=== PATIENT | male | born 1985 | race Caucasian/White ===

== ENCOUNTER 2017-05-17 11:17 | Emergency (ER) | payer OTHER ==
[2017-05-17 11:48] VITALS: BP 132/88
== END 2017-05-17 13:12 | disposition left against medical advice (07) ==
LOC: UCCORT 11:17
DX: Z53.21 Procedure and treatment not carried out due to patient leaving prior to being seen by health care provider (principal)

== ENCOUNTER 2017-05-22 08:44 | Emergency (ER) | payer OTHER ==
[2017-05-22 09:56] VITALS: BP 163/86
--- NOTE | 2017-05-22 10:27 | UC ---
Throat Pain/Nasal Chris HPI - HPI Summary HPI Summary: 31 year old male with sore throat. sick last week and ST started in the past day or so. finished chemo for stage 4 ca last month - History of Current Complaint Chief Complaint: UCGeneralIllness Stated Complaint: SORE THROAT Time Seen by Provider: 05/22/17 09:58 Hx Obtained From: Patient Onset/Duration: Sudden Onset Pain Intensity: 3 - Allergies/Home Medications Allergies/Adverse Reactions: Allergies Allergy/AdvReac Type Severity Reaction Status Date / Time No Known Allergies Allergy Verified 05/22/17 09:56 PMH/Surg Hx/FS Hx/Imm Hx Previously Healthy: Yes Cancer History: Colorectal Cancer Other History Of: Negative For: HIV, Hepatitis B, Hepatitis C - Surgical History Surgical History: Yes Surgery Procedure, Year, and Place: tonsillectomy, adenoid removal, mole removal , screws in right hand. RIGHT COLON RESECTION AND ANASTOMOSIS - Family History Known Family History: Positive: Cardiac Disease - WPW in family, Hypertension - Social History Occupation: Disabled Lives: With Family Alcohol Use: None Substance Use Type: Marijuana Smoking Status (MU): Heavy Every Day Tobacco Smoker Type: Cigarettes Amount Used/How Often: 1/2 ppd Length of Time of Smoking/Using Tobacco: 19 YRS Household Exposure Type: Cigarettes - Immunization History Most Recent Influenza Vaccination: not this season Most Recent Tetanus Shot: 2010 Review of Systems Constitutional: Negative Skin: Negative Eyes: Negative ENT: Sore Throat Respiratory: Negative Cardiovascular: Negative Gastrointestinal: Negative Genitourinary: Negative Motor: Negative Neurovascular: Negative Musculoskeletal: Negative Neurological: Negative Psychological: Negative Is Patient Immunocompromised?: Yes All Other Systems Reviewed And Are Negative: Yes Physical Exam Triage Information Reviewed: Yes Appearance: Well-Appearing, No Pain Distress, Well-Nourished Vital Signs: Initial Vital Signs Temp 99.2 F 05/22/17 09:52 Pulse 111 05/22/17 09:52 Resp 14 05/22/17 09:52 BP 163/86 05/22/17 09:52 Pulse Ox 100 05/22/17 09:52 Vital Signs Reviewed: Yes Eye Exam: Normal ENT Exam: Normal ENT: Positive: Pharyngeal erythema, Tonsillar swelling. Negative: Tonsillar exudate Dental Exam: Normal Neck exam: Normal Neck: Positive: 1 Respiratory Exam: Normal Cardiovascular Exam: Normal Musculoskeletal Exam: Normal Neurological Exam: Normal Psychological Exam: Normal Skin Exam: Normal Throat Pain/Nasal Course/Dx - Differential Dx/Diagnosis Provider Diagnoses: Strep throat Discharge - Discharge Plan Condition: Good Disposition: HOME Prescriptions: Amoxicillin PO (*) [Amoxicillin 875 MG (*)] 875 mg PO BID #20 tab Magic Mouth Was-DEREK/MAAL/LIDO* 5 ml SWISH SPIT QID #120 ml Patient Education Materials: Strep Throat (ED) Referrals: No Primary Care Phys,NOPCP [Primary Care Provider] - 4 Days (for follow up of high blood pressure )
== END 2017-05-22 10:38 | disposition home or self-care (01) ==
LOC: UCCORT 08:44
DX: J02.0 Streptococcal pharyngitis (principal); F17.210 Nicotine dependence, cigarettes, uncomplicated
CPT/HCPCS: 87651; 99212; G0463

== ENCOUNTER 2018-02-08 13:01 | Inpatient (IN) | payer OTHER ==
[2018-02-08] MEDS ORDERED: NS 0.9% 1000 ML* 1,000 ML IV ONE ×2 (13:08→16:38)
[2018-02-08] MEDS ORDERED: HYDROmorphone INJ* 2 MG/ML CARPUJECT SYRINGE IV SLOW PU ONE ×2 (13:21→15:41)
[2018-02-08] MEDS ORDERED: Ondansetron INJ* 2 MG/ML VIAL IV ONE (13:21)
--- NOTE | 2018-02-08 13:37 | ED ---
Abdominal Pain/Male - HPI Summary HPI Summary: Pt is a 32 year old M presenting to the ED with a chief complaint of abd pain due to a large central hernia. The pain started on 02/06/18 and is mainly in the L side of the hernia, but spreads bilaterally. His last BM was diarrhea which he strained to get out, and he vomits after any fluids are introduced to his system. His vomit is as dark as diarrhea. The pt has stage IV colon cancer in his lymph nodes but not in his bones or brain, and he had a hemicolectomy on his R side. The pt has Lichens syndrome. He has a cluster of lymph nodes that they are unsure is cancerous or not, and he had his second round of chemotherapy roughly 1 wk ago. The pt is prescribed 50mg fentanyl patches and PRN oxycodone q4hrs, and it does not help the pain. 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 - History of Current Complaint Chief Complaint: EDAbdPain Stated Complaint: ABD PAIN Time Seen by Provider: 02/08/18 13:08 Hx Obtained From: Patient Onset/Duration: Sudden Onset, Lasting Days, Still Present Timing: Constant Severity Initially: Severe Severity Currently: Severe Pain Intensity: 10 Pain Scale Used: 0-10 Numeric Location: Umbilical, Other - center abd Character: Sharp Aggravating Factor(s): Movement, Deep Breaths Alleviating Factor(s): Nothing Associated Signs And Symptoms: Positive: Nausea, Vomiting, Diarrhea - Allergies/Home Medications Allergies/Adverse Reactions: Allergies Allergy/AdvReac Type Severity Reaction Status Date / Time prochlorperazine Allergy Shakes Verified 02/08/18 13:04 [From Compazine] PMH/Surg Hx/FS Hx/Imm Hx Previously Healthy: No Endocrine/Hematology History: Denies: Hx Diabetes, Hx Thyroid Disease Cardiovascular History: Reports: Hx Myocardial Infarction Denies: Hx Congestive Heart Failure, Hx Deep Vein Thrombosis, Hx Hypertension , Hx Pacemaker/ICD Respiratory History: Reports: Hx Asthma - subsided when child Denies: Hx Chronic Obstructive Pulmonary Disease (COPD), Hx Lung Cancer, Hx Pneumonia, Hx Pulmonary Embolism GI History: Reports: Hx Ulcer - stomach--2 years ago. No problem for the last two months. Denies: Hx Gall Bladder Disease, Hx Gastrointestinal Bleed, Hx Urosepsis History: Denies: Hx Kidney Stones, Hx Renal Disease Neurological History: Denies: Hx Dementia, Hx Migraine, Hx Seizures, Hx Transient Ischemic Attacks (TIA) Psychiatric History: Reports: Hx Anxiety, Hx Depression Denies: Hx Schizophrenia, Hx Bipolar Disorder - Cancer History Cancer Type, Location and Year: STAGE 4 COLON CANCER Hx Chemotherapy: Yes - Surgical History Surgery Procedure, Year, and Place: tonsillectomy, adenoid removal, mole removal , screws in right hand. RIGHT COLON RESECTION AND ANASTOMOSIS Infectious Disease History: No Infectious Disease History: Denies: Hx Clostridium Difficile, Hx Hepatitis, Hx Human Immunodeficiency Virus (HIV), Hx of Known/Suspected MRSA, Hx Shingles, Hx Tuberculosis, Hx Known/ Suspected VRE, Hx Known/Suspected VRSA, History Other Infectious Disease, Traveled Outside the [place] in Last 30 Days - Family History Known Family History: Positive: Cardiac Disease - WPW in family, Hypertension - Social History Alcohol Use: None Substance Use Type: Reports: Marijuana Smoking Status (MU): Heavy Every Day Tobacco Smoker Type: Cigarettes Amount Used/How Often: 1/2 ppd Length of Time of Smoking/Using Tobacco: 19 YRS Review of Systems Negative: Fever Positive: Abdominal Pain, Vomiting, Diarrhea, Nausea All Other Systems Reviewed And Are Negative: Yes Physical Exam - Summary Physical Exam Summary: Appearance: Well appearing, moderate pain distress Skin: warm, dry, reflects adequate perfusion Head/face: normal Eyes: EOMI, MARK ENT: mucous membranes moist, some dental decay Neck: supple, non-tender Respiratory: some crackles that clear with cough, breath sounds present Cardiovascular: RRR, pulses symmetrical Abdomen: large abd defect with soft ventral and umbilical hernia that is reducible. Pain is throughout L side but mostly central near the hernia. Bowel Sounds: present Musculoskeletal: normal, strength/ROM intact, no ankle edema. Fentanyl patch on R arm and port on L chest. Neuro: normal, sensory motor intact, A&Ox3 Triage Information Reviewed: Yes Vital Signs On Initial Exam: Initial Vitals Temp Pulse Resp BP Pulse Ox 97.5 F 136 19 126/88 97 02/08/18 13:04 02/08/18 13:04 02/08/18 13:04 02/08/18 13:04 02/08/18 13:04 Vital Signs Reviewed: Yes Diagnostics - Vital Signs Vital Signs Temp Pulse Resp BP Pulse Ox 02/08/18 13:04 97.5 F 136 19 126/88 97 - Laboratory Result Diagrams: 02/08/18 13:25 02/08/18 13:25 Lab Statement: Any lab studies that have been ordered have been reviewed, and results considered in the medical decision making process. - CT ABD/PELV CT CT Interpretation: Positive (See Comments) - 1. SMALL BOWEL OBSTRUCTION WITH TRANSITION POINT AT THE LEVEL OF THE VENTRAL HERNIA. 2. DIVERTICULOSIS. 3. STABLE RETROPERITONEAL LYMPHADENOPATHY. CT Interpretation Completed By: Radiologist - ED physician has reviewed this report. - EKG 1326 Cardiac Rate: Tachycardia - 125bpm EKG Rhythm: Sinus Tachycardia ST Segment: Non-Specific Ectopy: None Re-Evaluation - Re-Evaluation First Eval Re-Evaluation Time: 15:00 Change: Improved Abdominal Pain Fem Course/Dx - Course Course Of Treatment: Pt with hx of Stage IV colon CA with recurrence post surg of L colonic mass. Lg ventral hernia with tenderness and dark emesis. SBO with transition at the hernia confirmed on CT. D/W Surgery who will see in consult, Oncology who will admit and hospitalist who are covering their admissions today. NG tube placed. Admit to floor. - Diagnoses Differential Diagnosis/HQI/PQRI: Abdominal Aortic Aneurysm, Bowel Obstruction, Constipation, Diverticulitis, Gall Bladder Disease, Ischemic Bowel Provider Diagnoses: Small bowel obstruction, History of colon cancer, stage IV Discharge - Sign-Out/Discharge Documenting (check all that apply): Patient Departure - admit - Discharge Plan Condition: Fair Disposition: ADMITTED TO [facility] Referrals: Emily Boyd PA [Primary Care Provider] - - Billing Disposition and Condition Condition: FAIR Disposition: Admitted to [facility] - Attestation Statements Document Initiated by Sushmaibsimone: Yes Documenting Scribe: Evie Christensen Provider For Whom Magalis is Documenting (Include Credential): Issa Rizo MD. Scribe Attestation: Evie Mariee scribed for Issa Rizo MD. on 02/08/18 at 1609. Scribe Documentation Reviewed: Yes Provider Attestation: The documentation as recorded by the Evie sauceda accurately reflects the service I personally performed and the decisions made by , Issa Rizo MD. Consult Consult: 2861 - Spoke with Chris Herman MD., in surgery about the pt's condition. He wants confirmation from oncology prior to admission. [id number] - Spoke with Anthony Snyder in Oncology who would like the pt to be admitted. [id number] - Spoke with Dr. Suhas Abdalla about the pt's condition. The pt will be admitted to the hospital.
[2018-02-08 13:45] LABS: ABS Basophils 0.1 10^3/ul (0-0.2); ABS Eosinophils 0.3 10^3/ul (0-0.6); ABS Lymphocytes 2.8 10^3/ul (1.0-4.8); ABS Monocytes 0.5 10^3/ul (0-0.8); ABS Neutrophils 5.9 10^3/ul (1.5-7.7); ABS Nucleated RBC 0.1 10^3/ul; Eosinophil % 2.9 % (0-6); Hematocrit 50 % (42-52); Hemoglobin 17.8 g/dl (14.0-18.0); Lymphocyte % 29.6 % (25-47); Mean Corpuscular HGB Conc 35 g/dl (31-36); Mean Corpuscular Hemoglobin 32 pg (27-31); Mean Corpuscular Volume 91 fL (80-94); Mean Platelet Volume 8.2 um3 (7.4-10.4); Platelet Count 318 10^3/ul (150-450); Red Blood Count 5.54 10^6/ul (4.00-5.40); Red Cell Distribution Width 14 % (10.5-15); White Blood Count 9.6 10^3/ul (3.5-10.8)
[2018-02-08 13:48] LABS: INR 1.02 (0.77-1.02)
[2018-02-08] MEDS: HYDROmorphone INJ1* 1 MG/ML SYRINGE IV SLOW PU ONE ×2 (13:50→15:59)
[2018-02-08 13:53] LABS: EGFR Non-African American 72.8 (>60)
[2018-02-08] MEDS ORDERED: Iohexol 300* (CONTRAST) 10 ML SDV IV ONE (14:13)
--- NOTE | 2018-02-08 15:10 | RAD ---
CLINICAL HISTORY: L sided, central abd pain, ? GI bleed. COMPARISON: December 27, 2017 TECHNIQUE: Multiple contiguous axial CT scans were obtained of the abdomen and pelvis after the administration of intravenous contrast. Coronal and sagittal multiplanar reformations are submitted for review. Oral contrast was not administered. Delayed images were obtained through the abdomen. FINDINGS: LUNG BASES: The lung bases are clear. LIVER: The liver is diffusely low in attenuation compared to the spleen. There are no focal hepatic parenchymal masses. BILE DUCTS: There is no intrahepatic or extrahepatic biliary dilatation. GALLBLADDER: The gallbladder is normal, without pericholecystic inflammatory change. PANCREAS: The pancreas is normal, without mass or ductal dilatation. SPLEEN: Normal in size and appearance. UPPER GI TRACT: Evaluation of the gastrointestinal tract is limited by incomplete gastric distention. The upper GI tract is unremarkable. SMALL BOWEL AND MESENTERY: There is distention mild dilatation of loops of small bowel with transition to decompressed small bowel at the level of a ventral hernia. COLON: There are multiple diverticula of the sigmoid colon. There is no pericolonic inflammatory change. ADRENALS: Normal bilaterally. KIDNEYS: The kidneys are normal in shape, size, contour, and axis. There is no hydronephrosis or nephrolithiasis. BLADDER: The bladder is smooth in contour. PELVIC ORGANS: The prostate gland is normal. The seminal vesicles are symmetric. AORTA: The aorta is normal. IVC: Unremarkable LYMPH NODES: There is portacaval, aortocaval, and periaortic lymphadenopathy, similar to the previous examination. ABDOMINAL WALL: There are ventral hernias containing small bowel with a transition point within the inferior most hernia sac. BONES AND SOFT TISSUES: Unremarkable OTHER: None IMPRESSION: 1. SMALL BOWEL OBSTRUCTION WITH TRANSITION POINT AT THE LEVEL OF THE VENTRAL HERNIA. 2. DIVERTICULOSIS. 3. STABLE RETROPERITONEAL LYMPHADENOPATHY.
[2018-02-08] MEDS ORDERED: HYDROmorphone INJ1* 1 MG/ML SYRINGE ONE (15:54)
[2018-02-08] MEDS ORDERED: HYDROmorphone INJ* 0.5 MG/0.5 ML SYRINGE IV SLOW PU PRN (16:31)
[2018-02-08] MEDS ORDERED: Mouth Piece, Nicotine* 1 EACH CARTRIDGE INH PRN (16:42)
[2018-02-08] MEDS ORDERED: Nicotine Inhaler* 10 MG AMP INH PRN (16:42)
[2018-02-08] MEDS: Ondansetron INJ* 2 MG/ML VIAL IV PRN (18:39)
--- NOTE | 2018-02-08 19:07 | HP ---
AMENDED REPORT NOW INCLUDES DESIGNATED COSIGNER CC: SHAD Gomez * HOSPITAL MEDICINE HISTORY AND PHYSICAL: DATE OF ADMISSION: 02/08/18 PRIMARY CARE PHYSICIAN: SHAD Gomez ATTENDING PHYSICIAN: Dr. Kavon Abdalla * (dictation provided by Renae Stephen NP). CHIEF COMPLAINT: Abdominal pain with nausea and vomiting. HISTORY OF PRESENT ILLNESS: Mr. 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 Mr. Sepulveda states he has been doing reasonably well until Friday, at that point he developed nausea and vomiting associated with pain in the mid to left side of his ventral hernia. The pain was constant. He was unable to tolerate any oral intake since Friday. He states he vomits even after drinking water. He has no fever, no chills. He has had no chest pain or shortness of breath. His last formed bowel movement was yesterday. He was recently seen in consultation with Dr. Gregorio on 01/05/18 for his history of Ram syndrome. At that time, plans were to initiate FOLFIRI without Avastin. The patient states he has had 2 rounds of that with a last dose being last Friday. There was concern for CT/PET scan activity in the splenic flexure per review of CT scan at that point. In the emergency room, Mr. Sepulveda had a normal white blood cell count. His vitals show that he is tachycardic with a heart rate running in one teens to 120s. He is afebrile. His blood pressure is stable at 118/87. He had a CT abdomen and pelvis, which showed a small bowel obstruction in the ventral hernia. PAST MEDICAL HISTORY: Ram syndrome with colon cancer, status post right hemicolectomy, currently on chemotherapy with FOLFIRI without Avastin. ALLERGIES: To PROCHLORPERAZINE. FAMILY HISTORY: Maternal grandfather with colon cancer at 63, dying at 66. Paternal uncle with both pancreatic and colon cancer at 50. Paternal first cousin with colon cancer at 32. Paternal uncle with multiple cancers including pancreatic, stomach, and colon at age 55. Father is alive at 54. Mother is alive and well at 54. He has 2 children ages 9 and 10. SOCIAL HISTORY: The patient is a pack-a-day smoker. No report of alcohol use recently. The patient is and lives with his significant other, Cheryl Adams, who would be the healthcare proxy. REVIEW OF SYSTEMS: A 14-point review of systems was completed with Mr. Sepulveda and all those not mentioned above were negative. PHYSICAL EXAMINATION GENERAL: Mr. Sepulveda is lying in the bed with his at the bedside. He does not appear to be in acute distress. VITAL SIGNS: Temperature 97.5, pulse rate 112, respiratory rate 23, O2 saturation 94% on room air, blood pressure 118/87. LUNGS: Clear to auscultation bilaterally with no accessory muscle use and good aeration. HEART: S1, S2. No murmur, rub, or gallop and regular. ABDOMEN: Protuberant. It is soft. Bowel sounds are actually positive. The patient tenderness throughout his ventral hernia, most prominently along the left side of the hernia, but no significant pain otherwise. EXTREMITIES: No cyanosis or edema. NEURO: He is alert. He is oriented x3. He moves all extremities equally. There is no facial asymmetry or focal weakness. Extraocular movements are intact. SKIN: Intact. DIAGNOSTIC STUDIES/LAB DATA: WBC 9.6, hemoglobin 17.8, hematocrit 50, platelet count 318. INR 1.02. Sodium 135, potassium 4.1, chloride 97, serum bicarbonate 25, BUN 18, creatinine 1.15, glucose 134, lactic acid 1.5. CRP 46.99. The abdomen and pelvis CT is read as follows: "Small bowel obstruction with transition point at the level of ventral hernia, diverticulosis, stable retroperitoneal lymphadenopathy." The patient's EKG was sinus tachycardia with a heart rate of 120 with no evidence of ischemia. ASSESSMENT AND PLAN: Mr. Sepulveda is a 32-year-old male with a past medical history of Ram syndrome with colon cancer, status post right hemicolectomy with a subsequent ventral hernia, now on chemotherapy under the management of Dr. Gregorio, who presents today with abdominal pain, nausea, found to have a small bowel obstruction at the site of his ventral hernia. Our plans are for inpatient admission as I expect his length of stay to be greater than 2 days for the followin. Small bowel obstruction. The patient has had an NG tube placed in the emergency room with approximately 800 mL of bilious fluid out. He states he has continued having pain, but the Dilaudid that he has been given here in the ED is helping. We will continue with his fentanyl patch and Dilaudid p.r.n. We will can adjust the pain medications as needed. Surgical services have been consulted and Dr. Herman is at the bedside now performing a consultation. The patient will be seen by Oncology tomorrow. The patient does appear to be dehydrated, though his BUN and creatinine are normal and his blood pressure is stable, he is tachycardic. He reports last urination this morning. We will give an additional liter of normal saline now and continue with maintenance fluid. We will monitor his I's and O's closely and adjust fluids as needed. 2. Nicotine use. The patient has asked for and will be given nicotine replacement therapy. 3. Code status is full code. 4. Disposition: To medical floor. TIME SPENT: Approximately 60 minutes were spent on the admission of this patient, more than half the time spent with the patient at the bedside reviewing the events leading up to this hospitalization, performing the physical examination, and reviewing the plan of care. RENAE STEPHEN NP [id number]/CPS #: [id number] ENRIQUE
[2018-02-08] MEDS: HYDROmorphone INJ1* 1 MG/ML SYRINGE IV SLOW PU PRN ×2 (19:17→23:14)
[2018-02-08] MEDS: fentaNYL PATCH 50 MCG/HR TRANSDERM SCH (19:18)
[2018-02-08] MEDS: fentaNYL Patch Check Q Shift 1 NOTE FOLLOW UP SCH (19:25)
[2018-02-08] MEDS: NS 0.9% 1000 ML* 1,000 ML IV SCH (20:21)
--- NOTE | 2018-02-08 20:44 | CONS ---
CC: Jose Gregorio MD; SHAD Gomez * SURGICAL CONSULTATION REPORT: DATE OF CONSULT: 02/08/18 LOCATION: Emergency room. REASON FOR CONSULT: Small bowel obstruction. HISTORY OF PRESENT ILLNESS: Mr. Sepulveda is a 32-year-old male with history of Ram syndrome with metastatic colon carcinoma, currently on chemotherapy. The patient was diagnosed in early 2016 and found to have a mass in the cecum associated with retroperitoneal lymphadenopathy. He also had a reported sessile polyp in the proximal transverse colon on his colonoscopy. The patient has had a laparoscopic right hemicolectomy 07/26/16 and found to have 36 of 55 involved lymph nodes. Pathology was [id number] colon cancer. Subsequently, the patient had undergone chemotherapy through [facility] as well as at [place], but had progression of disease. In April of this year , he reportedly was noted to have a ventral incisional hernia and had pain from that, but due to his cancer diagnosis, no recommendation was for repair. Over the past 3 to 4 days, he has had issues with nausea, vomiting postprandially, but had been passing gas and bowel movements up until yesterday. He had been intermittently tolerating solid food, but only tolerating liquids well up until today and due to his worsening pain, nausea and vomiting, he came to the emergency room. In the emergency room, he has had a nasogastric tube placed with 700 mL bilious fluid return. He reports feeling better since the placement of the NG tube. PAST MEDICAL HISTORY: As above. PAST SURGICAL HISTORY: As above. MEDICATIONS: He is on: 1. Fentanyl patch 50 mcg. 2. Oxycodone 5 mg q.4 hours p.r.n. 3. Senna 1 tab p.o. daily. 4. Colace 100 mg p.o. daily. ALLERGIES: To PROCHLORPERAZINE. FAMILY HISTORY: Notable for multiple family members with colon cancer. Mother and father alive and well. SOCIAL HISTORY: He is . He is cigarette smoker. PHYSICAL EXAM: 5 feet 10 inches, 260 pounds, BMI 37.3. He has temperature of 97.5, blood pressure is 118/87, pulse 112, respirations 16, O2 sat is 94% on room air. Head is normocephalic, atraumatic. Sclerae anicteric. Mucous membranes moist. NG tube is in the right naris draining bilious fluid. Abdomen is obese. There is well healed midline scar. Bowel sounds are present. It is soft throughout. There is a ventral incisional hernia in the mid abdomen superior to the umbilicus with tenderness on the left greater than the right. He has no peritoneal signs. DIAGNOSTIC STUDIES/LAB DATA: His WBCs are 9.6, hemoglobin is 7.8, platelet count of 318. There is no shift. INR 1.02. Sodium 135, potassium 4.1, chloride 97, bicarb 25, BUN 18, creatinine 1.15, glucose 134, lactic acid 1.5. Total bili 1.1 which is elevated, AST and ALT are normal. Albumin 4.8, lipase 22. His CRP is 47. CT scan abdomen and pelvis with oral and IV contrast, images were reviewed by me and findings notable for evidence of small bowel obstruction with a transition zone within the hernia, which contains both dilated and decompressed small bowel. The hernia is wide based at least 10 cm across. He has retroperitoneal lymphadenopathy and there is no free fluid or free air. IMPRESSION: A 32-year-old male with Ram syndrome and metastatic colon carcinoma with ventral incisional hernia, which is wide based. He has a small bowel obstruction likely on the basis of adhesions not due to the hernia. He does not have an acute abdomen. PLAN/RECOMMENDATIONS: As he is already improving with nasogastric tube decompression, we would continue the same and keep him n.p.o. IV fluids for hydration. Close followup of his lab work and vital signs. [facility] will follow with you. I have discussed the findings and the plan with the patient and his . All their questions were answered and they agreed. [id number]/[facility] #: [id number] [facility]
[2018-02-08 23:02] LABS: Urine Appearance Clear; Urine Blood Negative (Negative); Urine Color Amber; Urine Ketones Negative (Negative); Urine Protein 1+(30 mg/dL) (Negative); Urine Red Blood Cell Absent (Absent); Urine Specific Gravity > 1.060 (1.010-1.030); Urine Urobilinogen Negative (Negative); Urine White Blood Cell Absent (Absent)
[2018-02-08] MEDS: Heparin VIAL(*) 5000 UNITS/ML VIAL (FIVE THOUSAND) SUBCUT SCH (23:17)
[2018-02-09] MEDS: HYDROmorphone INJ1* 1 MG/ML SYRINGE IV SLOW PU PRN ×5 (03:44→19:54)
[2018-02-09] MEDS: Heparin VIAL(*) 5000 UNITS/ML VIAL (FIVE THOUSAND) SUBCUT SCH ×3 (05:06→20:02)
[2018-02-09 06:00] LABS: ABS Basophils 0 10^3/ul (0-0.2); ABS Eosinophils 0.3 10^3/ul (0-0.6); ABS Lymphocytes 2.2 10^3/ul (1.0-4.8); ABS Monocytes 0.6 10^3/ul (0-0.8); ABS Neutrophils 4.1 10^3/ul (1.5-7.7); ABS Nucleated RBC 0 10^3/ul; Eosinophil % 4.7 % (0-6); Hematocrit 46 % (42-52); Hemoglobin 15.9 g/dl (14.0-18.0); Lymphocyte % 30.3 % (25-47); Mean Corpuscular HGB Conc 35 g/dl (31-36); Mean Corpuscular Hemoglobin 32 pg (27-31); Mean Corpuscular Volume 92 fL (80-94); Nucleated Red Blood Cells % 0.1; Platelet Count 246 10^3/ul (150-450); Red Blood Count 5.01 10^6/ul (4.00-5.40); Red Cell Distribution Width 15 % (10.5-15); White Blood Count 7.2 10^3/ul (3.5-10.8)
[2018-02-09] MEDS: NS 0.9% 1000 ML* 1,000 ML IV SCH ×2 (06:25→16:16)
[2018-02-09] MEDS: fentaNYL Patch Check Q Shift 1 NOTE FOLLOW UP SCH ×2 (07:09→18:34)
[2018-02-09] MEDS: Nicotine PATCH 21 MG/24 HR* PATCH TRANSDERM SCH (07:50)
[2018-02-09] MEDS: Ondansetron INJ* 2 MG/ML VIAL IV PRN ×3 (07:50→21:36)
--- NOTE | 2018-02-09 08:06 | RAD ---
INDICATION: Nasogastric tube placement COMPARISON: Chest x-ray July 17, 2016 TECHNIQUE: Single AP portable view of the chest was obtained. FINDINGS: Image quality is compromised due to the relative inferiority of a portable chest x-ray. The gastric tube tip terminates below the level of the diaphragm at the expected location of the gastric fundus. Since the prior chest x-ray there has been placement of a left subclavian vein Mediport with the tip terminating at the superior vena cava. The heart and mediastinum exhibit normal size and contour. The lungs are grossly clear. There is no evidence of a large pleural effusion. Visualized bones are normal for the patient's age. IMPRESSION: Appropriately positioned gastric tube.
--- NOTE | 2018-02-09 09:34 | PN ---
Progress Note - Progress Note Date of Service: 02/09/18 SOAP: Subjective: []Feels a lot better then yesterday. Still a little tender in the abd., but passing gas. No nausea. Really wants to eat. Medications: Device (Nicotine Mouth Piece*) 1 each INH .USE WITH NICOTROL PRN PRN Reason: CRAVING Fentanyl (Duragesic Patch 50 Mcg/Hr*) 50 mcg TRANSDERM Q72H [facility] Last Admin: 02/08/18 19:18 Dose: 50 mcg Heparin Sodium (Porcine) (Heparin Vial(*)) 5,000 units SUBCUT Q8HR [facility] Last Admin: 02/09/18 05:06 Dose: 5,000 units Hydromorphone HCl (Dilaudid Inj1s*) 1 mg IV SLOW PU Q4H PRN PRN Reason: PAIN Last Admin: 02/09/18 07:49 Dose: 1 mg Sodium Chloride (Ns 0.9% 1000 Ml*) 1,000 mls @ 100 mls/hr IV PER RATE [facility] Last Admin: 02/09/18 06:25 Dose: 100 mls/hr Nicotine (Nicotine Inhaler*) 10 mg INH Q2H PRN PRN Reason: CRAVING Nicotine (Nicotine Patch 21 Mg/24 Hr*) 1 patch TRANSDERM DAILY@0800 [facility] Last Admin: 02/09/18 07:50 Dose: 1 patch Ondansetron HCl (Zofran Inj*) 4 mg IV Q6H PRN PRN Reason: NAUSEA Last Admin: 02/09/18 07:50 Dose: 4 mg Pharmacy Profile Note (Fentanyl Patch Check Q Shift) 1 note FOLLOW UP 0700, 1900 [facility] Last Admin: 02/09/18 07:09 Dose: 1 note Objective: [] Vital Signs Temp Pulse Resp BP Pulse Ox 98.2 F 105 19 104/60 93 02/09/18 07:42 02/09/18 08:00 02/09/18 08:00 02/09/18 07:42 02/09/18 08:00 A&Ox3, EOMI, OLMOS, neuro grossly non-focal HRR, S1S2 LS clear bilat. throughout with even and non-labored resp. NG with green output, minimal +BS x4 quads, abd. soft with tenderness to ventral hernia and LLQ +PP=bilat., no edema noted Laboratory Results - last 24 hr 10/21/18 10/21/18 10/21/18 13:25 13:25 13:25 WBC 9.6 RBC 5.54 H Hgb 17.8 Hct 50 MCV 91 MCH 32 H MCHC 35 RDW 14 Plt Count 318 MPV 8.2 Neut % (Auto) 61.4 Lymph % (Auto) 29.6 [place] % (Auto) 5.1 Eos % (Auto) 2.9 Baso % (Auto) 1.0 Absolute Neuts (auto) 5.9 Absolute Lymphs (auto) 2.8 Absolute Monos (auto) 0.5 Absolute Eos (auto) 0.3 Absolute Basos (auto) 0.1 Absolute Nucleated RBC 0.1 Nucleated RBC % 1.0 INR (Anticoag Therapy) 1.02 Sodium 135 Potassium 4.1 Chloride 97 L Carbon Dioxide 25 Anion Gap 13 H BUN 18 Creatinine 1.15 Est GFR ( Amer) 88.1 Est GFR (Non-Af Amer) 72.8 BUN/Creatinine Ratio 15.7 Glucose 134 H Lactic Acid Calcium 10.1 Total Bilirubin 1.10 H AST 18 ALT 32 Alkaline Phosphatase 75 C-Reactive Protein 46.99 H Total Protein 8.7 Albumin 4.8 Globulin 3.9 Albumin/Globulin Ratio 1.2 Lipase 22 Urine Color Urine Appearance Urine pH Ur Specific [place] Urine Protein Urine Ketones Urine Blood Urine Nitrate Urine Bilirubin Urine Urobilinogen Ur Leukocyte Esterase Urine WBC (Auto) Urine RBC (Auto) Urine Bacteria Urine Glucose 02/08/18 02/08/18 02/08/18 13:26 16:45 22:00 WBC RBC Hgb Hct MCV MCH MCHC RDW Plt Count MPV Neut % (Auto) Lymph % (Auto) [place] % (Auto) Eos % (Auto) Baso % (Auto) Absolute Neuts (auto) Absolute Lymphs (auto) Absolute Monos (auto) Absolute Eos (auto) Absolute Basos (auto) Absolute Nucleated RBC Nucleated RBC % INR (Anticoag Therapy) Sodium 136 Potassium 4.1 Chloride 98 L Carbon Dioxide 27 Anion Gap 11 BUN 17 Creatinine 1.06 Est GFR ( Amer) 96.8 Est GFR (Non-Af Amer) 80.0 BUN/Creatinine Ratio 16.0 Glucose 112 H Lactic Acid 1.5 Calcium 9.3 Total Bilirubin AST ALT Alkaline Phosphatase C-Reactive Protein Total Protein Albumin Globulin Albumin/Globulin Ratio Lipase Urine Color [place] Urine Appearance Clear Urine pH 5.0 Ur Specific [place] > 1.060 H Urine Protein 1+(30 mg/dl) A Urine Ketones Negative Urine Blood Negative Urine Nitrate Negative Urine Bilirubin Negative Urine Urobilinogen Negative Ur Leukocyte Esterase Negative Urine WBC (Auto) Absent Urine RBC (Auto) Absent Urine Bacteria Absent Urine Glucose Negative 02/09/18 05:48 WBC 7.2 RBC 5.01 Hgb 15.9 Hct 46 MCV 92 MCH 32 H MCHC 35 RDW 15 Plt Count 246 MPV 8.0 Neut % (Auto) 55.9 Lymph % (Auto) 30.3 [place] % (Auto) 8.4 H Eos % (Auto) 4.7 Baso % (Auto) 0.7 Absolute Neuts (auto) 4.1 Absolute Lymphs (auto) 2.2 Absolute Monos (auto) 0.6 Absolute Eos (auto) 0.3 Absolute Basos (auto) 0 Absolute Nucleated RBC 0 Nucleated RBC % 0.1 INR (Anticoag Therapy) Sodium Potassium Chloride Carbon Dioxide Anion Gap BUN Creatinine Est GFR ( Amer) Est GFR (Non-Af Amer) BUN/Creatinine Ratio Glucose Lactic Acid Calcium Total Bilirubin AST ALT Alkaline Phosphatase C-Reactive Protein Total Protein Albumin Globulin Albumin/Globulin Ratio Lipase Urine Color Urine Appearance Urine pH Ur Specific [place] Urine Protein Urine Ketones Urine Blood Urine Nitrate Urine Bilirubin Urine Urobilinogen Ur Leukocyte Esterase Urine WBC (Auto) Urine RBC (Auto) Urine Bacteria Urine Glucose Assessment: []32 yo male with metastatic colon cancer currently receiving palliative FOLFIRI , s/p C2 02/02, admitted last night with SBO now improved with NG tube. Plan: []1. Trial clamping tube and start clear liquids - per surgery could consider d/c this evening if tolerating, though I am apt to monitor him overnight, will re-eval. this evening
--- NOTE | 2018-02-09 12:07 | PN ---
Progress Note - Progress Note Date of Service: 02/09/18 SOAP: Subjective: Passing flatus. Objective: Vital Signs Temp 98.2 F 02/09/18 07:42 Pulse 105 02/09/18 08:00 Resp 17 02/09/18 11:56 BP 104/60 02/09/18 07:42 Pulse Ox 93 02/09/18 08:00 Gen: NAD Abd: soft, NT; +BS. Intake & Output 02/08/18 02/09/18 02/09/18 18:59 06:59 18:59 Intake Total 1000 2158 Output Total 600 1500 Balance 400 658 Weight 259 lb 4.8 oz Intake: IV Fluids 1000 1978 NS 1978 Oral 180 Output: NG Tube Drainage Amount 600 800 Urine 700 Other: Estimated Void Small # Bowel Movements 0 # Voids 1 Assessment: SBO due to adhesions. Clinically improved. Would not recommend elective hernia repair unless he is able to be off chemotherapy for extended period of time. Plan: OK to transition diet to low residue. /patient understand and agree. F/u with HUGO beardn.
[2018-02-10] MEDS: HYDROmorphone INJ1* 1 MG/ML SYRINGE IV SLOW PU PRN ×5 (00:47→18:51)
[2018-02-10] MEDS: NS 0.9% 1000 ML* 1,000 ML IV SCH ×4 (02:24→23:14)
[2018-02-10] MEDS: Ondansetron INJ* 2 MG/ML VIAL IV PRN ×5 (04:50→23:01)
[2018-02-10] MEDS: Heparin VIAL(*) 5000 UNITS/ML VIAL (FIVE THOUSAND) SUBCUT SCH ×3 (04:50→23:01)
[2018-02-10] MEDS: fentaNYL Patch Check Q Shift 1 NOTE FOLLOW UP SCH ×2 (07:10→18:51)
[2018-02-10] MEDS: Nicotine PATCH 21 MG/24 HR* PATCH TRANSDERM SCH (08:43)
[2018-02-10] MEDS ORDERED: Alteplase (CATHFLO)* 2 MG/2 ML VIAL IV ONE ×2 (09:30→12:14)
[2018-02-10 10:09] LABS: EGFR Non-African American 82.7 (>60)
--- NOTE | 2018-02-10 10:13 | PN ---
Progress Note - Progress Note Date of Service: 02/10/18 SOAP: Subjective: [Patient failed trial of clear liquids yesterday. NG tube replaced. His NG output overnight was quite high (~5L). He reports that he has been chewing on a lot of ice chips and drinking the water from the melted ice. No c/o nausea. No abd pain. Passing large amounts of gas, no BM. ] Objective: [ Device (Nicotine Mouth Piece*) 1 each INH .USE WITH NICOTROL PRN PRN Reason: CRAVING Fentanyl (Duragesic Patch 50 Mcg/Hr*) 50 mcg TRANSDERM Q72H [facility] Last Admin: 02/08/18 19:18 Dose: 50 mcg Heparin Sodium (Porcine) (Heparin Vial(*)) 5,000 units SUBCUT Q8HR [facility] Last Admin: 02/10/18 04:50 Dose: 5,000 units Hydromorphone HCl (Dilaudid Inj1s*) 1 mg IV SLOW PU Q4H PRN PRN Reason: PAIN Last Admin: 02/10/18 04:50 Dose: 1 mg Sodium Chloride (Ns 0.9% 1000 Ml*) 1,000 mls @ 100 mls/hr IV PER RATE [facility] Last Admin: 02/10/18 02:24 Dose: 100 mls/hr Nicotine (Nicotine Inhaler*) 10 mg INH Q2H PRN PRN Reason: CRAVING Nicotine (Nicotine Patch 21 Mg/24 Hr*) 1 patch TRANSDERM DAILY@0800 [facility] Last Admin: 02/10/18 08:43 Dose: 1 patch Ondansetron HCl (Zofran Inj*) 4 mg IV Q6H PRN PRN Reason: NAUSEA Last Admin: 02/10/18 04:50 Dose: 4 mg Pharmacy Profile Note (Fentanyl Patch Check Q Shift) 1 note FOLLOW UP 0700, 1900 [facility] Last Admin: 02/10/18 07:10 Dose: 1 note Laboratory Results - last 24 hr 02/09/18 05:48 Hemoglobin A1c 5.6 Vital Signs: Temp Pulse Resp BP Pulse Ox 96.9 F 109 20 118/82 90 02/10/18 07:39 02/10/18 07:39 02/10/18 07:39 02/10/18 07:39 02/10/18 07:39 Exam: Gen: Relatively well appearing, in NAD. Accompanied by his . HEENT: NGT in place CV: RRR, mildly tachy, no m/r/g Resp: CTA Abd: soft, nonTTP, hernia reducible, bowel sounds present in all quadrants - slightly hypoactive. Ext: no edema] Assessment: 32 yo male with metastatic CRC on palliative FOLFIRI s/p C2 02/02/18. Admitted with SBO. Attempted progressing his diet yesterday, which failed. Back to NG with suction overnight. Large output from NG overnight likely due to his large intake of ice chips/water. Plan: 1. SBO - check KUB this am - if bowel gas pattern appears improved then will clamp NG and slowly advance diet - surgery consult appreciated 2. Metastatic CRC - palliative chemotherapy with FOLFIRI 3. Chronic pain - due to ventral hernia - under the care of pain management 4. Obesity - BMI 37 Dispo: cont inpatient stay, pending KUB
--- NOTE | 2018-02-10 10:51 | RAD ---
Indication: Evaluate for small bowel obstruction [employer] film of the abdomen demonstrates dilated loops of small bowel. This is located centrally. Possibility of gas is noted in the right colon. IMPRESSION: Persistent dilated loops of small bowel bowel consistent with persistent small bowel obstruction.
[2018-02-10] MEDS: Pantoprazole IV* 40 MG IV SCH (13:02)
--- NOTE | 2018-02-10 16:59 | PN ---
Progress Note - Progress Note Date of Service: 02/10/18 SOAP: Subjective:increased abd pain,no flatus,no stools [] Objective:abd:quiet,distended,tender midline,mild guarding Vital Signs Temp 97.3 F 02/10/18 10:53 Pulse 109 02/10/18 10:53 Resp 20 02/10/18 14:45 BP 130/74 02/10/18 10:53 Pulse Ox 94 02/10/18 10:53 Intake & Output 02/09/18 02/10/18 02/10/18 18:59 06:59 18:59 Intake Total 450 2902 990 Output Total 4800 2450 Balance 450 -2418 -1460 Intake: IV Fluids 2222 990 NS 2222 990 Oral 450 680 0 Output: NG Tube Drainage Amount 4400 2000 Urine 400 450 Other: Estimated Void Medium # Bowel Movements 0 0 # Voids 1 AXR today with persistent dilated loops small bowel [] Assessment:failed clear liquids yesterday,NG reinserted,large NG output [] Plan:continue NG,IV rate increased,AXR and labs 02/11/18;will follow with you []
[2018-02-10] MEDS: HYDROmorphone INJ1* 1 MG/ML SYRINGE IV PRN (23:02)
[2018-02-11] MEDS: Ondansetron INJ* 2 MG/ML VIAL IV PRN ×5 (03:22→19:47)
[2018-02-11] MEDS: HYDROmorphone INJ1* 1 MG/ML SYRINGE IV PRN ×5 (03:23→19:47)
[2018-02-11] MEDS: Heparin VIAL(*) 5000 UNITS/ML VIAL (FIVE THOUSAND) SUBCUT SCH (05:13)
[2018-02-11 05:31] LABS: ABS Basophils 0 10^3/ul (0-0.2); ABS Eosinophils 0.1 10^3/ul (0-0.6); ABS Lymphocytes 0.9 10^3/ul (1.0-4.8); ABS Monocytes 0.6 10^3/ul (0-0.8); ABS Neutrophils 1.5 10^3/ul (1.5-7.7); ABS Nucleated RBC 0 10^3/ul; Eosinophil % 3.9 % (0-6); Hematocrit 40 % (42-52); Hemoglobin 13.8 g/dl (14.0-18.0); Lymphocyte % 28.6 % (25-47); Mean Corpuscular HGB Conc 35 g/dl (31-36); Mean Corpuscular Hemoglobin 32 pg (27-31); Mean Corpuscular Volume 92 fL (80-94); Mean Platelet Volume 8.2 um3 (7.4-10.4); Nucleated Red Blood Cells % 0.1; Platelet Count 148 10^3/ul (150-450); Red Blood Count 4.35 10^6/ul (4.00-5.40); Red Cell Distribution Width 14 % (10.5-15); White Blood Count 3.2 10^3/ul (3.5-10.8)
[2018-02-11 05:54] LABS: EGFR Non-African American 85.5 (>60)
[2018-02-11] MEDS: fentaNYL Patch Check Q Shift 1 NOTE FOLLOW UP SCH ×2 (07:08→19:53)
[2018-02-11] MEDS: NS 0.9% 1000 ML* 1,000 ML IV SCH ×2 (07:13→23:55)
[2018-02-11] MEDS: Nicotine PATCH 21 MG/24 HR* PATCH TRANSDERM SCH (09:25)
[2018-02-11] MEDS: Pantoprazole IV* 40 MG IV SCH (09:27)
--- NOTE | 2018-02-11 09:39 | RAD ---
Indication: Reevaluate small bowel obstruction. History of RIGHT colon resection. Comparison: February 10, 2018 Technique: Supine view of the abdomen. Report: Tip of nasogastric tube at level of gastric pylorus. Decreased length of small bowel dilatation with single persistent dilated small bowel loop up to 5.9 cm diameter at the LEFT upper quadrant. RIGHT upper quadrant bowel anastomosis. No suspicious calcifications or mass effect evident. IMPRESSION: #. Interval partial resolution of small bowel obstruction.
[2018-02-11] MEDS ORDERED: Iohexol 300* (CONTRAST) 10 ML SDV IV ONE (09:59)
--- NOTE | 2018-02-11 10:00 | PN ---
Progress Note - Progress Note Date of Service: 02/11/18 SOAP: Subjective: feels better this am. no abdominal pain. passing gas from below. hypoxic over night, which he attributes to over medication, though still hypoxic and tachycardic. Objective: Vital Signs Temp Pulse Resp BP Pulse Ox 98.7 F 121 17 155/99 86 02/11/18 03:33 02/11/18 03:33 02/11/18 08:31 02/11/18 03:33 02/11/18 03:33 sitting up in nad perr eomi ngt in place, draining brownish liquid tachycardic dec bs at bases relatively soft, nontender, absent BS no le edema port left chest wall clean A+O x 3 nonfocal neurological exam Laboratory Results - last 24 hr 02/10/18 02/11/18 02/11/18 09:36 05:20 05:20 WBC 3.2 L RBC 4.35 Hgb 13.8 L Hct 40 L MCV 92 MCH 32 H MCHC 35 RDW 14 Plt Count 148 L MPV 8.2 Neut % (Auto) 48.3 Lymph % (Auto) 28.6 [place] % (Auto) 19.0 H Eos % (Auto) 3.9 Baso % (Auto) 0.2 Absolute Neuts (auto) 1.5 Absolute Lymphs (auto) 0.9 L Absolute Monos (auto) 0.6 Absolute Eos (auto) 0.1 Absolute Basos (auto) 0 Absolute Nucleated RBC 0 Nucleated RBC % 0.1 Sodium 141 141 Potassium 3.6 3.6 Chloride 101 101 Carbon Dioxide 29 30 Anion Gap 11 10 BUN 18 18 Creatinine 1.03 1.00 Est GFR ( Amer) 100.0 103.5 Est GFR (Non-Af Amer) 82.7 85.5 BUN/Creatinine Ratio 17.5 18.0 Glucose 109 H 91 Calcium 8.9 8.6 Total Bilirubin 1.70 H 2.00 H AST 24 16 ALT 41 28 Alkaline Phosphatase 76 71 Total Protein 7.4 6.8 Albumin 4.1 3.8 Globulin 3.3 3.0 Albumin/Globulin Ratio 1.2 1.3 Device (Nicotine Mouth Piece*) 1 each INH .USE WITH NICOTROL PRN PRN Reason: CRAVING Fentanyl (Duragesic Patch 50 Mcg/Hr*) 50 mcg TRANSDERM Q72H [facility] Last Admin: 02/08/18 19:18 Dose: 50 mcg Heparin Sodium (Porcine) (Heparin Vial(*)) 5,000 units SUBCUT Q8HR [facility] Last Admin: 02/11/18 05:13 Dose: 5,000 units Hydromorphone HCl (Dilaudid Inj1s*) 2 mg IV Q4H PRN PRN Reason: PAIN Last Admin: 02/11/18 07:22 Dose: 2 mg Sodium Chloride (Ns 0.9% 1000 Ml*) 1,000 mls @ 150 mls/hr IV PER RATE [facility] Last Admin: 02/11/18 07:13 Dose: 150 mls/hr Nicotine (Nicotine Inhaler*) 10 mg INH Q2H PRN PRN Reason: CRAVING Nicotine (Nicotine Patch 21 Mg/24 Hr*) 1 patch TRANSDERM DAILY@0800 [facility] Last Admin: 02/11/18 09:25 Dose: 1 patch Ondansetron HCl (Zofran Inj*) 4 mg IV Q4H PRN PRN Reason: NAUSEA Last Admin: 02/11/18 07:22 Dose: 4 mg Pantoprazole Sodium (Protonix Iv*) 40 mg IV DAILY [facility] Last Admin: 02/11/18 09:27 Dose: 40 mg Pharmacy Profile Note (Fentanyl Patch Check Q Shift) 1 note FOLLOW UP 0700, 1900 [facility] Last Admin: 02/11/18 07:08 Dose: 1 note abd xray: improving SBO Assessment: 32 yo M w metastatic CRC and ventral hernia admitted with SBO, now appears to be improving with bowel rest and suction. Tachycardic at baseline apparently and hypoxic over night (?medication related) though reasonable to rule out PE given comorbidities. Plan: SBO: cont conservative measures -may need to consider TPN, will d/w Dr. Gregorio -cont low wall suction -surgery following -cont fentanyl patch and dilaudid pancytopenia: -chemotherapy related, today day 10, may drop further. will need to watch dvt prophylaxis: heparin sc full cod3e
--- NOTE | 2018-02-11 10:34 | PN ---
Progress Note - Progress Note Date of Service: 02/11/18 SOAP: Subjective: He has no pain and is passing flatus. Objective: Vital Signs Temp 97.3 F 02/11/18 07:20 Pulse 117 02/11/18 07:19 Resp 17 02/11/18 08:31 BP 116/71 02/11/18 07:19 Pulse Ox 99 02/11/18 07:19 Gen: sitting up in bed; NAD Abd: obese; soft; NT Intake & Output 02/10/18 02/11/18 02/11/18 18:59 06:59 18:59 Intake Total 990 2000 Output Total 2450 3650 Balance -1460 -1650 Intake: IV Fluids 990 1640 NS 990 1640 Oral 0 360 Output: NG Tube Drainage Amount 1999 1700 Urine 450 950 Emesis 1000 Other: Estimated Void Large # Bowel Movements 0 0 # Voids 1 Laboratory Results - last 24 hr 02/11/18 02/11/18 05:20 05:20 WBC 3.2 L RBC 4.35 Hgb 13.8 L Hct 40 L MCV 92 MCH 32 H MCHC 35 RDW 14 Plt Count 148 L MPV 8.2 Neut % (Auto) 48.3 Lymph % (Auto) 28.6 [place] % (Auto) 19.0 H Eos % (Auto) 3.9 Baso % (Auto) 0.2 Absolute Neuts (auto) 1.5 Absolute Lymphs (auto) 0.9 L Absolute Monos (auto) 0.6 Absolute Eos (auto) 0.1 Absolute Basos (auto) 0 Absolute Nucleated RBC 0 Nucleated RBC % 0.1 Sodium 141 Potassium 3.6 Chloride 101 Carbon Dioxide 30 Anion Gap 10 BUN 18 Creatinine 1.00 Est GFR ( Amer) 103.5 Est GFR (Non-Af Amer) 85.5 BUN/Creatinine Ratio 18.0 Glucose 91 Calcium 8.6 Total Bilirubin 2.00 H AST 16 ALT 28 Alkaline Phosphatase 71 Total Protein 6.8 Albumin 3.8 Globulin 3.0 Albumin/Globulin Ratio 1.3 AXR images reviewed by me. Improving SBO. Assessment: Resolving SBO; ventral hernia; metastatic colon ca. on chemo. Now r/o PE. No surgical intervention warranted. Plan: As per Dr. Vazquez. Will follow.
[2018-02-11] MEDS ORDERED: Iohexol 350* (CONTRAST) 500 ML MDV IV ONE (10:52)
--- NOTE | 2018-02-11 11:10 | RAD ---
INDICATION: Hypoxia and tachycardia. COMPARISON: Correlation is made with a prior PET/CT study from December 18, 2017. TECHNIQUE: A CT angiogram of the chest was performed with intravenous following intravenous injection of 85 ml of Omnipaque 350 nonionic contrast. Contiguous axial sections were obtained from the lung apices through the lung bases. Images were reconstructed in the coronal and sagittal planes. FINDINGS: PULMONARY ARTERIES: There are intraluminal filling defects in both mainstem pulmonary arteries, right interlobar artery, right middle lobe segmental arteries and several bilateral lower lobe basilar segmental arteries consistent with multiple pulmonary emboli. HEART: The heart is within normal limits in size. No pericardial effusion is present. There is a right ventricular strain pattern with slight deviation of the ventricular septum toward the left ventricle due to the large number of pulmonary emboli. THORACIC AORTA: There is homogeneous opacification of the thoracic aorta. LUNGS: There is mild prominence of the interstitial markings. No focal infiltrate or pleural effusion is seen. MEDIASTINUM: No significant enlarged mediastinal or hilar lymph nodes are seen. ABDOMEN: Images of the upper abdomen demonstrate a nasogastric tube in place. The catheter tip is in the region of the antrum of the stomach. There is diffuse fatty infiltration of the liver. BONES: No significant focal osseous abnormality is seen. The results of this exam were discussed with the referring clinician. IMPRESSION: MULTIPLE BILATERAL PULMONARY EMBOLI WITH A RELATIVELY LARGE EMBOLIC LOAD AND RIGHT VENTRICULAR STRAIN PATTERN NOTED.
[2018-02-11] MEDS: Enoxaparin(*) 150 MG/ML 1 ML SYRINGE SUBCUT SCH ×2 (11:57→23:56)
[2018-02-11] MEDS: fentaNYL PATCH 50 MCG/HR TRANSDERM SCH (19:51)
[2018-02-12] MEDS: Ondansetron INJ* 2 MG/ML VIAL IV PRN ×4 (00:02→21:30)
[2018-02-12] MEDS: HYDROmorphone INJ1* 1 MG/ML SYRINGE IV PRN ×5 (00:02→21:29)
[2018-02-12 06:30] LABS: Hematocrit 36 % (42-52); Hemoglobin 12.1 g/dl (14.0-18.0); Mean Corpuscular HGB Conc 34 g/dl (31-36); Mean Corpuscular Hemoglobin 32 pg (27-31); Mean Corpuscular Volume 92 fL (80-94); Platelet Count 116 10^3/ul (150-450); Red Blood Count 3.84 10^6/ul (4.00-5.40); Red Cell Distribution Width 14 % (10.5-15); White Blood Count 4.5 10^3/ul (3.5-10.8)
[2018-02-12 06:43] LABS: EGFR Non-African American 113.9 (>60)
[2018-02-12 07:04] LABS: ABS Basophils 0 10^3/ul (0-0.2); ABS Neutrophils 1.4 10^3/ul (1.5-7.7); ABS Neutrophils 2.3 10^3/ul (1.5-7.7); Monocytes % 17 % (0-7)
[2018-02-12] MEDS: fentaNYL Patch Check Q Shift 1 NOTE FOLLOW UP SCH (07:24)
[2018-02-12] MEDS: Pantoprazole IV* 40 MG IV SCH (07:45)
[2018-02-12] MEDS: Nicotine PATCH 21 MG/24 HR* PATCH TRANSDERM SCH (07:46)
[2018-02-12] MEDS: NS 0.9% 1000 ML* 1,000 ML IV SCH (07:51)
--- NOTE | 2018-02-12 08:17 | RAD ---
Indication: Small bowel obstruction follow-up. Comparison: February 11, 2018 Technique: Supine and upright views of the abdomen. Report: Negative for free air beneath the diaphragm. Tip of nasogastric tube at level of gastric pylorus without change. Mild interval decrease in magnitude of dilatation small bowel at the LEFT upper quadrant and mid abdomen. Few air-fluid levels noted. RIGHT abdomen bowel anastomosis surgical clips visualized. No suspicious calcifications or mass effect. IMPRESSION: #. Probable mild interval improvement in magnitude of small bowel obstruction.
--- NOTE | 2018-02-12 08:45 | PN ---
Progress Note - Progress Note Date of Service: 02/12/18 SOAP: Subjective: wants to eat. still passing flatus. no pain right now. no SOB (despite large PEs) Objective: Vital Signs Temp Pulse Resp BP Pulse Ox 98.4 F 111 18 143/79 98 02/12/18 04:20 02/12/18 04:20 02/12/18 08:10 02/12/18 04:20 02/12/18 04:20 sitting up in nad perr eomi ngt in place CTA tachycardic distended, nontender, no bowel sounds no le edema left chest wall port intact A+O x 3 Laboratory Results - last 24 hr 02/12/18 02/12/18 06:00 06:00 WBC 4.5 RBC 3.84 L Hgb 12.1 L Hct 36 L MCV 92 MCH 32 H MCHC 34 RDW 14 Plt Count 116 L MPV 8.0 Neut % (Auto) Not Reportable Lymph % (Auto) Not Reportable [place] % (Auto) Not Reportable Eos % (Auto) Not Reportable Baso % (Auto) Not Reportable Absolute Neuts (auto) 2.3 Absolute Lymphs (auto) Not Reportable Absolute Monos (auto) Not Reportable Absolute Eos (auto) Not Reportable Absolute Basos (auto) Not Reportable Absolute Nucleated RBC Not Reportable Immature Gran % 16 H Neutrophils % 31 L Band Neutrophils % 15 H Lymphocytes % 32 Reactive Lymphs % 1 Monocytes % 17 H Eosinophils % 3 Basophils % 0 Metamyelocytes % 1 Nucleated RBC % Not Reportable Abs Neuts (Manual) 1.4 L Abs Lymphs (Manual) 1.4 Abs Monocytes (Manual) 0.8 Absolute Eos (Manual) 0.1 Abs Basophils (Manual) 0 Normal RBC Morphology Normal Sodium 142 Potassium 3.7 Chloride 109 Carbon Dioxide 26 Anion Gap 7 BUN 14 Creatinine 0.78 Est GFR ( Amer) 137.9 Est GFR (Non-Af Amer) 113.9 BUN/Creatinine Ratio 17.9 Glucose 86 Calcium 8.1 L Magnesium 2.1 Total Bilirubin 1.50 H AST 14 ALT 22 Alkaline Phosphatase 74 Total Protein 6.1 L Albumin 3.3 Globulin 2.8 Albumin/Globulin Ratio 1.2 Device (Nicotine Mouth Piece*) 1 each INH .USE WITH NICOTROL PRN PRN Reason: CRAVING Enoxaparin Sodium (Lovenox(*)) 120 mg SUBCUT Q12H [facility] Last Admin: 02/11/18 23:56 Dose: 120 mg Fentanyl (Duragesic Patch 50 Mcg/Hr*) 50 mcg TRANSDERM Q72H [facility] Last Admin: 02/11/18 19:51 Dose: 50 mcg Hydromorphone HCl (Dilaudid Inj1s*) 2 mg IV Q4H PRN PRN Reason: PAIN Last Admin: 02/12/18 08:10 Dose: 2 mg Sodium Chloride (Ns 0.9% 1000 Ml*) 1,000 mls @ 150 mls/hr IV PER RATE [facility] Last Admin: 02/12/18 07:51 Dose: 150 mls/hr Nicotine (Nicotine Inhaler*) 10 mg INH Q2H PRN PRN Reason: CRAVING Nicotine (Nicotine Patch 21 Mg/24 Hr*) 1 patch TRANSDERM DAILY@0800 [facility] Last Admin: 02/12/18 07:46 Dose: 1 patch Ondansetron HCl (Zofran Inj*) 4 mg IV Q4H PRN PRN Reason: NAUSEA Last Admin: 02/12/18 00:02 Dose: 4 mg Pantoprazole Sodium (Protonix Iv*) 40 mg IV DAILY [facility] Last Admin: 02/12/18 07:45 Dose: 40 mg Pharmacy Profile Note (Fentanyl Patch Check Q Shift) 1 note FOLLOW UP 0700, 1900 [facility] Last Admin: 02/12/18 07:24 Dose: 1 note Phenol/Menthol (Chloroseptic Throat [place]*) 1 spray MT TID PRN PRN Reason: SORE THROAT Assessment: 32 yo M w metastatic CRC and ventral hernia admitted with SBO, now appears to be improving with bowel rest and suction. course complicated by bilateral PEs, which I suspect he may have had on admission given his tachycardia. Plan: SBO: cont conservative measures -start TPN -cont low wall suction -surgery following -cont fentanyl patch and dilaudid pancytopenia: -chemotherapy related, today day 11, watch platelets with anticoagulation PE: full dose lovenox BID, likely x 1 mth then can consider xeralto full code
[2018-02-12] MEDS: Enoxaparin(*) 150 MG/ML 1 ML SYRINGE SUBCUT SCH (11:55)
[2018-02-12] MEDS: Phenol 1.4% Spray* 177 ML BTL MT PRN ×2 (15:46→21:53)
[2018-02-12] MEDS ORDERED: TPN* 24 HR with Dextrose 50% Water* 500 ML, Amino Acid Infusion 10%* 850 ML, Sterile Wa... CENTR SCH ×12 (17:00)
[2018-02-13] MEDS: Enoxaparin(*) 150 MG/ML 1 ML SYRINGE SUBCUT SCH ×3 (00:33→23:52)
[2018-02-13] MEDS: Ondansetron INJ* 2 MG/ML VIAL IV PRN ×6 (01:47→23:47)
[2018-02-13] MEDS: Phenol 1.4% Spray* 177 ML BTL MT PRN ×2 (01:47→07:39)
[2018-02-13] MEDS: HYDROmorphone INJ1* 1 MG/ML SYRINGE IV PRN ×6 (01:49→23:47)
[2018-02-13] MEDS: fentaNYL Patch Check Q Shift 1 NOTE FOLLOW UP SCH ×3 (03:24→18:57)
[2018-02-13 06:58] LABS: ABS Basophils 0 10^3/ul (0-0.2); ABS Eosinophils 0.3 10^3/ul (0-0.6); ABS Lymphocytes 1.5 10^3/ul (1.0-4.8); ABS Monocytes 1.1 10^3/ul (0-0.8); ABS Neutrophils 4.1 10^3/ul (1.5-7.7); ABS Nucleated RBC 0 10^3/ul; Eosinophil % 4.3 % (0-6); Hematocrit 38 % (42-52); Lymphocyte % 20.9 % (25-47); Mean Corpuscular HGB Conc 35 g/dl (31-36); Mean Corpuscular Hemoglobin 32 pg (27-31); Mean Corpuscular Volume 92 fL (80-94); Mean Platelet Volume 8.6 um3 (7.4-10.4); Nucleated Red Blood Cells % 0.2; Platelet Count 119 10^3/ul (150-450); Red Blood Count 4.11 10^6/ul (4.00-5.40); Red Cell Distribution Width 14 % (10.5-15)
[2018-02-13 07:43] LABS: EGFR Non-African American 145.8 (>60)
--- NOTE | 2018-02-13 09:07 | RAD ---
Indication: Reevaluate small bowel obstruction. Stage IV colon cancer. Comparison: February 12, 2018 Technique: Supine view of the abdomen. Report: Tip of nasogastric tube at level of gastric pylorus without change. Significant interval increase in length and dilatation of small bowel loops with small bowel loop in the RIGHT abdomen measuring up to 5.8 cm diameter. RIGHT bowel anastomosis staple line corresponding with RIGHT hemicolectomy. Unremarkable soft tissue contours. IMPRESSION: #. Interval worsening of small bowel obstruction.
[2018-02-13] MEDS: Pantoprazole IV* 40 MG IV SCH (10:29)
[2018-02-13] MEDS: Nicotine PATCH 21 MG/24 HR* PATCH TRANSDERM SCH (10:29)
[2018-02-13] MEDS ORDERED: Dextrose 50% Syringe 50 ML* 25 GM/50 ML SYRINGE IV PUSH PRN (12:23)
[2018-02-13] MEDS: Insulin LISPRO* 1 UNITS UNIT SUBCUT SCH ×3 (13:56→21:08)
[2018-02-13] MEDS: TPN* 24 HR with Sodium Chloride Conc 23.4%* 100 MEQ, Potassium Chloride TPN 50 MEQ, Pot... CENT\\PICC SCH ×12 (17:30)
[2018-02-14] MEDS: Insulin LISPRO* 1 UNITS UNIT SUBCUT SCH ×6 (01:22→21:19)
[2018-02-14] MEDS: HYDROmorphone INJ1* 1 MG/ML SYRINGE IV PRN ×5 (04:06→21:11)
[2018-02-14] MEDS: Ondansetron INJ* 2 MG/ML VIAL IV PRN ×5 (04:06→21:11)
[2018-02-14] MEDS: fentaNYL Patch Check Q Shift 1 NOTE FOLLOW UP SCH ×2 (06:34→17:30)
[2018-02-14] MEDS: Phenol 1.4% Spray* 177 ML BTL MT PRN ×3 (08:55→23:58)
[2018-02-14] MEDS: Pantoprazole IV* 40 MG IV SCH (08:55)
[2018-02-14] MEDS: Nicotine PATCH 21 MG/24 HR* PATCH TRANSDERM SCH (08:56)
[2018-02-14 09:19] LABS: EGFR Non-African American 140.6 (>60)
[2018-02-14] MEDS: Enoxaparin(*) 150 MG/ML 1 ML SYRINGE SUBCUT SCH ×2 (12:14→23:54)
[2018-02-14] MEDS: TPN* 24 HR with Sodium Chloride Conc 23.4%* 100 MEQ, Potassium Chloride TPN 50 MEQ, Pot... CENT\\PICC SCH ×12 (17:03)
[2018-02-14] MEDS: fentaNYL PATCH 50 MCG/HR TRANSDERM SCH (17:26)
[2018-02-15] MEDS: HYDROmorphone INJ1* 1 MG/ML SYRINGE IV PRN ×6 (01:16→21:03)
[2018-02-15] MEDS: Ondansetron INJ* 2 MG/ML VIAL IV PRN ×6 (01:16→21:03)
[2018-02-15] MEDS: Insulin LISPRO* 1 UNITS UNIT SUBCUT SCH ×6 (01:34→22:50)
[2018-02-15] MEDS: fentaNYL Patch Check Q Shift 1 NOTE FOLLOW UP SCH ×2 (06:16→17:58)
--- NOTE | 2018-02-15 08:39 | RAD ---
INDICATION: Small bowel obstruction. COMPARISON: Appear seated is made with prior abdominal films from February 12, 2018 and February 13, 2018. TECHNIQUE: Supine and upright views of the abdomen were obtained. FINDINGS: There is a nasogastric tube present. The catheter tip is likely located in the region of the antrum of the stomach. There is moderate distention of multiple proximal and mid small bowel loops with air-fluid levels. There is a paucity of gas within the colon which is nondistended. No free intraperitoneal air is seen. IMPRESSION: SMALL BOWEL OBSTRUCTION, UNCHANGED.
[2018-02-15] MEDS: Nicotine PATCH 21 MG/24 HR* PATCH TRANSDERM SCH (09:09)
[2018-02-15] MEDS: Pantoprazole IV* 40 MG IV SCH (09:09)
[2018-02-15] MEDS: Enoxaparin(*) 150 MG/ML 1 ML SYRINGE SUBCUT SCH ×2 (11:43→23:50)
[2018-02-15] MEDS: TPN* 24 HR with Sodium Chloride Conc 23.4%* 100 MEQ, Potassium Chloride TPN 50 MEQ, Pot... CENT\\PICC SCH ×12 (17:12)
[2018-02-16] MEDS: Phenol 1.4% Spray* 177 ML BTL MT PRN ×4 (01:19→21:13)
[2018-02-16] MEDS: HYDROmorphone INJ1* 1 MG/ML SYRINGE IV PRN ×6 (01:22→21:05)
[2018-02-16] MEDS: Ondansetron INJ* 2 MG/ML VIAL IV PRN ×6 (01:22→21:05)
[2018-02-16] MEDS: Insulin LISPRO* 1 UNITS UNIT SUBCUT SCH ×6 (03:23→20:28)
[2018-02-16 06:03] LABS: Hematocrit 41 % (42-52); Hemoglobin 14.2 g/dl (14.0-18.0); Mean Corpuscular HGB Conc 35 g/dl (31-36); Mean Corpuscular Hemoglobin 32 pg (27-31); Mean Corpuscular Volume 92 fL (80-94); Mean Platelet Volume 9.6 um3 (7.4-10.4); Platelet Count 114 10^3/ul (150-450); Red Blood Count 4.49 10^6/ul (4.00-5.40); Red Cell Distribution Width 14 % (10.5-15); White Blood Count 10.6 10^3/ul (3.5-10.8)
[2018-02-16 06:21] LABS: EGFR Non-African American 131.3 (>60)
[2018-02-16 06:59] LABS: ABS Basophils 0 10^3/ul (0-0.2); ABS Eosinophils 0.4 10^3/ul (0-0.6); ABS Lymphocytes 2.7 10^3/ul (1.0-4.8); ABS Monocytes 1.7 10^3/ul (0-0.8); ABS Neutrophils 5.8 10^3/ul (1.5-7.7); ABS Nucleated RBC 0 10^3/ul; Eosinophil % 3.9 % (0-6); Lymphocyte % 25.2 % (25-47); Nucleated Red Blood Cells % 0.1
[2018-02-16] MEDS: fentaNYL Patch Check Q Shift 1 NOTE FOLLOW UP SCH ×2 (08:10→19:56)
[2018-02-16] MEDS ORDERED: Iohexol 300* (CONTRAST) 10 ML SDV IV ONE (08:29)
[2018-02-16] MEDS: Nicotine PATCH 21 MG/24 HR* PATCH TRANSDERM SCH (09:19)
[2018-02-16] MEDS: Pantoprazole IV* 40 MG IV SCH (09:19)
[2018-02-16] MEDS: Enoxaparin(*) 150 MG/ML 1 ML SYRINGE SUBCUT SCH (11:06)
--- NOTE | 2018-02-16 11:55 | RAD ---
INDICATION: Small bowel obstruction, colon cancer. COMPARISON: Correlation is made with a prior CT of the abdomen and pelvis from February 08, 2018 and a prior x-ray study of the abdomen from February 15, 2018. TECHNIQUE: A CT scan of the abdomen and pelvis was performed with intravenous and without oral contrast following intravenous injection of 150 ml of Omnipaque 300 nonionic contrast. Contiguous axial sections were obtained from the lung bases through the symphysis pubis. Images were reconstructed in the coronal and sagittal planes. FINDINGS: LUNG BASES: The lung bases are clear. No pleural effusion is present. LIVER: The liver is mildly enlarged. The liver is decreased in attenuation consistent with fatty infiltration. No significant focal abnormality is seen. GALLBLADDER: No calcified gallstones are seen. BILE DUCTS: No intra or extrahepatic ductal distention is seen. SPLEEN: The spleen is mildly enlarged without focal abnormality. PANCREAS: The pancreas is normal in size. No ductal distention or calcifications are seen. ADRENAL GLANDS: The adrenal glands are normal in size. KIDNEYS: The kidneys are normal in size. No renal calculi or hydronephrosis is seen. No significant focal renal abnormality is seen. AORTA: The aorta is normal in caliber without significant calcific plaque. LYMPH NODES: There are enlarged retroperitoneal lymph nodes present throughout the abdomen. These are most confluent in the upper portion of the abdomen measuring up to 2.9 cm in transverse dimension and appear unchanged. There are also enlarged lymph nodes in the left external iliac chain measuring up to 2.5 cm in diameter. There are mildly prominent mesenteric lymph nodes in the anterior mid abdomen measuring up to 1.2 cm in transverse dimension which are unchanged. BOWEL: The distal portion of a nasogastric tube is noted within the antrum of the stomach. The stomach is nondistended. There is moderate distention of multiple mid small bowel loops. The proximal and distal small bowel is nondistended. There is a large anterior abdominal wall hernia present in the midline containing both distended and nondistended small bowel loops. There is also a second hernia present in the midline inferior to the larger hernia in the periumbilical region containing a slightly distended loop of small bowel. The patient appears to be status post right hemicolectomy. The colon is nondistended. There is mild to moderate descending and sigmoid diverticulosis. There appears to be an inflamed diverticulum present in the mid descending colon with adjacent pericolonic interstitial stranding suggesting diverticulitis. No abscess is seen. This appears to be a new finding from the prior study. PELVIC ORGANS: No bladder wall thickening is seen. The prostate gland does not appear enlarged. PERITONEUM: No free intraperitoneal air or fluid is seen. BONES: No significant focal osseous abnormality is seen. The results of this exam were discussed with the referring clinician. IMPRESSION: 1. FINDINGS SUGGESTIVE OF MILD DIVERTICULITIS INVOLVING THE MID DESCENDING COLON, NEW. 2. PARTIAL SMALL BOWEL OBSTRUCTION SECONDARY TO ANTERIOR ABDOMINAL WALL HERNIAS APPEARS SLIGHTLY IMPROVED. 3. ENLARGED RETROPERITONEAL LYMPH NODES IN THE ABDOMEN AND PELVIS, UNCHANGED. 4. MILD HEPATOSPLENOMEGALY AND HEPATIC STEATOSIS, UNCHANGED.
--- NOTE | 2018-02-16 14:11 | PN ---
Progress Note - Progress Note Date of Service: 02/16/18 SOAP: Subjective: [He has passed liquid stool again last night. Nausea is mild, no vomiting. Mild abd pain which is controlled. NG tube still in place. No SOB.] Objective: [ Laboratory Results - last 24 hr 02/15/18 02/15/18 02/16/18 17:21 21:03 01:21 WBC RBC Hgb Hct MCV MCH MCHC RDW Plt Count MPV Neut % (Auto) Lymph % (Auto) Gates % (Auto) Eos % (Auto) Baso % (Auto) Absolute Neuts (auto) Absolute Lymphs (auto) Absolute Monos (auto) Absolute Eos (auto) Absolute Basos (auto) Absolute Nucleated RBC Nucleated RBC % Sodium Potassium Chloride Carbon Dioxide Anion Gap BUN Creatinine Est GFR ( Amer) Est GFR (Non-Af Amer) BUN/Creatinine Ratio Glucose POC Glucose (mg/dL) 129 H 113 H 124 H Calcium Phosphorus Magnesium Total Bilirubin AST ALT Alkaline Phosphatase Total Protein Albumin Globulin Albumin/Globulin Ratio Prealbumin Triglycerides Cholesterol 02/16/18 02/16/18 02/16/18 05:20 05:30 05:30 WBC 10.6 RBC 4.49 Hgb 14.2 Hct 41 L MCV 92 MCH 32 H MCHC 35 RDW 14 Plt Count 114 L MPV 9.6 Neut % (Auto) 54.8 Lymph % (Auto) 25.2 Gates % (Auto) 15.6 H Eos % (Auto) 3.9 Baso % (Auto) 0.5 Absolute Neuts (auto) 5.8 Absolute Lymphs (auto) 2.7 Absolute Monos (auto) 1.7 H Absolute Eos (auto) 0.4 Absolute Basos (auto) 0 Absolute Nucleated RBC 0 Nucleated RBC % 0.1 Sodium 142 Potassium 3.7 Chloride 107 Carbon Dioxide 24 Anion Gap 11 BUN 13 Creatinine 0.69 Est GFR ( Amer) 158.8 Est GFR (Non-Af Amer) 131.3 BUN/Creatinine Ratio 18.8 Glucose 94 POC Glucose (mg/dL) 92 Calcium 8.9 Phosphorus 4.2 Magnesium 2.1 Total Bilirubin 0.00 L AST 13 ALT 18 Alkaline Phosphatase 354 H Total Protein 7.0 Albumin 3.5 Globulin 3.5 Albumin/Globulin Ratio 1.0 Prealbumin 9 L Triglycerides 258 Cholesterol 189 Device (Nicotine Mouth Piece*) 1 each INH .USE WITH NICOTROL PRN PRN Reason: CRAVING Dextrose (D50w Syringe 50 Ml*) 12.5 gm IV PUSH .FOR FS < 60 - SS PRN PRN Reason: FS < 60 Enoxaparin Sodium (Lovenox(*)) 120 mg SUBCUT Q12H [facility] Last Admin: 02/16/18 11:06 Dose: 120 mg Hydromorphone HCl (Dilaudid Inj1s*) 2 mg IV Q4H PRN PRN Reason: PAIN Last Admin: 02/16/18 13:31 Dose: 2 mg Sodium Chloride 100 meq/Potassium Chloride 50 meq/Potassium Phosphate 15 mmole/ Calcium Gluconate 15 meq/Magnesium Sulfate 10 meq/Multivitamins 10 ml/ Trace Metals 1 ml/ Dextrose 1,000 ml / Amino Acids 850 ml/ Sterile Water 150 ml/ Fat Emulsion Intravenous 250 ml/ Nutrition (Parenteral) 2,350.721 mls @ 97.947 mls/ hr CENT\PICC 1700 [facility] Last Admin: 02/15/18 17:12 Dose: 97.947 mls/hr Insulin Human Lispro (Humalog*) 0 units SUBCUT Q4HR [facility]; Protocol Last Admin: 02/16/18 11:15 Dose: Not Given Nicotine (Nicotine Inhaler*) 10 mg INH Q2H PRN PRN Reason: CRAVING Nicotine (Nicotine Patch 21 Mg/24 Hr*) 1 patch TRANSDERM DAILY@0800 [facility] Last Admin: 02/16/18 09:19 Dose: 1 patch Ondansetron HCl (Zofran Inj*) 4 mg IV Q4H PRN PRN Reason: NAUSEA Last Admin: 02/16/18 13:31 Dose: 4 mg Pantoprazole Sodium (Protonix Iv*) 40 mg IV DAILY [facility] Last Admin: 02/16/18 09:19 Dose: 40 mg Pharmacy Profile Note (Fentanyl Patch Check Q Shift) 1 note FOLLOW UP 0700, 1900 [facility] Last Admin: 02/16/18 08:10 Dose: 1 note Phenol/Menthol (Chloroseptic Throat [place]*) 1 spray MT TID PRN PRN Reason: SORE THROAT Last Admin: 02/16/18 11:05 Dose: 1 spray Vital Signs: Temp Pulse Resp BP Pulse Ox 97.3 F 95 16 115/72 97 02/16/18 11:54 02/16/18 11:54 02/16/18 13:31 02/16/18 11:54 02/16/18 11:54 Exam: Gen: Relatively well appearing, in NAD. NG tube in place. HEENT: NGT in place CV: RRR, mildly tachy, no m/r/g Resp: CTA Abd: soft, hernia site mildly TTP, normoactive bowel sounds present in all 4 quadrants Ext: no edema] Assessment: 32 yo male with metastatic CRC on palliative FOLFIRI s/p C2 02/02/18. Admitted with SBO. Large bilateral PEs were recognized and he is now anticoagulated on full dose Lovenox. NGT remains in place with partial resolution of obstruction on reimaging. Plan: 1. SBO - NGT remains in place, day 8 - repeat CT today shows partial resolution of obstruction - requested that surgery re-evaluate today and advise whether we should leave NG in place or attempt to pull it - incidental finding of mild diverticulitis noted on CT - he has no associated abd pain or fevers that correspond with this radiologic finding - will no initiate abx at this time as he is no longer neutropenic - cont TPN 2. PE - large burden of bilateral PEs with RV strain - little associated symptoms - cont full dose Lovenox 3. Metastatic CRC - palliative chemotherapy with FOLFIRI 4. Chronic pain - due to ventral hernia - under the care of pain management 5. Obesity - BMI 37 Dispo: cont inpatient stay
--- NOTE | 2018-02-16 17:21 | PN ---
Progress Note - Progress Note Date of Service: 02/16/18 Note: Surgery Progress: S: states that he is having less abdominal pain overall. Denies N/V. Passing both stool and flatus. Drinking ice water fairly liberally (he estimates 4 of the 16 oz cups per day). O: Vital Signs - 8 hr 02/16/18 02/16/18 02/16/18 09:20 10:05 11:54 Temperature 97.3 F Pulse Rate 95 Respiratory 16 16 16 Rate Blood Pressure 115/72 (mmHg) O2 Sat by Pulse 97 Oximetry 02/16/18 02/16/18 02/16/18 13:31 14:20 15:44 Temperature Pulse Rate Respiratory 16 16 Rate Blood Pressure (mmHg) O2 Sat by Pulse 97 Oximetry Intake and Output Last 24 Hours 02/14/18 02/15/18 02/16/18 02/17/18 06:59 06:59 06:59 06:59 Intake Total 2971 240 6920 Output Total 1800 3720 4780 2600 Balance 1171 -3480 2140 -2600 Weight 255 lb 11.2 oz 254 lb 4.8 oz 251 lb 9.6 oz Intake: IV Fluids 20 NS 20 TPN/PPN 2951 4520 Oral 0 240 2400 Output: NG Tube Drainage Amount 1800 1470 4180 2600 Urine 2250 600 Other: Estimated Void Medium Small Large # Bowel Movements 1 1 0 Estimated Stool Amount Medium Large # Voids 1 1 1 Gen: NAD Heart: reg Lungs: clear Abd: obese; mildly distended; BS present and of fairly normal quality. He is mild to moderately tender over the midline, which sounds consistent with his previous exams. He is also tender over the Left mid abdomen, fairly localized. CT: INDICATION: Small bowel obstruction, colon cancer. COMPARISON: Correlation is made with a prior CT of the abdomen and pelvis from February 08, 2018 and a prior x-ray study of the abdomen from February 15, 2018. TECHNIQUE: A CT scan of the abdomen and pelvis was performed with intravenous and without oral contrast following intravenous injection of 150 ml of Omnipaque 300 nonionic contrast. Contiguous axial sections were obtained from the lung bases through the symphysis pubis. Images were reconstructed in the coronal and sagittal planes. FINDINGS: LUNG BASES: The lung bases are clear. No pleural effusion is present. LIVER: The liver is mildly enlarged. The liver is decreased in attenuation consistent with fatty infiltration. No significant focal abnormality is seen. GALLBLADDER: No calcified gallstones are seen. BILE DUCTS: No intra or extrahepatic ductal distention is seen. SPLEEN: The spleen is mildly enlarged without focal abnormality. PANCREAS: The pancreas is normal in size. No ductal distention or calcifications are seen. ADRENAL GLANDS: The adrenal glands are normal in size. KIDNEYS: The kidneys are normal in size. No renal calculi or hydronephrosis is seen. No significant focal renal abnormality is seen. AORTA: The aorta is normal in caliber without significant calcific plaque. LYMPH NODES: There are enlarged retroperitoneal lymph nodes present throughout the abdomen. These are most confluent in the upper portion of the abdomen measuring up to 2.9 cm in transverse dimension and appear unchanged. There are also enlarged lymph nodes in the left external iliac chain measuring up to 2.5 cm in diameter. There are mildly prominent mesenteric lymph nodes in the anterior mid abdomen measuring up to 1.2 cm in transverse dimension which are unchanged. BOWEL: The distal portion of a nasogastric tube is noted within the antrum of the stomach. The stomach is nondistended. There is moderate distention of multiple mid small bowel loops. The proximal and distal small bowel is nondistended. There is a large anterior abdominal wall hernia present in the midline containing both distended and nondistended small bowel loops. There is also a second hernia present in the midline inferior to the larger hernia in the periumbilical region containing a slightly distended loop of small bowel. The patient appears to be status post right hemicolectomy. The colon is nondistended. There is mild to moderate descending and sigmoid diverticulosis. There appears to be an inflamed diverticulum present in the mid descending colon with adjacent pericolonic interstitial stranding suggesting diverticulitis. No abscess is seen. This appears to be a new finding from the prior study. A: SBO/ventral hernia/mult PE P: discussed w/ patient and SHAD Lee. Will give him a trial of clamping the NG overnight.
[2018-02-16] MEDS: TPN* 24 HR with Sodium Chloride Conc 23.4%* 100 MEQ, Potassium Chloride TPN 50 MEQ, Pot... CENT\\PICC SCH ×12 (17:22)
[2018-02-17] MEDS: Phenol 1.4% Spray* 177 ML BTL MT PRN (01:12)
[2018-02-17] MEDS: Enoxaparin(*) 150 MG/ML 1 ML SYRINGE SUBCUT SCH ×3 (01:13→22:50)
[2018-02-17] MEDS: HYDROmorphone INJ1* 1 MG/ML SYRINGE IV PRN ×6 (01:13→22:49)
[2018-02-17] MEDS: Ondansetron INJ* 2 MG/ML VIAL IV PRN ×6 (01:13→22:48)
[2018-02-17] MEDS: Insulin LISPRO* 1 UNITS UNIT SUBCUT SCH ×6 (02:32→23:00)
[2018-02-17 06:25] LABS: EGFR Non-African American 145.8 (>60)
[2018-02-17] MEDS: fentaNYL Patch Check Q Shift 1 NOTE FOLLOW UP SCH ×2 (06:58→18:10)
--- NOTE | 2018-02-17 09:15 | PN ---
Progress Note - Progress Note Date of Service: 02/17/18 Note: Surgery Progress: S: continues to improve: less pain overnight; only slight nausea; no vomiting. Cont to pass flatus and had 2 add'l BMs. Only had 2 16 oz cups of ice water overnight. O: Vital Signs - 8 hr 02/17/18 02/17/18 02/17/18 01:13 01:26 02:34 Temperature 98.1 F Pulse Rate 102 Respiratory 22 16 18 Rate Blood Pressure 132/78 (mmHg) O2 Sat by Pulse 98 Oximetry 02/17/18 02/17/18 05:27 05:33 Temperature 97.5 F Pulse Rate 100 Respiratory 18 18 Rate Blood Pressure 141/91 (mmHg) O2 Sat by Pulse 98 Oximetry Intake and Output Last 24 Hours 02/15/18 02/16/18 02/17/18 02/18/18 06:59 06:59 06:59 06:59 Intake Total 240 6920 1991 Output Total 3720 4780 3850 Balance -3480 2140 -1859 Weight 254 lb 4.8 oz 251 lb 9.6 oz 256 lb 9.6 oz Intake: TPN/PPN 4520 1151 Oral 240 2400 840 Output: NG Tube Drainage Amount 1470 4180 2600 Urine 2250 600 1250 Other: Estimated Void Small Large # Bowel Movements 1 0 0 Estimated Stool Amount Large # Voids 1 1 0 Heart: reg Lungs: clear ant Abd: less distended; +BS; soft; mild central tenderness; hernia feels entirely reducible; mild tenderness Left side, less than last pm. NG was returned to suction during my exam with no appreciable residual, therefore, pulled. A: SBO/ventral hernia, improving ? Diverticulits (seems to be improving) P: d/c NG (done); clears w/ slow advancement of diet; may need to maintain liquid diet w/ supplements; will cont to follow
[2018-02-17] MEDS: Nicotine PATCH 21 MG/24 HR* PATCH TRANSDERM SCH (09:37)
[2018-02-17] MEDS: Pantoprazole IV* 40 MG IV SCH (09:39)
[2018-02-17] MEDS: TPN* 24 HR with Sodium Chloride Conc 23.4%* 100 MEQ, Potassium Chloride TPN 50 MEQ, Pot... CENT\\PICC SCH ×12 (18:02)
[2018-02-18] MEDS: HYDROmorphone INJ1* 1 MG/ML SYRINGE IV PRN ×2 (02:38→06:21)
[2018-02-18] MEDS: Ondansetron INJ* 2 MG/ML VIAL IV PRN ×4 (02:38→15:32)
[2018-02-18] MEDS: Insulin LISPRO* 1 UNITS UNIT SUBCUT SCH ×4 (03:58→13:21)
[2018-02-18] MEDS: fentaNYL Patch Check Q Shift 1 NOTE FOLLOW UP SCH (06:25)
[2018-02-18] MEDS: Nicotine PATCH 21 MG/24 HR* PATCH TRANSDERM SCH (09:56)
[2018-02-18] MEDS: Pantoprazole IV* 40 MG IV SCH (09:56)
[2018-02-18] MEDS: Enoxaparin(*) 150 MG/ML 1 ML SYRINGE SUBCUT SCH (10:53)
[2018-02-18] MEDS: HYDROmorphone TAB* 4 MG PO PRN ×2 (11:14→15:16)
[2018-02-18 14:41] VITALS: BP 129/85
--- NOTE | 2018-04-02 01:52 | DS ---
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 He had received most of his prior therapy in [place] and in [place] and was initially seen here in consultation on 01/05/18. He has had previous hemicolectomy in July of 2016 with a subsequent large ventral hernia. He had received chemotherapy for metastatic disease most re cently around May of this year, then following consultation with us resumed it with evidence for further progression approximately 3 weeks prior to this hospitalization. He was on FOLFIRI without Avastin. Most recent chemotherapy was approximately 1 week prior to this hospitalization. He presen maria elena to the emergency room with abdominal pain, which was worse than his normal along with nausea and vomiting and was found on CT scan to have small bowel obstruction with a transition point at the leve l of the ventral hernia. Retroperitoneal adenopathy was stable. He was brought into the hospital and NG tube was placed with copious bilious drainage. He was given narcotics for pain. He was made n.p .o. He was given extra IV fluids and surgical consultation was obtained. It should be noted that he previously had been seen on one occasion in the pain clinic in [place], but decision was made prior to this hospitalization for him to follow up with us as he was on no long acting narcotics and for s ubsequent narcotics to be through our office. He developed worsening shortness of breath and some ch est discomfort several days into the hospitalization and a CTA of the chest was performed on 02/11/18 . This revealed evidence for pulmonary emboli. There were intraluminal filling defects in both the mainstem pulmonary arteries, the right interlobar artery, the right middle lobe segmental arteries an d several bilateral lower lobe segmental arteries. He was placed on Lovenox and maintained on Loveno x throughout the remainder of the hospitalization. He did start having some small bowel movements fa irly early on in the hospitalization, but remained with severe abdominal pain along with nausea and v omiting. As the hospital course went on, he was given TPN because of the prolonged nature of his sma ll bowel obstruction. He had some modest neutropenia during the hospitalization, lowest white count being at 3200 with adequate neutrophils. Lowest ANC was 1500. By the time of discharge, his abdomin al pain was significantly improved and he was able to be back on a diet consisting of more than just clear liquids. He was able to be discharged to home on 02/18/18 on narcotics both long acting and sh ort acting along with his usual medications. DISCHARGE DIAGNOSES: 1. Small bowel obstruction secondary to a ventral hernia. 2. Metastatic colon cancer. 3. Chronic pain syndrome. 4. Pulmonary emboli. 5. Ram syndrome. MEDICATIONS AT THE TIME OF DISCHARGE: Included: 1. Lovenox 120 mg subcutaneously q.12 hours. 2. Hydromorphone 4 mg q.4 hours p.r.n. pain. 3. Zofran 4 mg q.6 hours p.r.n. . 4. Fentanyl patch 50 mcg q.72 hours. The patient was asked to stop his bowel meds along with stopping his oxycodone. [id number]/[facility] #: [id number]
== END 2018-02-18 16:15 | disposition home or self-care (01) | DRG 254 ==
LOC: ED 13:01 → UNDOADMIN 16:27 → MED 16:27 → UNDODISIN 02-18 16:15
PROVIDERS: ADMIT Internal Medicine; ATTEND Internal Medicine Hematology & Oncology
PROC: 0D9670Z Drainage of Stomach with Drainage Device, Via Natural or Artificial Opening (ICD-10-PCS; 2018-02-08)
PROC: 0D20XUZ Change Feeding Device in Upper Intestinal Tract, External Approach (ICD-10-PCS; 2018-02-10)
PROC: 3E0336Z Introduction of Nutritional Substance into Peripheral Vein, Percutaneous Approach (ICD-10-PCS; principal; 2018-02-14)
DX: K43.6 Other and unspecified ventral hernia with obstruction, without gangrene (principal); I26.99 Other pulmonary embolism without acute cor pulmonale; D61.810 Antineoplastic chemotherapy induced pancytopenia; K56.50 Intestinal adhesions [bands], unspecified as to partial versus complete obstruction; C19 Malignant neoplasm of rectosigmoid junction; C79.9 Secondary malignant neoplasm of unspecified site; K57.92 Diverticulitis of intestine, part unspecified, without perforation or abscess without bleeding; F17.210 Nicotine dependence, cigarettes, uncomplicated; R00.0 Tachycardia, unspecified; J45.909 Unspecified asthma, uncomplicated; R59.0 Localized enlarged lymph nodes; T45.1X5A Adverse effect of antineoplastic and immunosuppressive drugs, initial encounter; F32.9 Major depressive disorder, single episode, unspecified; F41.9 Anxiety disorder, unspecified; R09.02 Hypoxemia; G89.29 Other chronic pain; E66.9 Obesity, unspecified; Z68.37 Body mass index [BMI] 37.0-37.9, adult; I25.2 Old myocardial infarction; Z80.0 Family history of malignant neoplasm of digestive organs; Z82.49 Family history of ischemic heart disease and other diseases of the circulatory system; Z90.49 Acquired absence of other specified parts of digestive tract; Z15.09 Genetic susceptibility to other malignant neoplasm; Z92.21 Personal history of antineoplastic chemotherapy; Z88.8 Allergy status to other drugs, medicaments and biological substances; Y92.009 Unspecified place in unspecified non-institutional (private) residence as the place of occurrence of the external cause
CPT/HCPCS: 36415; 71045; 71275; 74018; 74019; 74177; 80048; 80053; 81003; 81015; 82272; 82465; 83036; 83605; 83690; 83735; 84100; 84134; 84478; 85025; 85610; 86140; 93005; 99231; 99232; 99233; 99238; 99284; A9270-GY; J1170; J1642; J1644; J1650; J2405; J2997; J3480; Q9967

== ENCOUNTER 2018-03-19 08:15 | Emergency (ER) | payer OTHER ==
[2018-03-19 08:35] VITALS: BP 113/71
[2018-03-19] MEDS ORDERED: Penicillin VK TAB* 250 MG PO ONE (09:12)
--- NOTE | 2018-03-19 09:13 | UC ---
Dental HPI - HPI Summary HPI Summary: The patient is a 32-year-old male that presents here with the onset of a toothache and right facial swelling that started yesterday. He is currently undergoing chemotherapy for stage IV colon cancer. He is also on Lovenox for DVT and PE. He has had no fever. He denies any history of heart murmur. He has not a diabetic. - History of Current Complaint Chief Complaint: UCDentalProblem Stated Complaint: FACIAL SWELLING-CHEEK Time Seen by Provider: 03/19/18 08:57 Hx Obtained From: Patient Onset/Duration: Gradual Onset, Lasting Hours Severity: Mild Pain Intensity: 1 Pain Scale Used: 0-10 Numeric Aggravating Factor(s): Nothing Alleviating Factor(s): Nothing Related History: Previous Dental Care on Same Tooth, Swelling - Allergies/Home Medications Allergies/Adverse Reactions: Allergies Allergy/AdvReac Type Severity Reaction Status Date / Time prochlorperazine Allergy Shakes Verified 03/19/18 08:35 [From Compazine] PMH/Surg Hx/FS Hx/Imm Hx Previously Healthy: No Cardiovascular History: Deep Vein Thrombosis Respiratory History: Pulmonary Embolism Cancer History: Colorectal Cancer, Other - stomach cancer Other History Of: Negative For: HIV, Hepatitis B, Hepatitis C - Surgical History Surgical History: Yes Surgery Procedure, Year, and Place: tonsillectomy, adenoid removal, mole removal , screws in right hand. RIGHT COLON RESECTION AND ANASTOMOSIS - Family History Known Family History: Positive: Cardiac Disease - WPW in family, Hypertension, Other - Ram syndrome/colon CA - Social History Alcohol Use: None Substance Use Type: Marijuana, Other Substance Use Comment - Amount & Last Used: fentanyl patch Smoking Status (MU): Heavy Every Day Tobacco Smoker Type: Cigarettes Amount Used/How Often: 1/2 ppd Length of Time of Smoking/Using Tobacco: 19 YRS Household Exposure Type: Cigarettes - Immunization History Most Recent Influenza Vaccination: not this season Most Recent Tetanus Shot: 2010 Most Recent Pneumonia Vaccination: never Review of Systems All Other Systems Reviewed And Are Negative: Yes Constitutional: Positive: Negative Skin: Positive: Negative Eyes: Positive: Negative ENT: Positive: Dental Pain Respiratory: Positive: Negative Cardiovascular: Positive: Negative Gastrointestinal: Positive: Abdominal Pain - chronic Genitourinary: Positive: Negative Motor: Positive: Negative Neurovascular: Positive: Negative Musculoskeletal: Positive: Negative Neurological: Positive: Negative Psychological: Positive: Negative Physical Exam Triage Information Reviewed: Yes Appearance: Well-Appearing, No Pain Distress, Well-Nourished Vital Signs: Initial Vital Signs Temp 98.4 F 03/19/18 08:32 Pulse 100 03/19/18 08:32 Resp 18 03/19/18 08:32 BP 113/71 03/19/18 08:32 Pulse Ox 99 03/19/18 08:32 Vital Signs Reviewed: Yes Eyes: Positive: Conjunctiva Clear ENT: Positive: Hearing grossly normal, Dental tenderness, Uvula midline. Negative: Nasal congestion, Nasal drainage, Tonsillar swelling, Tonsillar exudate, Muffled voice Dental Exam: Other Neck: Positive: Supple, Nontender Respiratory: Positive: Lungs clear, Normal breath sounds, No respiratory distress Cardiovascular: Positive: RRR, No Murmur Abdomen Description: Positive: Other: - vental hernia/colostomy Neurological: Positive: Alert, Muscle Tone Normal Psychological Exam: Normal Skin Exam: Normal Dental Complaint Course/Dx - Differential Dx/Diagnosis Provider Diagnosis: Dental abscess Discharge - Sign-Out/Discharge Documenting (check all that apply): Patient Departure All imaging exams completed and their final reports reviewed: No Studies - Discharge Plan Condition: Stable Disposition: HOME Prescriptions: Penicillin VK 500 MG TAB(NF) [Penicillin VK 500 mg Tab] 500 mg PO QID #28 tab Patient Education Materials: Dental Abscess (ED) Referrals: Emily Boyd PA [Primary Care Provider] - Additional Instructions: TO ER IF NOT IMPROVED IN 24 HOURS You need to see a dentist - Billing Disposition and Condition Condition: STABLE Disposition: Home Images Head: 1 - swelling Dental: 1 - all teeth rotted/mos to gum line, swollen here
== END 2018-03-19 09:23 | disposition home or self-care (01) ==
LOC: UCCORT 08:15
DX: K04.7 Periapical abscess without sinus (principal); Z88.8 Allergy status to other drugs, medicaments and biological substances; F17.210 Nicotine dependence, cigarettes, uncomplicated
CPT/HCPCS: 99212; A9270-GY; G0463

== ENCOUNTER 2018-08-19 15:04 | Inpatient (IN) | payer OTHER ==
[2018-08-19] MEDS ORDERED: Ondansetron INJ* 2 MG/ML VIAL IV PRN (15:17)
[2018-08-19] MEDS ORDERED: Naloxone* 0.4 MG/ML 1 ML VIAL IV PUSH PRN (15:18)
[2018-08-19] MEDS ORDERED: HYDROmorphone PCA* 20 MG/20 ML PCA.SYRING PCA SCH (16:00)
[2018-08-19] MEDS: NS 0.9% 1000 ML** 1,000 ML IV SCH (16:07)
[2018-08-19] MEDS ORDERED: Hyoscyamine TAB* 0.125 MG PO PRN (16:11)
[2018-08-19] MEDS: Nicotine PATCH 21 MG/24 HR* PATCH TRANSDERM SCH (16:46)
[2018-08-19] MEDS: Clotrimazole TROCHE* 10 MG TROCHE PO SCH ×2 (16:54→21:32)
[2018-08-19] MEDS: Enoxaparin(*) 150 MG/ML 1 ML SYRINGE SUBCUT SCH (16:55)
[2018-08-19] MEDS ORDERED: fentaNYL PATCH 50 MCG/HR TRANSDERM SCH (17:00)
[2018-08-19] MEDS: fentaNYL Patch Check Q Shift 1 NOTE FOLLOW UP SCH (19:12)
[2018-08-19] MEDS ORDERED: FAMOTIDINE IV SLOW PU SCH ×2 (21:00)
[2018-08-19] MEDS ORDERED: Nicotine Patch Removal NOTE FOLLOW UP SCH (21:00)
[2018-08-19] MEDS: Famotidine IV* 10 MG/ML 2 ML (20 mg) SLOW PUSH SCH (21:32)
[2018-08-19] MEDS ORDERED: HYDROmorphone PCA *HIGH DOSE* 100 MG/20 ML PCA.SYRING PCA SCH (22:00)
[2018-08-20] MEDS: NS 0.9% 1000 ML** 1,000 ML IV SCH ×3 (01:54→22:09)
[2018-08-20] MEDS: Enoxaparin(*) 150 MG/ML 1 ML SYRINGE SUBCUT SCH ×2 (06:16→17:42)
[2018-08-20] MEDS: Clotrimazole TROCHE* 10 MG TROCHE PO SCH ×5 (06:20→22:09)
[2018-08-20] MEDS: fentaNYL Patch Check Q Shift 1 NOTE FOLLOW UP SCH ×2 (07:07→18:54)
[2018-08-20 08:22] LABS: Albumin 3.6 g/dL (3.2-5.2); Albumin/Globulin Ratio 1.4 (1-3); BUN/Creatinine Ratio 10.6 (8-20); Calcium 8.6 mg/dL (8.6-10.3); EGFR African American 124.1 (>60); EGFR Non-African American 102.6 (>60); Globulin 2.6 g/dL (2-4); Potassium 3.8 mmol/L (3.5-5.0); Total Bilirubin 0.6 mg/dL (0.2-1.0); Total Protein 6.2 g/dL (6.4-8.9)
[2018-08-20 08:23] LABS: ABS Basophils 0 10^3/ul (0-0.2); ABS Eosinophils 0.3 10^3/ul (0-0.6); ABS Lymphocytes 1.5 10^3/ul (1.0-4.8); ABS Monocytes 0.5 10^3/ul (0-0.8); ABS Neutrophils 5.4 10^3/ul (1.5-7.7); ABS Nucleated RBC 0 10^3/ul; Eosinophil % 3.3 %; Hematocrit 33 % (42-52); Hemoglobin 11.2 g/dL (14.0-18.0); Lymphocyte % 19.3 %; Mean Corpuscular HGB Conc 34 g/dL (31-36); Mean Corpuscular Hemoglobin 31 pg (27-31); Mean Corpuscular Volume 91 fL (80-94); Mean Platelet Volume 8.6 fL (7.4-10.4); Nucleated Red Blood Cells % 0; Platelet Count 217 10^3/uL (150-450); Red Blood Count 3.64 10^6 /uL (4.18-5.48); Red Cell Distribution Width 14 % (10.5-15); White Blood Count 7.8 10^3/uL (3.5-10.8)
[2018-08-20] MEDS ORDERED: Alteplase (CATHFLO)* 2 MG VIAL IV ONE ×2 (08:27→11:37)
[2018-08-20] MEDS: Nicotine PATCH 21 MG/24 HR* PATCH TRANSDERM SCH (08:38)
[2018-08-20] MEDS: Famotidine IV* 10 MG/ML 2 ML (20 mg) SLOW PUSH SCH ×2 (08:39→20:50)
--- NOTE | 2018-08-20 08:57 | PN ---
Progress Note - Progress Note Date of Service: 08/20/18 SOAP: Subjective: feels clearly better than yesterday. reports pain now 4/10. at baseline uses dilaudid 2 mg po q3 hrs at home for abdominal pain. passing "watery gas". dry cough x 24 hours. no fevers. Objective: Vital Signs Temp Pulse Resp BP Pulse Ox 98.2 F 92 20 95/49 95 08/20/18 03:26 08/20/18 06:51 08/20/18 07:54 08/20/18 03:34 08/20/18 07:54 lying flat in nad perr eomi +thrush dec bs RML relatively soft, easily reducible ventral hernia, minimal tenderness to palpation, hyperactive bowel sound no LE edema A+O x 3, nonfocal neurological exam various tattoos port clean Laboratory Results - last 24 hr 08/20/18 08/20/18 07:49 07:49 WBC 7.8 RBC 3.64 L Hgb 11.2 L Hct 33 L MCV 91 MCH 31 MCHC 34 RDW 14 Plt Count 217 MPV 8.6 Neut % (Auto) 70.0 Lymph % (Auto) 19.3 Benton % (Auto) 7.0 Eos % (Auto) 3.3 Baso % (Auto) 0.4 Absolute Neuts (auto) 5.4 Absolute Lymphs (auto) 1.5 Absolute Monos (auto) 0.5 Absolute Eos (auto) 0.3 Absolute Basos (auto) 0 Absolute Nucleated RBC 0 Nucleated RBC % 0 Sodium 138 Potassium 3.8 Chloride 108 Carbon Dioxide 22 Anion Gap 8 BUN 9 Creatinine 0.85 Est GFR ( Amer) 124.1 Est GFR (Non-Af Amer) 102.6 BUN/Creatinine Ratio 10.6 Glucose 96 Calcium 8.6 Total Bilirubin 0.60 AST 11 L ALT 15 Alkaline Phosphatase 64 Total Protein 6.2 L Albumin 3.6 Globulin 2.6 Albumin/Globulin Ratio 1.4 CT scan: personally reviewed and results per EMR Clotrimazole (Mycelex Elizabeth*) 10 mg PO FIVE TIMES DAILY [facility] Last Admin: 08/20/18 06:20 Dose: 10 mg Enoxaparin Sodium (Lovenox(*)) 120 mg SUBCUT Q12H [facility] Last Admin: 08/20/18 06:16 Dose: 120 mg Famotidine (Pepcid Iv*) 20 mg SLOW PUSH BID [facility] Last Admin: 08/20/18 08:39 Dose: 20 mg Fentanyl (Duragesic Patch 50 Mcg/Hr*) 50 mcg TRANSDERM Q72H [facility] Last Admin: 08/19/18 16:50 Dose: 50 mcg Hyoscyamine (Anaspaz Tab*) 0.125 mg PO Q4HR PRN PRN Reason: Cramping Sodium Chloride (Ns 0.9% 1000 Ml) 1,000 mls @ 100 mls/hr IV PER RATE [facility] Last Admin: 08/20/18 01:54 Dose: 100 mls/hr Hydromorphone HCl (Dilaudid Ground Host/Hostess *High Dose*) 100 mg in 20 mls @ 0 mls/hr LOOM BLOWER .change Q24H [facility]; Protocol Last Admin: 08/19/18 22:11 Dose: 0.4 mls/hr Piperacillin Sod/Tazobactam (Sod 3.375 gm/ Sodium Chloride) 100 mls @ 200 mls/ hr IVPB ONCE ONE Stop: 08/20/18 09:29 Naloxone HCl (Narcan*) 0.08 mg IV PUSH Q2M PRN PRN Reason: OVERSEDATION Nicotine (Nicotine Patch 21 Mg/24 Hr*) 1 patch TRANSDERM DAILY [facility] Last Admin: 08/20/18 08:38 Dose: 1 patch Ondansetron HCl (Zofran Inj*) 4 mg IV Q4H PRN PRN Reason: NAUSEA/VOMITING Pharmacy Consult (Zosyn Per Pharmacy*) 1 note FOLLOW UP .ZOSYN PER PHARMACY [facility] Pharmacy Profile Note (Fentanyl Patch Check Q Shift) 1 note FOLLOW UP 0700, 1900 [facility] Last Admin: 08/20/18 07:07 Dose: 1 note Assessment: 33 yo M w metastatic CRC on palliative FOLFIRI p.w. partial SBO either related to adhesions or IMER. Clinically improving. Also with radiographic PNA and dry cough, so will treat given immunosuppression. Plan: SBO: -clinically improving. If KUB improved this am will start PO dilaudid and advance diet slowly PNA: mild, early, minimally symptomatic start zosyn, will tx w augmentin on d/c PE: cont lovenox full code
[2018-08-20] MEDS ORDERED: Piperacillin/Tazobac ADVAN(*) 3.375 GM in NS 0.9% 100 ML* 100 ML IVPB ONE (09:00)
[2018-08-20] MEDS ORDERED: Zosyn per Pharmacy* NOTE FOLLOW UP SCH (09:00)
[2018-08-20] MEDS: HYDROmorphone TAB* 2 MG PO PRN ×3 (11:52→20:49)
[2018-08-20] MEDS: ZOSYN 3.375 GM Q8H per EXTENDED INFUSION IVPB SCH ×4 (13:55→22:09)
[2018-08-21] MEDS: HYDROmorphone TAB* 2 MG PO PRN ×3 (00:54→09:21)
[2018-08-21] MEDS: Enoxaparin(*) 150 MG/ML 1 ML SYRINGE SUBCUT SCH (05:28)
[2018-08-21] MEDS: ZOSYN 3.375 GM Q8H per EXTENDED INFUSION IVPB SCH ×2 (05:30)
[2018-08-21] MEDS: Clotrimazole TROCHE* 10 MG TROCHE PO SCH ×2 (05:30→09:22)
[2018-08-21 05:52] VITALS: BP 131/74
[2018-08-21 05:52] LABS: ABS Eosinophils 0.3 10^3/ul (0-0.6); ABS Lymphocytes 1.2 10^3/ul (1.0-4.8); ABS Monocytes 0.5 10^3/ul (0-0.8); ABS Neutrophils 4.7 10^3/ul (1.5-7.7); Hematocrit 30 % (42-52); Hemoglobin 10.3 g/dL (14.0-18.0); Lymphocyte % 17.8 %; Mean Corpuscular HGB Conc 34 g/dL (31-36); Mean Corpuscular Hemoglobin 31 pg (27-31); Mean Corpuscular Volume 90 fL (80-94); Mean Platelet Volume 8.6 fL (7.4-10.4); Nucleated Red Blood Cells % 0.1; Platelet Count 190 10^3/uL (150-450); Red Blood Count 3.34 10^6 /uL (4.18-5.48); Red Cell Distribution Width 15 % (10.5-15); White Blood Count 6.7 10^3/uL (3.5-10.8)
[2018-08-21 06:24] LABS: Albumin 3.3 g/dL (3.2-5.2); Albumin/Globulin Ratio 1.4 (1-3); BUN/Creatinine Ratio 6.3 (8-20); Calcium 8.3 mg/dL (8.6-10.3); EGFR African American 133.1 (>60); Globulin 2.4 g/dL (2-4); Potassium 3.6 mmol/L (3.5-5.0); Total Bilirubin 0.6 mg/dL (0.2-1.0); Total Protein 5.7 g/dL (6.4-8.9)
[2018-08-21] MEDS: fentaNYL Patch Check Q Shift 1 NOTE FOLLOW UP SCH (06:45)
[2018-08-21] MEDS: Famotidine IV* 10 MG/ML 2 ML (20 mg) SLOW PUSH SCH (07:50)
[2018-08-21] MEDS: Nicotine PATCH 21 MG/24 HR* PATCH TRANSDERM SCH (07:50)
--- NOTE | 2018-08-22 00:44 | DS ---
DISCHARGE SUMMARY: DATE OF ADMISSION: 08/19/18 DATE OF DISCHARGE: 08/21/18 PRIMARY ONCOLOGIST: Dr. Jose Gregorio. ATTENDING PHYSICIAN: Dr. Jose Gregorio.* (DICTATED BY SHAD YING) DISCHARGING PROVIDER: SHAD Ying. PRIMARY DISCHARGE DIAGNOSES: 1. Partial small bowel obstruction. 2. Metastatic colorectal cancer. 3. History of pulmonary embolus. 4. Thrush. 5. Pneumonia. DISCHARGE MEDICATIONS: 1. Fentanyl patch 50 mcg, apply transdermally every 72 hours. 2. Dilaudid 4 mg p.o. q.3 hours as needed for pain. 3. Hyoscyamine 0.375 mg p.o. twice daily. 4. Meclizine 25 mg p.o. twice daily as needed for dizziness. 5. Nystatin 500,000 units by mouth 4 times daily. 6. Protonix 40 mg p.o. daily. 7. Ranitidine 150 mg p.o. twice daily. 8. Ambien 10 mg p.o. at bedtime. 9. Augmentin 875 mg/125 p.o. twice daily x10 days. 10. Lovenox 120 mg subcu twice daily. 11. Zofran 4 mg p.o. q.6 hours as needed for nausea and vomiting. HOSPITAL IMAGING: CT abdomen and pelvis 08/19/18 demonstrates a partial small bowel obstruction visualized at the transition point at the posterior left paramidline mid abdomen just anterior to the circumferential periaortic lymphadenopathy, which may be due to adhesion or possible infiltrate of tumor. There is no evidence for obstruction of the small bowel within large ventral hernia. No significant change in extensive mesenteric and retroperitoneal lymphadenopathy. There is suggestion of a pneumonia at the right lung base. HOSPITAL COURSE: This is a 33-year-old gentleman under the care of Dr. Gregorio for treatment of metastatic colorectal cancer, who presented to the oncology clinic with complaints of abdominal distention, pain and watery bowel movements. The patient's symptoms had started a week and a half prior to his presentation, but had become significantly worse in the 3 to 4 days leading up. He reported some nausea, but no vomiting and was afebrile at that time. CT scan demonstrated a partial small bowel obstruction and the patient's pain was quite significant, requiring multiple doses of IV Dilaudid while in the oncology clinic. He was subsequently admitted and placed on a Dilaudid [employer]IDE for appropriate pain control and remained n.p.o. for a period of approximately 24 hours. After approximately 24 hours, the patient reported significant improvement in his abdominal pain. He was advanced to clear liquids that he tolerated well. He continued to have loose stools, but reported that his abdomen had become soft and was nontender and he was back to his baseline opiate requirements for pain control. Of note, there was an incidental finding of a possible right basilar infiltrate seen on the CT and he did develop a dry cough during his hospitalization. So, he was started on Zosyn and discharged with Augmentin for coverage for pneumonia. DISPOSITION AND FOLLOWUP PLAN: The patient is being discharged to home where he lives with his , in stable condition. He is scheduled for chemotherapy on 08/24/18. It is appropriate to continue with chemotherapy at this time, but the patient is instructed to contact oncology service with any worsening abdominal pain, distention, or nausea. SHAD YING [id number]/[facility] #: [id number] ENRIQUE
== END 2018-08-21 09:55 | disposition home or self-care (01) | DRG 247 ==
LOC: SSU 15:40
PROVIDERS: ADMIT Internal Medicine Hematology & Oncology; ATTEND Internal Medicine Hematology & Oncology
DX: K56.51 Intestinal adhesions [bands], with partial obstruction (principal); J18.9 Pneumonia, unspecified organism; C77.8 Secondary and unspecified malignant neoplasm of lymph nodes of multiple regions; C18.8 Malignant neoplasm of overlapping sites of colon; K43.9 Ventral hernia without obstruction or gangrene; B37.9 Candidiasis, unspecified; Z79.1 Long term (current) use of non-steroidal anti-inflammatories (NSAID); Z79.899 Other long term (current) drug therapy; Z88.8 Allergy status to other drugs, medicaments and biological substances; Z87.891 Personal history of nicotine dependence; Z80.0 Family history of malignant neoplasm of digestive organs; Z86.711 Personal history of pulmonary embolism
CPT/HCPCS: 36415; 74018; 80053; 85025; A9270-GY; J1170; J1642; J1650; J2405; J2543; J2997

== ENCOUNTER 2018-09-08 12:00 | Inpatient (IN) | payer OTHER ==
[2018-09-08] MEDS ORDERED: Lorazepam PYXIS KEY PRN (16:27)
[2018-09-08] MEDS ORDERED: NS 0.9% 1000 ML** 1,000 ML IV SCH (16:30)
[2018-09-08] MEDS ORDERED: Lidocaine 2% JELLY* 6 ML JELLY TOPICAL PRN (16:33)
[2018-09-08] MEDS ORDERED: Nicotine Lozenge* 4 MG LOZENGE MT PRN (16:35)
[2018-09-08] MEDS ORDERED: fentaNYL PATCH 50 MCG/HR TRANSDERM SCH (17:00)
[2018-09-08] MEDS ORDERED: Nicotine PATCH 14 MG/24 HR* PATCH ONE (17:08)
[2018-09-08] MEDS: Nicotine PATCH 14 MG/24 HR* PATCH TRANSDERM SCH (17:11)
[2018-09-08] MEDS: HYDROmorphone INJ1* 1 MG/ML SYRINGE IV SLOW PU PRN ×3 (18:18→23:11)
[2018-09-08] MEDS: Enoxaparin(*) 150 MG/ML 1 ML SYRINGE SUBCUT SCH (18:41)
[2018-09-08] MEDS: Ondansetron INJ* 2 MG/ML VIAL IV PRN ×2 (18:46→23:10)
[2018-09-08] MEDS: Nicotine Patch Removal NOTE FOLLOW UP SCH (19:25)
[2018-09-08] MEDS ORDERED: Iohexol 300* (CONTRAST) 10 ML SDV IV ONE (19:27)
[2018-09-08] MEDS: LORazepam INJ* 2 MG/ML 1 ML VIAL IV PUSH PRN (20:23)
[2018-09-08] MEDS ORDERED: NS 0.9% 1000 ML/HR X 1 BAG (TOTAL 1000 ML) IV ONE (23:00)
[2018-09-09] MEDS: HYDROmorphone INJ1* 1 MG/ML SYRINGE IV SLOW PU PRN ×8 (01:26→23:09)
[2018-09-09] MEDS: NS 0.9% 1000 ML** 1,000 ML IV SCH ×4 (03:27→23:09)
[2018-09-09] MEDS: Enoxaparin(*) 150 MG/ML 1 ML SYRINGE SUBCUT SCH ×2 (05:24→18:49)
[2018-09-09] MEDS: Ondansetron INJ* 2 MG/ML VIAL IV PRN ×4 (05:40→23:09)
[2018-09-09 05:57] LABS: ABS Basophils 0.1 10^3/ul (0-0.2); ABS Lymphocytes 1.5 10^3/ul (1.0-4.8); ABS Monocytes 0.2 10^3/ul (0-0.8); ABS Neutrophils 3.8 10^3/ul (1.5-7.7); Hematocrit 37 % (42-52); Hemoglobin 12.5 g/dL (14.0-18.0); Lymphocyte % 26.8 %; Mean Corpuscular HGB Conc 34 g/dL (31-36); Mean Corpuscular Hemoglobin 31 pg (27-31); Mean Corpuscular Volume 91 fL (80-94); Mean Platelet Volume 8.5 fL (7.4-10.4); Platelet Count 219 10^3/uL (150-450); Red Blood Count 4.07 10^6 /uL (4.18-5.48); Red Cell Distribution Width 15 % (10.5-15); White Blood Count 5.5 10^3/uL (3.5-10.8)
[2018-09-09 06:14] LABS: Albumin 3.9 g/dL (3.2-5.2); Albumin/Globulin Ratio 1.3 (1-3); BUN/Creatinine Ratio 15.2 (8-20); Calcium 8.9 mg/dL (8.6-10.3); EGFR African American 135.1 (>60); EGFR Non-African American 111.6 (>60); Globulin 2.9 g/dL (2-4); Potassium 4.3 mmol/L (3.5-5.0); Total Bilirubin 0.4 mg/dL (0.2-1.0); Total Protein 6.8 g/dL (6.4-8.9)
[2018-09-09] MEDS: fentaNYL Patch Check Q Shift 1 NOTE FOLLOW UP SCH ×2 (06:58→18:51)
[2018-09-09] MEDS: Nicotine PATCH 14 MG/24 HR* PATCH TRANSDERM SCH (10:52)
[2018-09-09] MEDS: LORazepam INJ* 2 MG/ML 1 ML VIAL IV PUSH PRN ×2 (11:39→18:49)
[2018-09-09] MEDS ORDERED: HYDROmorphone INJ1* 1 MG/ML SYRINGE IV ONE (17:00)
--- NOTE | 2018-09-09 18:08 | CONS ---
CC: Dr. Jose Gregorio; [facility] SURGICAL CONSULTATION REPORT: DATE OF CONSULT: 09/09/18 LOCATION: The patient was seen in room 414. HISTORY OF PRESENT ILLNESS: I was contacted to evaluate Wu Sepulveda for a possible incarcerated ve ntral incisional hernia with complications of small bowel obstruction. The patient was seen by his oncology group yesterday and was noted to have obstipation and nausea as well as vomiting. He underwent a CT scan of the abdomen and pelvis, which was consistent with a vent ral hernia with small bowel obstruction, transition point. The patient was admitted, placed on IV fl uid and observed. The patient had 2 similar episodes in the past that resolved nonoperatively. The patient did start passing flatus while hospitalized. Nausea did not resolve, but the vomiting di d. The patient does have a small appetite and continued to have abdominal pain mostly on the right s geraldo. He feels somewhat better, but not completely better than initial visit. The patient is status post hemicolectomy for metastatic colon cancer. He is currently on chemotherap y and had his last treatment 2 weeks ago. He is noted to have a ventral hernia. REVIEW OF SYSTEMS: No fevers or chills. Nausea as described. No dysuria. PHYSICAL EXAM: He is afebrile. Vital signs are stable, heart rate 93. Urine output is not recorded . He has had 2 medium bowel movements today. He is alert and oriented x3. He is in no apparent dis tress. Abdomen is soft, obese, tender on the right side. No skin changes. Surgical incision at the paraumbilical site is identified. Hernia defect is appreciated superiorly, but I could not apprecia te the lateral right side since the patient had pain at this site. He had negative rebound and bowel sounds are hypoactive. Rectal exam is not performed. DIAGNOSTIC STUDIES/LAB DATA: Labs and CT scan reviewed. ASSESSMENT AND PLAN: Ventral incisional hernia without clinical evidence of obstruction only with ra diographics from yesterday. Recommendation is for watchful waiting at this time as the patient is hi gh risk for hernia repair for prevention sake. If the patient shows no improvement, requires repair for bowel function. Then, we will consider taking him to the OR. I discussed with him the procedure and my big concern with him would be recurrence for hernia and therefore avoiding a hernia repair in this patient with metastatic colon cancer and a large hernia neck is the most prudent thing. We will follow the patient and I or my partner will see him tomorrow and we will continue to follow along to see if he requires any surgical intervention. At this time, watchful waiting, strict I's and O's, s ips of clears only. [id number]/[facility] #: [id number]
[2018-09-09] MEDS: Nicotine Patch Removal NOTE FOLLOW UP SCH (20:52)
[2018-09-10] MEDS: HYDROmorphone INJ1* 1 MG/ML SYRINGE IV SLOW PU PRN ×10 (02:43→23:51)
[2018-09-10] MEDS: Ondansetron INJ* 2 MG/ML VIAL IV PRN ×5 (03:11→21:49)
[2018-09-10] MEDS: Enoxaparin(*) 150 MG/ML 1 ML SYRINGE SUBCUT SCH ×2 (05:32→18:44)
[2018-09-10] MEDS: NS 0.9% 1000 ML** 1,000 ML IV SCH ×3 (05:44→19:16)
[2018-09-10] MEDS: fentaNYL Patch Check Q Shift 1 NOTE FOLLOW UP SCH ×2 (06:41→19:16)
[2018-09-10] MEDS: Nicotine PATCH 14 MG/24 HR* PATCH TRANSDERM SCH (07:38)
[2018-09-10] MEDS: LORazepam INJ* 2 MG/ML 1 ML VIAL IV PUSH PRN ×3 (07:39→23:50)
[2018-09-10] MEDS ORDERED: Pneumococcal *Vac Polyvalent 0.5 ML VIAL IM ONE (09:00)
--- NOTE | 2018-09-10 09:30 | PN ---
Progress Note - Progress Note Date of Service: 09/10/18 SOAP: Subjective: [Feeling better this am. Minimal pain. Soft BMs. No nausea or vomiting.] Objective: [ Enoxaparin Sodium (Lovenox(*)) 120 mg SUBCUT Q12H [facility] Last Admin: 09/10/18 05:32 Dose: 120 mg Fentanyl (Duragesic Patch 50 Mcg/Hr*) 50 mcg TRANSDERM Q72H [facility] Last Admin: 09/08/18 18:16 Dose: 50 mcg Heparin Sodium (Porcine) (Heparin Flush Port (Ivad)) 5 ml FLUSH DAILY [facility]; Protocol Last Admin: 09/10/18 07:22 Dose: Not Given Hydromorphone HCl (Dilaudid Inj1s*) 1 mg IV SLOW PU Q2H PRN PRN Reason: PAIN Last Admin: 09/10/18 07:39 Dose: 1 mg Sodium Chloride (Ns 0.9% 1000 Ml) 1,000 mls @ 150 mls/hr IV PER RATE [facility] Last Admin: 09/10/18 05:44 Dose: 150 mls/hr Lidocaine HCl (Lidocaine 2% Jelly*) 1 applic TOPICAL TID PRN PRN Reason: PAIN Lorazepam (Ativan Inj*) 1 mg IV PUSH Q6H PRN PRN Reason: Anxiety/nausea Last Admin: 09/10/18 07:39 Dose: 1 mg Miscellaneous (Ativan Pyxis Suresh) 1 ea N/A .ATIVAN IV SURESH PRN PRN Reason: PYXIS SURESH Nicotine (Nicotine Patch 14 Mg/24 Hr*) 1 patch TRANSDERM DAILY [facility] Last Admin: 09/10/18 07:38 Dose: 1 patch Nicotine Polacrilex (Nicotine Lozenge*) 4 mg MT Q2H PRN PRN Reason: CRAVINGS Ondansetron HCl (Zofran Inj*) 4 mg IV Q4H PRN PRN Reason: NAUSEA Last Admin: 09/10/18 03:11 Dose: 4 mg Pharmacy Profile Note (Nicotine Patch Removal Note*) 1 note FOLLOW UP 2100 [facility] Last Admin: 09/09/18 20:52 Dose: Not Given Pharmacy Profile Note (Fentanyl Patch Check Q Shift) 1 note FOLLOW UP 0700, 1900 [facility] Last Admin: 09/10/18 06:41 Dose: 1 note Vital Signs: Temp Pulse Resp BP Pulse Ox 98.3 F 83 16 132/77 94 09/10/18 07:57 09/10/18 07:57 09/10/18 07:57 09/10/18 07:57 09/10/18 07:57 Exam: Gen: Relatively well appearing 33 yo male in NAD HEENT: MMM CV: RRR, no m/r/g Resp: few wheezes Abd: soft, active BS, umbilical and ventral hernia which are soft and nonTTP Ext: no edema Skin: tattoos, no rashes] Assessment: [33 yo male with metastatic colon CA currently treated with palliative FOLFIRI and stable disease on recent imaging who was admitted with recurrent SBO. Surgical consultation yesterday recommended continued supportive care measures and avoiding surgery if possible. He has now improved, SBO seems to have resolved.] Plan: [1. SBO - with ventral and umbilical hernia, transition point appeared to be in the umbilical hernia - now resolved with bowel rest - no plans for surgical intervention - advance to clear liquids and if tolerated then full liquids this evening 2. Metastatic CRC - cont palliative FOLFIRI following discharge 3. h/o PE - cont Lovenox Dispo: possible dc home tomorrow if he tolerates advancing his diet]
[2018-09-10] MEDS: Nicotine Patch Removal NOTE FOLLOW UP SCH (20:06)
--- NOTE | 2018-09-10 23:08 | PN ---
Progress Note - Progress Note Date of Service: 09/10/18 Note: Surgery Progress (late entry; patient seen around 11:30 this a.m.) S: feeling better, less pain. Has passed flatus and stool. Still has some discomfort right side. O: Gen: WN, obese male in NAD Heart: reg Lungs: clear Abd: umbilical bulge apparent and upper midline surgical scar; BS +; soft; mild to moderate tenderness Right mid abdomen; remainder relatively nontender. Easily reducible ventral hernia and umbilical hernia (appear to be contiguous) with well-defined Left side of fascial defect; more difficult to discern right side of fascia 2/2 tenderness. A: SBO, improving P: cont conservative management; relative bowel rest w/ gradual advancement of diet as mervin once obstruction resolves. Will cont to follow. Discussed w/ Dr. Mendoza.
[2018-09-11] MEDS: NS 0.9% 1000 ML** 1,000 ML IV SCH ×2 (01:54→08:16)
[2018-09-11] MEDS: HYDROmorphone INJ1* 1 MG/ML SYRINGE IV SLOW PU PRN ×4 (01:54→08:11)
[2018-09-11] MEDS: Ondansetron INJ* 2 MG/ML VIAL IV PRN (03:57)
[2018-09-11] MEDS: Enoxaparin(*) 150 MG/ML 1 ML SYRINGE SUBCUT SCH (05:55)
[2018-09-11] MEDS: fentaNYL Patch Check Q Shift 1 NOTE FOLLOW UP SCH (06:03)
[2018-09-11 06:12] LABS: ABS Eosinophils 0.3 10^3/ul (0-0.6); ABS Lymphocytes 2.5 10^3/ul (1.0-4.8); ABS Monocytes 0.5 10^3/ul (0-0.8); ABS Neutrophils 1.9 10^3/ul (1.5-7.7); Hematocrit 35 % (42-52); Hemoglobin 11.8 g/dL (14.0-18.0); Lymphocyte % 48.2 %; Mean Corpuscular HGB Conc 34 g/dL (31-36); Mean Corpuscular Hemoglobin 30 pg (27-31); Mean Corpuscular Volume 90 fL (80-94); Mean Platelet Volume 7.9 fL (7.4-10.4); Nucleated Red Blood Cells % 0.1; Platelet Count 209 10^3/uL (150-450); Red Blood Count 3.88 10^6 /uL (4.18-5.48); Red Cell Distribution Width 14 % (10.5-15); White Blood Count 5.2 10^3/uL (3.5-10.8)
[2018-09-11 06:32] LABS: Albumin 3.7 g/dL (3.2-5.2); Albumin/Globulin Ratio 1.4 (1-3); BUN/Creatinine Ratio 7.3 (8-20); Calcium 8.7 mg/dL (8.6-10.3); EGFR African American 129.4 (>60); EGFR Non-African American 106.9 (>60); Globulin 2.6 g/dL (2-4); Potassium 3.8 mmol/L (3.5-5.0); Total Bilirubin 0.4 mg/dL (0.2-1.0); Total Protein 6.3 g/dL (6.4-8.9)
[2018-09-11] MEDS: Nicotine PATCH 14 MG/24 HR* PATCH TRANSDERM SCH (08:12)
[2018-09-11 08:53] VITALS: BP 142/81
--- NOTE | 2018-09-11 12:30 | DS ---
CC: Dr. Gregorio; Dr. Mendoza DISCHARGE SUMMARY: DATE OF ADMISSION: 09/08/18 DATE OF DISCHARGE: 09/11/18 PRIMARY ONCOLOGIST: Dr. Jose Gregorio. CONSULTING SURGEON: Dr. Claudio Mendoza. ATTENDING PHYSICIAN: Dr. Jose Gregorio. DISCHARGING PROVIDER: SHAD Ying PRIMARY DISCHARGE DIAGNOSES: 1. Small bowel obstruction. 2. Metastatic colon cancer. SECONDARY DISCHARGE DIAGNOSIS: History of pulmonary embolism/anticoagulated with full-dose Lovenox. DISCHARGE MEDICATIONS: 1. Docusate 100 mg p.o. at bedtime. 2. Dilaudid 4 mg p.o. q.3 hours as needed for pain. 3. Hyoscyamine 0.125 mg sublingual q.4 hours as needed for abdominal cramping. 4. Ibuprofen 400 mg p.o. q.6 hours as needed for pain. 5. Lidocaine jelly 2% applied 3 times daily as needed for pain. 6. Meclizine 25 mg p.o. b.i.d. as needed for dizziness. 7. Protonix 40 mg p.o. daily. 8. Simethicone 80 mg p.o. at mealtime as needed. 9. Ambien 5 mg p.o. at bedtime. 10. Lovenox 120 mg subcu twice daily. 11. Fentanyl patch 50 mcg apply transdermally every 72 hours. 12. Zofran 4 mg p.o. q.6 hours as needed for nausea. HOSPITAL IMAGING: CT abdomen and pelvis demonstrates small bowel obstruction with a large ventral he rnia as well as an umbilical hernia with a transition point within the supraumbilical region. There appears to be stable retroperitoneal and mesenteric lymphadenopathy in the abdomen and pelvis. HOSPITAL COURSE: This is a 33-year-old gentleman with metastatic colon cancer who is treated by Dr. Gregorio, currently receiving palliative FOLFIRI and tolerating treatment well. He has a large ventral and and umbilical hernia and has had prior small bowel obstructions. He presented with complaints of increasing abdominal pain with nausea and vomiting. He had acute pain near midline. He had been se en the day prior to admission in the oncology office with similar but less severe complaints and imag ing at that time suggested rectal impaction and recommendation was for a more aggressive bowel regime n. Despite this, the symptoms progressed. CT scan of the abdomen and pelvis at the time of admission demonstrated small bowel obstruction with transition point likely within his umbilical hernia. The patient was placed on bowel rest, NG tube was not necessary for symptom relief, and after approxi mately 24 hours, the patient's abdominal pain began to improve and he had liquid stools. His diet wa s progressed and he was tolerating a full liquid diet without increased pain, nausea, or vomiting at the time of discharge. The patient was evaluated by surgical team during this hospitalization. There had been discussion pr eviously about repairing his hernias. Recommendation continues to be at this time to manage small maura wel obstructions conservatively and surgical intervention would be only in the case if conservative m anagement fails. DISPOSITION AND FOLLOWUP PLAN: The patient is being discharged to home in stable condition where he lives with his . Plan to resume chemotherapy next week. An appointment has been made on his [facility] half[facility]way for Friday09/16/18 at 10 a.m. for his next chemo infusion with a followup shortly thereafter. The patient is encouraged to contact the oncology office with any recurrent abdominal pain, nausea, vomiting, or other acute symptoms. SHAD YING [id number]/[facility] #: [id number]
== END 2018-09-11 10:30 | disposition home or self-care (01) | DRG 254 ==
LOC: MED 12:00 → OBSVTOIN 09-09 12:00
PROVIDERS: ADMIT Internal Medicine Hematology & Oncology; ATTEND Internal Medicine Hematology & Oncology
DX: K43.0 Incisional hernia with obstruction, without gangrene (principal); C19 Malignant neoplasm of rectosigmoid junction; C79.9 Secondary malignant neoplasm of unspecified site; K42.0 Umbilical hernia with obstruction, without gangrene; R00.0 Tachycardia, unspecified; K59.00 Constipation, unspecified; E66.9 Obesity, unspecified; Z79.01 Long term (current) use of anticoagulants; Z90.49 Acquired absence of other specified parts of digestive tract; Z88.8 Allergy status to other drugs, medicaments and biological substances; Z87.891 Personal history of nicotine dependence; Z80.0 Family history of malignant neoplasm of digestive organs; Z92.21 Personal history of antineoplastic chemotherapy; Z86.711 Personal history of pulmonary embolism; Z68.34 Body mass index [BMI] 34.0-34.9, adult
CPT/HCPCS: 36415; 74177; 80053; 85025; 99219; 99232; 99239; A9270-GY; G0378; J1170; J1642; J1650; J2060; J2405; Q9967

== ENCOUNTER 2018-12-21 13:53 | Inpatient (IN) | payer OTHER ==
[2018-12-21] MEDS ORDERED: Ondansetron INJ* 2 MG/ML VIAL IV ONE ×2 (14:21→16:19)
[2018-12-21] MEDS ORDERED: NS 0.9% 1000 ML** 1,000 ML IV ONE ×2 (14:21→17:43)
[2018-12-21 14:52] LABS: ABS Eosinophils 0.2 10^3/ul (0-0.6); ABS Lymphocytes 0.8 10^3/ul (1.0-4.8); ABS Monocytes 0.9 10^3/ul (0-0.8); ABS Neutrophils 5.1 10^3/ul (1.5-7.7); Eosinophil % 2.2 %; Hematocrit 35 % (42-52); Hemoglobin 12.3 g/dL (14.0-18.0); Mean Corpuscular HGB Conc 35 g/dL (31-36); Mean Corpuscular Hemoglobin 30 pg (27-31); Mean Corpuscular Volume 87 fL (80-94); Mean Platelet Volume 8.5 fL (7.4-10.4); Platelet Count 213 10^3/uL (150-450); Red Blood Count 4.05 10^6 /uL (4.18-5.48); Red Cell Distribution Width 17 % (10-15)
[2018-12-21] MEDS ORDERED: HYDROmorphone INJ1* 1 MG/ML SYRINGE IV SLOW PU ONE ×3 (14:54→17:28)
[2018-12-21 15:11] LABS: Albumin 3.9 g/dL (3.2-5.2); Albumin/Globulin Ratio 1.2 (1-3); BUN/Creatinine Ratio 14.1 (8-20); Calcium 8.9 mg/dL (8.6-10.3); EGFR African American 113.3 (>60); EGFR Non-African American 93.6 (>60); Globulin 3.2 g/dL (2-4); Potassium 3.6 mmol/L (3.5-5.0); Total Bilirubin 0.8 mg/dL (0.2-1.0); Total Protein 7.1 g/dL (6.4-8.9)
--- NOTE | 2018-12-21 15:12 | ED ---
Abdominal Pain/Male - HPI Summary HPI Summary: This pt is a 33 y/o male, with hx of metastatic colon CA currently on chemo, SBO , multiple abdominal hernias, presenting to [facility] c/o severe abd pain since . Pt states he began vomiting on 12/12/18 but began feeling better until when pt received his last chemo. Pt notes his pain is around his umbilicus and around his ventral hernia. He describes his abd pain as cramping and "someone stabbing with a knife." Additionally he reports nausea, vomiting, and diarrhea. He notes decreased PO intake ("not even water") secondary to vomiting. Pt is passing gas. He notes he has been hiccuping prior to vomiting. He reports cold sweats but denies fever. His medications include lovenox, fentanyl patch, dilaudid. His oncologist is Dr. Gregorio. - History of Current Complaint Chief Complaint: EDAbdPain Stated Complaint: ABD PAIN PER PT Time Seen by Provider: 12/21/18 14:17 Hx Obtained From: Patient Onset/Duration: Lasting Days, Still Present Timing: Lasting Days Severity Currently: Severe Pain Intensity: 10 Pain Scale Used: 0-10 Numeric Location: Diffuse Radiates: No Character: Cramping, Other: - stabbing Aggravating Factor(s): Nothing Alleviating Factor(s): Nothing Associated Signs And Symptoms: Positive: Diaphoresis, Nausea, Vomiting, Diarrhea. Negative: Fever - Allergies/Home Medications Allergies/Adverse Reactions: Allergies Allergy/AdvReac Type Severity Reaction Status Date / Time prochlorperazine Allergy Shakes Verified 12/21/18 14:02 [From Compazine] PMH/Surg Hx/FS Hx/Imm Hx Endocrine/Hematology History: Denies: Hx Diabetes, Hx Thyroid Disease Cardiovascular History: Reports: Hx Embolism - PE, Hx Myocardial Infarction Denies: Hx Congestive Heart Failure, Hx Deep Vein Thrombosis, Hx Hypertension , Hx Pacemaker/ICD Respiratory History: Reports: Hx Asthma - subsided when child, Hx Pulmonary Embolism Denies: Hx Chronic Obstructive Pulmonary Disease (COPD), Hx Lung Cancer, Hx Pneumonia, Hx Seasonal Allergies GI History: Reports: Hx Gastrointestinal Bleed, Hx Obstructive Bowel, Hx Ulcer - stomach--2 years ago. No problem for the last two months., Other GI Disorders - colon CA stage 4. SBO 08/2018. Denies: Hx Gall Bladder Disease, Hx Urosepsis History: Denies: Hx Dialysis, Hx Kidney Stones, Hx Renal Disease Sensory History: Reports: Hx Contacts or Glasses Denies: Hx Hearing Aid Opthamlomology History: Reports: Hx Contacts or Glasses Neurological History: Denies: Hx Dementia, Hx Migraine, Hx Seizures, Hx Transient Ischemic Attacks (TIA) Psychiatric History: Reports: Hx Anxiety, Hx Depression Denies: Hx Panic Disorder, Hx Schizophrenia, Hx Bipolar Disorder - Cancer History Cancer Type, Location and Year: STAGE 4 COLON CANCER 2017 Hx Chemotherapy: Yes - Surgical History Surgery Procedure, Year, and Place: hand, colon reduction Hx Anesthesia Reactions: No Infectious Disease History: No Infectious Disease History: Denies: Hx Clostridium Difficile, Hx Hepatitis, Hx Human Immunodeficiency Virus (HIV), Hx of Known/Suspected MRSA, Hx Shingles, Hx Tuberculosis, Hx Known/ Suspected VRE, Hx Known/Suspected VRSA, History Other Infectious Disease, Traveled Outside the [place] in Last 30 Days - Family History Known Family History: Positive: Cardiac Disease - WPW in family, Hypertension - Social History Alcohol Use: None Substance Use Type: Reports: Marijuana Substance Use Comment - Amount & Last Used: every night Smoking Status (MU): Heavy Every Day Tobacco Smoker Type: Cigarettes Amount Used/How Often: 1 pk a day Length of Time of Smoking/Using Tobacco: 19 YRS Review of Systems Positive: Skin Diaphoresis. Negative: Fever, Chills Positive: Abdominal Pain, Vomiting, Diarrhea, Nausea All Other Systems Reviewed And Are Negative: Yes Physical Exam - Summary Physical Exam Summary: Constitutional: Well-developed, Well-nourished, Alert. (-) Distressed Skin: Warm, Dry. Ecchymosis to the abdomen. HENT: Normocephalic; Atraumatic Eyes: Conjunctiva normal Neck: Musculoskeletal ROM normal neck. (-) JVD, (-) Stridor Cardio: Rhythm regular, rate normal, Heart sounds normal; Intact distal pulses; Radial pulses are 2+ and symmetric. (-) Murmur Pulmonary/Chest wall: Effort normal. (-) Respiratory distress, (-) Wheezes, (-) Rales Abd: Soft, Abdomen is distended. Periumbilical tenderness with ventral hernia. ( -) Guarding, (-) Rebound. Ecchymosis to the abdomen. Musculoskeletal: (-) Edema Lymph: (-) Cervical adenopathy Neuro: Alert, Oriented x3 Psych: Mood and affect Normal Triage Information Reviewed: Yes Vital Signs On Initial Exam: Initial Vitals Temp Pulse Resp BP Pulse Ox 98.3 F 120 18 143/98 96 12/21/18 13:59 12/21/18 13:59 12/21/18 13:59 12/21/18 13:59 12/21/18 13:59 Vital Signs Reviewed: Yes Diagnostics - Vital Signs Vital Signs Temp Pulse Resp BP Pulse Ox 12/21/18 13:59 98.3 F 120 18 143/98 96 - Laboratory Lab Results: Lab Results 12/21/18 Range/Units 14:46 WBC 7.0 (3.5-10.8) 10^3/uL RBC 4.05 L (4.18-5.48) 10^6 /uL Hgb 12.3 L (14.0-18.0) g/dL Hct 35 L (42-52) % MCV 87 (80-94) fL MCH 30 (27-31) pg MCHC 35 (31-36) g/dL RDW 17 H (10-15) % Plt Count 213 (150-450) 10^3/uL MPV 8.5 (7.4-10.4) fL Neut % (Auto) 72.9 % Lymph % (Auto) 12.0 % Major % (Auto) 12.6 % Eos % (Auto) 2.2 % Baso % (Auto) 0.3 % Absolute Neuts (auto) 5.1 (1.5-7.7) 10^3/ul Absolute Lymphs (auto) 0.8 L (1.0-4.8) 10^3/ul Absolute Monos (auto) 0.9 H (0-0.8) 10^3/ul Absolute Eos (auto) 0.2 (0-0.6) 10^3/ul Absolute Basos (auto) 0.0 (0-0.2) 10^3/ul Absolute Nucleated RBC 0.0 10^3/ul Nucleated RBC % 0.0 Result Diagrams: 12/21/18 14:46 12/21/18 14:46 Lab Statement: Any lab studies that have been ordered have been reviewed, and results considered in the medical decision making process. - CT Abdomen/Pelvis CT CT Interpretation Completed By: Radiologist Summary of CT Findings: IMPRESSION: Hepatic steatosis is noted. Extensive yarelis hepatus adenopathy and retroperitoneal adenopathy some of which are calcified but appear to be unchanged in size since previous exam. Left pelvic sidewall adenopathy is noted which may be slightly incresed since previous exam. There are 2 ventral hernia noted. An upper anterior abdominal wall hernia with a defect in the rectus measuring up to 7.5 cm in length does not appear to cause an obstructions. There is a periumbilical hernia more inferiorly which appears to demonstrate dilatation proximally and collapsed loops of bowel distally. This may be the cause of the small bowel obstruction. Findings are similar to that identified on September 08, 2018. Dr. Stanley has reviewed this report. Re-Evaluation - Re-Evaluation First Eval Comment: CT scan with small bowel obstruction, will place NG tube and discuss with surgery likely conservative therapy Abdominal Pain Male Course/Dx - Course Course Of Treatment: 33-year-old male with a history of metastatic colon cancer and chemotherapy, ventral hernia, prior SBO who presents with vomiting, abdominal pain. Physical examination w distended abdomen, ventral hernia with palpable bowel (mildly tender), high-pitched bowel sounds. Concerning for SBO despite small amount of diarrhea. Will check CT scan with IV and PO contrast, labs to assess for infection, give fluids and discuss with oncology. - Diagnoses Provider Diagnoses: SBO (small bowel obstruction) - Provider Notifications Discussed Care Of Patient With: Mahin Mendez Time Discussed With Above Provider: 17:34 Instructed by Provider To: Other - Discussed with Dr. Mendez, general surgeon, who will come see pt in the ED. [17:37] Spoke with Dr. Gregorio, oncologist, and I updated him on pt's findings of SBO. Dr. Gregorio will follow up tomorrow. [17:45] Discussed with Dr. Abdalla, hospitalist, who accepted the pt for admission. Discharge ED - Sign-Out/Discharge Documenting (check all that apply): Patient Departure - admit to [facility] [place] Patient Received Moderate/Deep Sedation with Procedure: No - Discharge Plan Condition: Stable Disposition: ADMITTED TO [facility] Referrals: Jose Gregorio MD [Primary Care Provider] - - Billing Disposition and Condition Condition: STABLE Disposition: Admitted to [facility] - Attestation Statements Document Initiated by Scribsimone: Yes Documenting Scribe: Treasure Camargo Provider For Whom Scribe is Documenting (Include Credential): Tova Stanley MD Scribe Attestation: ITreasure, scribed for Tova Stanley MD on 12/21/18 at 1831. Scribe Documentation Reviewed: Yes Provider Attestation: The documentation as recorded by the Treasure sauceda accurately reflects the service I personally performed and the decisions made by Tova stoner MD Status of Scribe Document: Viewed
[2018-12-21] MEDS ORDERED: Iohexol 300* (CONTRAST) 10 ML SDV IV ONE (16:33)
[2018-12-21] MEDS ORDERED: Metoclopramide IV* 5 MG/ML 2 ML VIAL IV SLOW PU ONE (17:28)
[2018-12-21] MEDS ORDERED: Enoxaparin(*) 40 MG/0.4 ML SYR SUBCUT SCH (18:30)
--- NOTE | 2018-12-21 18:38 | ADMNOTE ---
Subjective Date of Service: 12/21/18 Interval History: ADMISSION HISTORY AND PHYSICAL EXAM: Allergies Allergy/AdvReac Type Severity Reaction Status Date / Time prochlorperazine Allergy Shakes Verified 12/21/18 14:02 [From Compazine] Home Medications Medication Instructions Recorded Confirmed Type Ondansetron TAB* [Zofran 4 MG Tab*] 4 mg PO Q6H PRN #90 tab 02/18/18 09/08/18 Rx Hyoscyamine Sulfate 0.125 mg SL Q4HR PRN 08/19/18 09/08/18 History Meclizine TAB* [Antivert 12.5 TAB*] 25 mg PO BID 08/19/18 09/08/18 History Pantoprazole TAB * [Protonix TAB*] 40 mg PO DAILY 08/19/18 09/08/18 History Zolpidem TAB* [Ambien*] 5 mg PO BEDTIME PRN 08/19/18 09/08/18 History Docusate CAP* [Colace Cap*] 100 mg PO BEDTIME PRN 09/08/18 09/08/18 History HYDROmorphone TAB* [Dilaudid Tab*] 4 mg PO Q3HR 09/08/18 09/08/18 History Ibuprofen TAB* [Motrin TAB* 400 MG] 400 mg PO Q6H PRN 09/08/18 09/08/18 History Lidocaine 2% JELLY* 1 applic TOPICAL TID PRN 09/08/18 09/08/18 History Menthol/Camphor [Icy Hot Advanced 09/08/18 History Relief Cream] Simethicone TAB* [Mylicon TAB*] 80 mg PO AC PRN 09/08/18 09/08/18 History Enoxaparin(*) [Lovenox(*)] 120 mg SUBCUT Q12H #60 syringe 09/11/18 Rx fentaNYL [Fentanyl] 50 mcg TRANSDERM Q72H #10 patch 09/11/18 Rx MDD 1 patch q 72h HPI: The patient has had N&V at home for 1 week. He has had a number of episodes of SBO which he treated at home with a clear liquid diet and he got better. He put himself on a clear liquid diet this time but today had more emesis and more trouble keeping liquids down. He was taking 1.5 hydromorphone 4 mg tablets q 3 hr with some relief of pain. Family History: Findings - Mult case of colon, pancreatic and gastric ca, including colon ca in 32 yr old cousin. Social History: Findings - Lives with his who is his SDM. Smoker. No alcohol abuse. 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 Mediport. PE 02/05. Review of Systems - Measurements Intake and Output: Intake and Output Last 24 Hours 12/19/18 12/20/18 12/21/18 12/22/18 06:59 06:59 06:59 06:59 Weight 230 lb - Review of Systems Constitutional Symptoms: Negative: Weight Gain, Weight Loss, Weakness, Fatigue, Fever, Night Sweats, Unexplained Falls, Other Dermatology: Positive: Normal HEENT: Positive: Normal Eyes: Positive: Normal Thyroid: Positive: Normal Pulmonary: Positive: Normal Cardiology: Positive: Normal Gastroenterology: Positive: Abdominal Pain, Nausea, Vomiting Genital - Urinary: Positive: Normal Genitourinary - Male: Negative: Prostatism, Erectile Dysfunction, Family Hx of Prostate Cancer, Other Musculoskeletal: Negative: Joint Pain, Joint Stiffness, Arthritis, Osteoporosis, Low Back Pain , Sciatica, Joint Deformities, Kyphoscoliosis, Other Endocrinology: Positive: Normal Hematologic/Lymphatic: Negative: Anemia, Easy Bruising, Hx Leukemia, Hx Lymphoma, Use of Anticoagulant, Use of Antiplatelet Drugs, Other Neurology: Positive: Normal Psychiatry: Positive: Normal Allergic/Immunologic: Positive: Hx Anaphylaxis, Hx Angioedema, Hx Environmental , Hx Seasonal, Asthma, Hx HIV, Immunocompromise, Swollen Glands LymphNodes, Other Objective Active Medications: Enoxaparin Sodium (Lovenox(*)) 40 mg SUBCUT Q24H [facility] Enoxaparin Sodium (Lovenox(*)) 120 mg SUBCUT Q12H [facility] Fentanyl (Fentanyl Patch 37.5 Mcg/Hr(Nf)) patch TRANSDERM Q72H [facility] Hydromorphone HCl (Dilaudid Inj1s*) 2 mg IV SLOW PU Q4H PRN PRN Reason: PAIN - MODERATE Sodium Chloride (Ns 0.9% 1000 Ml) 1,000 mls @ 1,000 mls/hr IV ONCE ONE Stop: 12/21/18 18:42 Potassium Chloride/Dextrose (D5w 1/2 Ns Kcl 20 Meq 1000 Ml*) 1,000 mls @ 150 mls/hr IV PER RATE [facility] Meclizine HCl (Antivert Tab*) 25 mg PO BID [facility] Non-Formulary Medication (Hyoscyamine Sulfate [Hyoscyamine Sulfate]) 0.125 mg SL Q4HR PRN PRN Reason: Cramping Ondansetron HCl (Zofran Inj*) 4 mg IV Q4H PRN PRN Reason: NAUSEA Vital Signs - 8 hr 12/21/18 12/21/18 12/21/18 13:59 14:18 14:19 Temperature 98.3 F Pulse Rate 120 117 117 Respiratory 18 Rate Blood Pressure 143/98 130/100 (mmHg) O2 Sat by Pulse 96 98 97 Oximetry 12/21/18 12/21/18 12/21/18 14:49 15:00 15:13 Temperature Pulse Rate 111 112 Respiratory 18 Rate Blood Pressure 130/84 (mmHg) O2 Sat by Pulse 96 94 Oximetry 12/21/18 12/21/18 12/21/18 15:19 15:49 16:00 Temperature Pulse Rate 109 102 100 Respiratory Rate Blood Pressure 119/92 128/79 (mmHg) O2 Sat by Pulse 94 97 97 Oximetry 12/21/18 12/21/18 12/21/18 16:19 16:34 17:01 Temperature Pulse Rate 104 104 Respiratory 18 Rate Blood Pressure 130/84 (mmHg) O2 Sat by Pulse 96 97 Oximetry 12/21/18 12/21/18 12/21/18 17:26 17:39 17:49 Temperature Pulse Rate 107 105 Respiratory 18 Rate Blood Pressure 143/83 125/76 (mmHg) O2 Sat by Pulse 94 93 Oximetry 12/21/18 12/21/18 18:00 18:19 Temperature Pulse Rate 105 102 Respiratory Rate Blood Pressure 113/88 (mmHg) O2 Sat by Pulse 93 93 Oximetry Oxygen Devices in Use Now: None Appearance: Alert, partly up on ED stretcher. In fair spirits. Looks comfortable. Eyes: No Scleral Icterus Neck: No Thyroid Enlargement, Masses Respiratory: Symmetrical Chest Expansion and Respiratory Effort, Clear to Auscultation, Clear to Percussion Cardiovascular: NL Sounds; No Murmurs; No JVD, RRR, No Edema, - - medport in L chest wall Abdominal: - - Ventral and umbilical hernias blend together. Rushing BS. Soft , sl tender. Extremities: No Edema, No Clubbing, Cyanosis, - Skin: No Rash or Ulcers, No Nodules or Sclerosis, - Neurological: Alert and Oriented x 3, NL Sensation Result Diagrams: 12/21/18 14:46 12/21/18 14:46 Additional Lab and Data: Lab Results 12/21/18 Range/Units 14:46 WBC 7.0 (3.5-10.8) 10^3/uL RBC 4.05 L (4.18-5.48) 10^6 /uL Hgb 12.3 L (14.0-18.0) g/dL Hct 35 L (42-52) % MCV 87 (80-94) fL MCH 30 (27-31) pg MCHC 35 (31-36) g/dL RDW 17 H (10-15) % Plt Count 213 (150-450) 10^3/uL MPV 8.5 (7.4-10.4) fL Neut % (Auto) 72.9 % Lymph % (Auto) 12.0 % Emmet % (Auto) 12.6 % Eos % (Auto) 2.2 % Baso % (Auto) 0.3 % Absolute Neuts (auto) 5.1 (1.5-7.7) 10^3/ul Absolute Lymphs (auto) 0.8 L (1.0-4.8) 10^3/ul Absolute Monos (auto) 0.9 H (0-0.8) 10^3/ul Absolute Eos (auto) 0.2 (0-0.6) 10^3/ul Absolute Basos (auto) 0.0 (0-0.2) 10^3/ul Absolute Nucleated RBC 0.0 10^3/ul Nucleated RBC % 0.0 Assess/Plan/Problems-Billing Assessment: - Patient Problems (1) Ventral hernia with bowel obstruction Current Visit: No Status: Acute Code(s): K43.6 - OTHER AND UNSP VENTRAL HERNIA WITH OBSTRUCTION, W/O GANGRENE SNOMED Code(s): 025601219 Comment: Transition point may be related to umbilical hernia. Bowel rest with clear liquid diet, IV fluids, PRN hydromorphone and ondansetron. Surgical consult has been requested. (2) Adenocarcinoma of colon metastatic to liver Current Visit: No Status: Acute Code(s): C18.9 - MALIGNANT NEOPLASM OF COLON , UNSPECIFIED; C78.7 - SECONDARY MALIG NEOPLASM OF LIVER AND INTRAHEPATIC BILE DUCT SNOMED Code(s): 8357005924339 Comment: No significant BM suppression. LFT's OK. Continue fentanyl patch. (3) Tobacco abuse Current Visit: Yes Status: Acute Code(s): Z72.0 - TOBACCO USE SNOMED Code( s): 209566058 Comment: NRT ordered. (4) Pulmonary emboli Current Visit: No Status: Acute Code(s): I26.99 - OTHER PULMONARY EMBOLISM WITHOUT ACUTE COR PULMONALE SNOMED Code(s): 01537191 Comment: Home dose enoxaparin ordered.
[2018-12-21] MEDS ORDERED: fentaNYL PATCH 37.5 MCG/HR(NF) PATCH.TD72 TRANSDERM SCH (19:00)
[2018-12-21] MEDS ORDERED: fentaNYL PATCH 12 MCG/HR TRANSDERM SCH (19:30)
[2018-12-21] MEDS ORDERED: fentaNYL PATCH 25 MCG/HR TRANSDERM SCH (19:30)
[2018-12-21] MEDS: D5W 1/2 NS KCl 20 Meq 1000 ML* 1,000 ML IV SCH (19:58)
[2018-12-21] MEDS: Enoxaparin(*) 100 MG/ML SYR SUBCUT SCH (19:58)
[2018-12-21] MEDS: Meclizine TAB* 12.5 MG PO SCH (19:58)
[2018-12-21] MEDS: Nicotine PATCH 21 MG/24 HR* PATCH TRANSDERM SCH (19:59)
[2018-12-21] MEDS: Ondansetron INJ* 2 MG/ML VIAL IV PRN (20:17)
[2018-12-21] MEDS: HYDROmorphone INJ1* 1 MG/ML SYRINGE IV SLOW PU PRN (20:17)
[2018-12-21] MEDS: Nicotine Patch Removal NOTE PATCH OFF SCH (21:02)
[2018-12-22] MEDS: HYDROmorphone INJ1* 1 MG/ML SYRINGE IV SLOW PU PRN ×9 (01:09→22:57)
[2018-12-22] MEDS: Hyoscyamine TAB* 0.125 MG PO PRN ×4 (01:14→20:56)
[2018-12-22] MEDS: D5W 1/2 NS KCl 20 Meq 1000 ML* 1,000 ML IV SCH ×3 (03:13→18:24)
[2018-12-22] MEDS: Ondansetron INJ* 2 MG/ML VIAL IV PRN ×4 (06:18→20:48)
[2018-12-22] MEDS: fentaNYL Patch Check Q Shift 1 NOTE FOLLOW UP SCH ×2 (07:19→19:04)
[2018-12-22] MEDS: Nicotine PATCH 21 MG/24 HR* PATCH TRANSDERM SCH (09:02)
[2018-12-22] MEDS: Meclizine TAB* 12.5 MG PO SCH ×2 (09:02→20:49)
[2018-12-22] MEDS: Enoxaparin(*) 100 MG/ML SYR SUBCUT SCH ×2 (09:08→20:48)
[2018-12-22] MEDS: Nicotine Patch Removal NOTE PATCH OFF SCH (20:49)
[2018-12-23] MEDS: HYDROmorphone INJ1* 1 MG/ML SYRINGE IV SLOW PU PRN ×10 (01:15→23:19)
[2018-12-23] MEDS: Ondansetron INJ* 2 MG/ML VIAL IV PRN ×3 (01:15→21:25)
[2018-12-23] MEDS: D5W 1/2 NS KCl 20 Meq 1000 ML* 1,000 ML IV SCH ×4 (01:22→23:19)
[2018-12-23] MEDS ORDERED: HYDROmorphone INJ1* 1 MG/ML SYRINGE IV SLOW PU ONE (03:45)
[2018-12-23] MEDS ORDERED: fentaNYL PATCH 50 MCG/HR TRANSDERM SCH (04:00)
[2018-12-23] MEDS: Metoclopramide IV* 5 MG/ML 2 ML VIAL IV SLOW PU PRN (04:50)
[2018-12-23] MEDS: fentaNYL Patch Check Q Shift 1 NOTE FOLLOW UP SCH ×2 (07:07→18:52)
[2018-12-23] MEDS: Meclizine TAB* 12.5 MG PO SCH ×2 (08:14→21:17)
[2018-12-23] MEDS: Enoxaparin(*) 100 MG/ML SYR SUBCUT SCH ×2 (08:20→21:16)
[2018-12-23] MEDS: Nicotine PATCH 21 MG/24 HR* PATCH TRANSDERM SCH (08:21)
[2018-12-23] MEDS ORDERED: Zolpidem TAB* 10 MG PO PRN (09:54)
[2018-12-23] MEDS ORDERED: fentaNYL PATCH 75 MCG/HR* 75 MCG TRANSDERM SCH (10:00)
--- NOTE | 2018-12-23 10:12 | PN ---
Progress Note - Progress Note Date of Service: 12/23/18 SOAP: Subjective: []Had a significant amount of pain over last 24 hours and apparently on admission Fentanyl patch decreased from 125 mcg to 37.5 mcg. Pain is localized in hernia with mild pain r/t chronic back pain. Pain improves when laying on right side. Pain meds help and asking consistently q2hrs for IV Dilaudid. Increase BS and passing more gas, both eructation and flatulence. Liquid/soft BMs. Small amt. of emesis this AM after breakfast, but denies nausea during assessment. Feels he has been tolerating clear liquid diet. Walking a little. Medications: Enoxaparin Sodium (Lovenox(*)) 120 mg SUBCUT Q12HR [facility] Fentanyl (Duragesic Patch 50 Mcg/Hr*) 50 mcg TRANSDERM Q72H [facility] Last Admin: 12/23/18 04:56 Dose: 50 mcg Hydromorphone HCl (Dilaudid Inj1s*) 2 mg IV SLOW PU Q2H PRN PRN Reason: PAIN - MODERATE Last Admin: 12/23/18 09:14 Dose: 2 mg Hyoscyamine (Anaspaz Tab*) 0.125 mg PO Q4HR PRN PRN Reason: Cramping Last Admin: 12/22/18 20:56 Dose: 0.125 mg Hyoscyamine (Levbid (Nf)) 0.375 mg PO BEDTIME [facility] Potassium Chloride/Dextrose (D5w 1/2 Ns Kcl 20 Meq 1000 Ml*) 1,000 mls @ 150 mls/hr IV PER RATE [facility] Last Admin: 12/23/18 08:18 Dose: 150 mls/hr Meclizine HCl (Antivert Tab*) 25 mg PO BID [facility] Last Admin: 12/23/18 08:14 Dose: 25 mg Metoclopramide HCl (Reglan Iv*) 10 mg IV SLOW PU Q6H PRN PRN Reason: NAUSEA/VOMITING Last Admin: 12/23/18 04:50 Dose: 10 mg Nicotine (Nicotine Patch 21 Mg/24 Hr*) 1 patch TRANSDERM DAILY [facility] Last Admin: 12/23/18 08:21 Dose: 1 patch Ondansetron HCl (Zofran Inj*) 4 mg IV Q4H PRN PRN Reason: NAUSEA Last Admin: 12/23/18 01:15 Dose: 4 mg Pharmacy Profile Note (Nicotine Patch Removal Note*) 1 note PATCH OFF 2100 [facility] Last Admin: 12/22/18 20:49 Dose: 1 note Pharmacy Profile Note (Fentanyl Patch Check Q Shift) 1 note FOLLOW UP 0700, 1900 [facility] Last Admin: 12/23/18 07:07 Dose: 1 note Zolpidem Tartrate (Ambien Tab*) 10 mg PO BEDTIME PRN PRN Reason: SLEEP Objective: [] Vital Signs Temp Pulse Resp BP Pulse Ox 98.1 F 93 18 135/78 96 12/23/18 07:29 12/23/18 07:29 12/23/18 09:14 12/23/18 07:29 12/23/18 07:29 A&Ox3, EOMI, neuro grossly non-focal HRR, S1S2 LS clear +BSx4 quads, abd. soft, mild tenderness to umbilical hernia area Assessment: []33 yo male with metastatic colorectal cancer with recurrent SBO @ known umbilical hernia. Appears to be improving with bowel rest. Plan: []1. SBO: clinical improving with increased pain likely rebound 2/2 decreased narcotics - repeat abd. x-ray today, if resolution then will advance diet and switch to PO PRN pain meds 2. Pain: likely related to increased gas @ hernia - trial simethicone - resume home Fent. patch dose of 125 mcg q72hrs - reviewed importance of ambulating, suggest TID Dispo: hopeful for d/c tomorrow as long as cont.'d resolution and tolerating POs
[2018-12-23] MEDS: Simethicone TAB* 80 MG TAB.CHEW PO PRN (16:22)
[2018-12-23] MEDS ORDERED: Hyoscyamine ER (NF) 0.375 MG TAB PO SCH (21:00)
[2018-12-23] MEDS: Hyoscyamine TAB* 0.125 MG PO PRN (21:17)
[2018-12-23] MEDS: Nicotine Patch Removal NOTE PATCH OFF SCH (21:18)
[2018-12-24] MEDS: HYDROmorphone INJ1* 1 MG/ML SYRINGE IV SLOW PU PRN ×5 (01:11→09:31)
[2018-12-24] MEDS: Ondansetron INJ* 2 MG/ML VIAL IV PRN (05:22)
[2018-12-24] MEDS: Hyoscyamine TAB* 0.125 MG PO PRN ×2 (05:22→13:47)
[2018-12-24] MEDS: D5W 1/2 NS KCl 20 Meq 1000 ML* 1,000 ML IV SCH (05:31)
[2018-12-24] MEDS: fentaNYL Patch Check Q Shift 1 NOTE FOLLOW UP SCH (07:29)
[2018-12-24] MEDS: Enoxaparin(*) 100 MG/ML SYR SUBCUT SCH (09:30)
[2018-12-24] MEDS: Meclizine TAB* 12.5 MG PO SCH (09:31)
[2018-12-24] MEDS: Nicotine PATCH 21 MG/24 HR* PATCH TRANSDERM SCH (09:36)
[2018-12-24] MEDS: Simethicone TAB* 80 MG TAB.CHEW PO PRN (09:43)
--- NOTE | 2018-12-24 10:14 | PN ---
Progress Note - Progress Note Date of Service: 12/24/18 SOAP: Subjective: [] Objective: [] Assessment: []33 yo male with metastatic colorectal cancer with recurrent SBO @ known umbilical hernia. Appears to be improving with bowel rest, however persistent obstructive pattern on imaging. Plan: []
[2018-12-24] MEDS ORDERED: Calcium Carbonate CHEW TAB* 500 MG (TUMS) PO PRN (11:47)
[2018-12-24] MEDS ORDERED: HYDROmorphone TAB* 4 MG PO PRN (12:00)
[2018-12-24] MEDS: Metoclopramide IV* 5 MG/ML 2 ML VIAL IV SLOW PU PRN (12:04)
[2018-12-24 12:29] VITALS: BP 127/76
[2018-12-24 12:43] LABS: Albumin 3.3 g/dL (3.2-5.2); Albumin/Globulin Ratio 1.3 (1-3); BUN/Creatinine Ratio 6.6 (8-20); Calcium 8.6 mg/dL (8.6-10.3); EGFR Non-African American 150.4 (>60); Globulin 2.6 g/dL (2-4); Potassium 3.6 mmol/L (3.5-5.0); Total Bilirubin 0.7 mg/dL (0.2-1.0); Total Protein 5.9 g/dL (6.4-8.9)
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
== END 2018-12-24 14:06 | disposition home or self-care (01) | DRG 254 ==
LOC: ED 13:53 → MED 18:04
PROVIDERS: ADMIT Internal Medicine; ATTEND Internal Medicine Hematology & Oncology
DX: K42.0 Umbilical hernia with obstruction, without gangrene (principal); C18.9 Malignant neoplasm of colon, unspecified; C78.7 Secondary malignant neoplasm of liver and intrahepatic bile duct; F41.9 Anxiety disorder, unspecified; F32.9 Major depressive disorder, single episode, unspecified; J45.909 Unspecified asthma, uncomplicated; G89.29 Other chronic pain; M54.9 Dorsalgia, unspecified; Z72.0 Tobacco use; Z86.711 Personal history of pulmonary embolism; Z79.01 Long term (current) use of anticoagulants; Z79.891 Long term (current) use of opiate analgesic; Z88.8 Allergy status to other drugs, medicaments and biological substances; Z80.0 Family history of malignant neoplasm of digestive organs; Z92.21 Personal history of antineoplastic chemotherapy; Z80.42 Family history of malignant neoplasm of prostate; I25.2 Old myocardial infarction; Z82.49 Family history of ischemic heart disease and other diseases of the circulatory system
CPT/HCPCS: 36415; 74019; 74177; 80053; 83605; 83690; 85025; 99233; 99239; 99284; A9270-GY; J1170; J1650; J2405; J2765; Q9967

== ENCOUNTER 2019-01-11 12:29 | Inpatient (IN) | payer OTHER ==
[2019-01-11] MEDS ORDERED: LORazepam INJ* 2 MG/ML 1 ML VIAL IV PUSH PRN (12:34)
[2019-01-11] MEDS ORDERED: Lorazepam PYXIS KEY PRN (12:34)
[2019-01-11] MEDS: NS 0.9% 1000 ML** 1,000 ML IV SCH ×2 (13:45→22:11)
[2019-01-11] MEDS ORDERED: Zolpidem TAB* 5 MG PO PRN (13:56)
[2019-01-11] MEDS ORDERED: Hyoscyamine TAB* 0.125 MG PO PRN (13:56)
[2019-01-11] MEDS ORDERED: Simethicone TAB* 80 MG TAB.CHEW PO PRN (13:56)
[2019-01-11] MEDS ORDERED: fentaNYL PATCH 50 MCG/HR TRANSDERM SCH (14:00)
[2019-01-11] MEDS ORDERED: fentaNYL PATCH 75 MCG/HR* 75 MCG TRANSDERM SCH (14:00)
[2019-01-11] MEDS: Famotidine IV* 10 MG/ML 2 ML (20 mg) IV SLOW PU SCH (14:51)
[2019-01-11] MEDS: Meclizine TAB* 12.5 MG PO SCH ×2 (14:51→20:55)
[2019-01-11] MEDS: HYDROmorphone INJ1* 1 MG/ML SYRINGE IV SLOW PU PRN ×3 (14:56→23:14)
[2019-01-11] MEDS ORDERED: Enoxaparin(*) 100 MG/ML SYR SUBCUT SCH (15:00)
[2019-01-11] MEDS: fentaNYL Patch Check Q Shift 1 NOTE FOLLOW UP SCH (18:55)
[2019-01-11] MEDS: Ondansetron INJ* 2 MG/ML VIAL IV PRN ×2 (19:32→23:20)
[2019-01-11] MEDS: Nicotine PATCH 14 MG/24 HR* PATCH TRANSDERM SCH (20:54)
[2019-01-12] MEDS: HYDROmorphone INJ1* 1 MG/ML SYRINGE IV SLOW PU PRN ×6 (03:27→22:33)
[2019-01-12] MEDS: Ondansetron INJ* 2 MG/ML VIAL IV PRN ×4 (03:27→19:25)
[2019-01-12 05:40] LABS: ABS Eosinophils 0.1 10^3/ul (0-0.6); ABS Lymphocytes 0.7 10^3/ul (1.0-4.8); ABS Monocytes 0.3 10^3/ul (0-0.8); ABS Neutrophils 2.4 10^3/ul (1.5-7.7); Eosinophil % 2.4 %; Hematocrit 26 % (42-52); Hemoglobin 8.8 g/dL (14.0-18.0); Lymphocyte % 20.5 %; Mean Corpuscular HGB Conc 33 g/dL (31-36); Mean Corpuscular Hemoglobin 29 pg (27-31); Mean Corpuscular Volume 88 fL (80-94); Mean Platelet Volume 8.5 fL (7.4-10.4); Platelet Count 178 10^3/uL (150-450); Red Blood Count 3.01 10^6 /uL (4.18-5.48); Red Cell Distribution Width 17 % (10-15); White Blood Count 3.6 10^3/uL (3.5-10.8)
[2019-01-12 05:57] LABS: Albumin 2.8 g/dL (3.2-5.2); Albumin/Globulin Ratio 1.1 (1-3); BUN/Creatinine Ratio 14.5 (8-20); Calcium 7.5 mg/dL (8.6-10.3); EGFR African American 92.2 (>60); EGFR Non-African American 76.2 (>60); Globulin 2.5 g/dL (2-4); Magnesium 1.7 mg/dL (1.9-2.7); Total Bilirubin 0.3 mg/dL (0.2-1.0); Total Protein 5.3 g/dL (6.4-8.9)
[2019-01-12] MEDS: NS 0.9% 1000 ML** 1,000 ML IV SCH ×3 (06:19→18:31)
[2019-01-12] MEDS: fentaNYL Patch Check Q Shift 1 NOTE FOLLOW UP SCH ×2 (06:46→19:16)
[2019-01-12] MEDS: Meclizine TAB* 12.5 MG PO SCH ×3 (08:01→22:34)
[2019-01-12] MEDS: Famotidine IV* 10 MG/ML 2 ML (20 mg) IV SLOW PU SCH (08:01)
[2019-01-12] MEDS: Nicotine PATCH 14 MG/24 HR* PATCH TRANSDERM SCH (08:03)
[2019-01-12] MEDS ORDERED: Enoxaparin(*) 100 MG/ML SYR SUBCUT SCH (09:00)
[2019-01-12] MEDS ORDERED: Magnesium Sulfate 2 GM IV* 2 GM/50 ML BAG IVPB ONE (09:35)
[2019-01-12] MEDS: KCL 20 MEQ/100 ML IVPREMIX* 20 MEQ/100 ML BAG IV SCH ×2 (10:11→13:08)
[2019-01-12 10:29] LABS: Hematocrit 26 % (42-52); Hemoglobin 8.7 g/dL (14.0-18.0)
[2019-01-12] MEDS ORDERED: Midazolam* 1 MG/ML 10 ML VIAL (10 MG) ONE (17:15)
[2019-01-12] MEDS ORDERED: fentaNYL* 50 MCG/ML 2 ML VIAL (100 MCG VIAL) ONE (17:15)
[2019-01-12] MEDS ORDERED: Nicotine Patch Removal NOTE PATCH OFF SCH (21:00)
--- NOTE | 2019-01-12 21:07 | CONS ---
GASTROENTEROLOGY CONSULT: DATE OF CONSULT: 01/12/19 CONSULTING PHYSICIAN: Jose Gregorio. REASON FOR CONSULT: Fall in hemoglobin with recent observation of dark tarry stool and BUN going to 30 on 01/04/19. HISTORY: This 33-year-old man who had surgery for right colon cancer widely metastatic in over half of 50 lymph nodes, recently has been undergoing maintenance chemotherapy. He has left hip pain and takes Aleve daily. He also takes Lovenox 120 mg twice a day. He takes Protonix every morning and ranitidine, frequency unclear. He is listed as having a past history of blood clots, past diverticulitis (4-5 years ago) and an abdominal incisional hernia that is painful and has caused bowel obstruction. He was just hospitalized here with bowel obstruction attributed to his abdominal hernia. PAST MEDICAL HISTORY: 1. Ram syndrome. 2. Status post full mouth extraction. 3. Metastatic colon cancer - diagnosed 2016 see [facility] admission notes for details. MEDICATIONS: Home medications reviewed - see [facility] notes, which includes: Fentanyl Senna Zyprexa. ALLERGIES: PROCHLORPERAZINE. FAMILY HISTORY: Multiple paternal relatives with cancer at young ages. SOCIAL HISTORY: He is . He is of [place] and [place] ancestry. 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 REVIEW OF SYSTEMS: No history of cardiac or pulmonary, hepatic or renal disease. He has been receiving FOLFOX chemotherapy. He has not had pancytopenia with it. He did have tarry stool for a couple of days about 10 days ago. PHYSICAL EXAM: He is a somewhat chronically ill-appearing bald young man with protuberant abdomen. He does not have an NG tube. HEENT: Unremarkable. Lungs : Show some rhonchi. He is not short of breath. Heart: Sounds are regular. Abdomen: Distended with multiple incisions. They are fully healed. He is tender in the central abdomen generally. Rectal: Deferred. DIAGNOSTIC STUDIES/LAB DATA: Lab review - a rise in BUN 01/01/19 through the with his hemoglobin falling just in the last few days in conjunction with being admitted and hydrated. IMPRESSION: This 33-year-old man with metastatic colon cancer on chemo who takes Aleve and enoxaparin has been taking proton pump inhibitor concurrently. He did have some coffee-ground emesis in the last few days and dark tarry stool within the last few weeks. Upper endoscopy is indicated. [id number]/[facility] #: [id number] ENRIQUE
--- NOTE | 2019-01-12 23:43 | PRO ---
DATE: 01/12/19 - ROOM #333 REFERRING PHYSICIAN: Jose Gregorio.* PROCEDURE: Upper gastrointestinal endoscopy. INDICATION: This 33-year-old man with widely metastatic colon cancer, was admitted with coffee-ground emesis and a fall in his hemoglobin, baseline in the upper 11s to 12s to 8.7. See preprocedure consult. ENDOSCOPIST: Dr. Mckeon. MEDICATIONS: Midazolam 20, fentanyl 200. The patient conversant, cooperative, and having no trouble with the procedure, though conversational within seconds of scope withdrawal. FINDINGS: He is a chronically ill-appearing young man in no overt distress. EGD: Larynx - not seen. Esophagus - easily entered, the mucosa is normal in the upper, mid, and lower esophagus with the EG junction snug at 40. There is a question of a minimal healed erosion at 3 o'clock at the EG junction. There is no exudate or erosion per se. There was no fundic prolapse or hiatal hernia. Stomach - normal mucosa in the cardia, fundus, body, and antrum. No blood was seen. No erosions or healed scars were seen. Duodenum - the pylorus and bulb were normal. The second portion of the duodenum appeared normal. In the third and fourth portion, there was a subtle furrowing but no erosions and no erythema or potential bleeding source. It is estimated that 10 cm of jejunum were seen. During withdrawal, there were no additional findings. IMPRESSION: 1. Normal EGD. 2. Subtle mucosal abnormality of the small bowel. 3. History of coffee-ground emesis - suspect minimal Dorie-Chambers tear versus observational false positive - misinterpretation by patient. 4. Melena and raise in BUN - possibly from lesion distal to the area seen. [id number]/[facility] #: [id number] [facility]
[2019-01-13] MEDS: Ondansetron INJ* 2 MG/ML VIAL IV PRN ×4 (01:30→13:43)
[2019-01-13] MEDS: HYDROmorphone INJ1* 1 MG/ML SYRINGE IV SLOW PU PRN ×3 (01:33→08:41)
[2019-01-13] MEDS: NS 0.9% 1000 ML** 1,000 ML IV SCH ×2 (02:37→10:47)
[2019-01-13] MEDS: fentaNYL Patch Check Q Shift 1 NOTE FOLLOW UP SCH (06:39)
[2019-01-13 06:57] LABS: ABS Eosinophils 0.1 10^3/ul (0-0.6); ABS Lymphocytes 0.6 10^3/ul (1.0-4.8); ABS Monocytes 0.3 10^3/ul (0-0.8); ABS Neutrophils 2.3 10^3/ul (1.5-7.7); Hematocrit 25 % (42-52); Hemoglobin 8.4 g/dL (14.0-18.0); Lymphocyte % 18.8 %; Mean Corpuscular HGB Conc 33 g/dL (31-36); Mean Corpuscular Hemoglobin 29 pg (27-31); Mean Corpuscular Volume 88 fL (80-94); Mean Platelet Volume 8.7 fL (7.4-10.4); Platelet Count 161 10^3/uL (150-450); Red Blood Count 2.85 10^6 /uL (4.18-5.48); Red Cell Distribution Width 17 % (10-15); White Blood Count 3.3 10^3/uL (3.5-10.8)
[2019-01-13 07:13] LABS: BUN/Creatinine Ratio 9.5 (8-20); Calcium 7.5 mg/dL (8.6-10.3); EGFR African American 125.8 (>60); Potassium 3.3 mmol/L (3.5-5.0)
[2019-01-13] MEDS: Famotidine IV* 10 MG/ML 2 ML (20 mg) IV SLOW PU SCH (08:40)
[2019-01-13] MEDS: Nicotine PATCH 14 MG/24 HR* PATCH TRANSDERM SCH (08:41)
[2019-01-13] MEDS: Meclizine TAB* 12.5 MG PO SCH ×2 (08:48→13:43)
[2019-01-13] MEDS ORDERED: Influenza VAC *QUAD* 2019-20* 0.5 ML SYRINGE IM ONE (09:00)
[2019-01-13] MEDS: KCL 20 MEQ/100 ML IVPREMIX* 20 MEQ/100 ML BAG IV SCH ×2 (11:38→13:43)
[2019-01-13] MEDS: HYDROmorphone TAB* 4 MG PO PRN ×3 (11:43→17:50)
[2019-01-13 15:58] VITALS: BP 124/85
--- NOTE | 2019-01-13 17:54 | DS ---
- Discharge Summary Admission Date: 01/11/19 Discharge Date: 01/13/19 Discharge Diagnosis: 1. Recurrent small bowel obstruction: improved with medical management 2. GI bleed: presumed 2/2 lesion, EGD negative 3. Pain: resume home meds 4. VTE: hold anti-coagulation d/t bleed Discharge Medications: Medication Instructions Recorded Confirmed Type Ondansetron TAB* [Zofran 4 MG Tab*] 4 mg PO Q6H PRN #90 tab 02/18/18 01/11/19 Rx Hyoscyamine Sulfate 0.125 mg SL Q4HR PRN 08/19/18 01/11/19 History Meclizine TAB* [Antivert 12.5 TAB*] 25 mg PO TID 08/19/18 01/11/19 History Pantoprazole TAB * [Protonix TAB*] 40 mg PO DAILY 08/19/18 01/11/19 History Zolpidem TAB* [Ambien*] 5 mg PO BEDTIME PRN 08/19/18 01/11/19 History Docusate CAP* [Colace Cap*] 100 mg PO BEDTIME PRN 09/08/18 01/11/19 History Lidocaine 2% JELLY* 1 applic TOPICAL SEE INSTRUCTIONS 09/08/18 01/11/19 History PRN Menthol/Camphor [Icy Hot Advanced 1 applic TOPICAL DAILY PRN 09/08/18 01/11/19 History Relief Cream] Calcium Carbonate CHEW TAB* [Tums*] 500 mg PO Q4H PRN tab.chew 12/24/18 Rx Simethicone TAB* [Mylicon TAB*] 80 mg PO Q6H PRN tab.chew 12/24/18 01/11/19 Rx fentaNYL PATCH 50 MCG/HR* 50 mcg TRANSDERM Q72H patch 12/24/18 01/11/19 Rx [Duragesic PATCH 50 Mcg/Hr*] fentaNYL PATCH 75 MCG/HR* 75 mcg TRANSDERM Q72H patch 12/24/18 01/11/19 Rx [Duragesic PATCH 75 Mcg/Hr*] HYDROmorphone TAB* [Dilaudid Tab*] 6 mg PO Q3HR PRN MDD 12 Tabs 01/11/19 History Ranitidine TAB (NF) [Zantac TAB 150 mg PO BID 01/11/19 01/11/19 History (NF)] Senna TAB 8.6 mg* [Senokot 8.6 mg 1 tab PO BEDTIME PRN 01/11/19 01/11/19 History TAB*] Nicotine PATCH 14 MG/24 HR* 1 patch TRANSDERM DAILY patch 01/13/19 Rx STOP Lovenox Disposition: Home Condition: Stable Activity: As tolerated Diet: low residual Hospital Course: Please see admission note for full H&P, however, briefly, Mr. Sepulveda is well known to our service due to his unfortunate diagnosis of metastatic colon cancer currently on second line therapy with FOLFIRI. He presented to the office on 01/11/19 with approx. 4 days of progressive nausea, vomiting, and abd. pain. An abdominal x-ray revealed a recurrent small bowel obstruction. He was admitted for medical management including IV fluids and bowel rest. On admission Mr. Roches Lovenox was dose adjusted due to his recent wt. loss. On the morning of 01/12/19 his hemoglobin had dropped from 11.9 to 8.8, and he reported one episode of coffee ground emesis prior to admission. His Lovenox was held and a stool occult blood test was positive and GI was consulted. Dr. Pandya of GI performed an EGD that afternoon, this was unremarkable. His hmg. has remained stable, now 8.4 this AM. This AM Mr. Sepulveda was seen by Dr. Gregorio at which time he noted some improvement in his symptoms with less nausea and passing of bowels. His meds were transitioned to PO and his diet was advanced. He has tolerated all of this very well and is anxious to go home. At this time he is stable for d/c with improvement in his small bowel obstruction symptoms and stabilization of his hmg. He will be d/c'd home back on his normal home meds, however we will continued to hold his Lovenox for now. Mr. Sepulveda will follow-up in our office as previously planned on 01/18 for his next round of chemo. - Nutrition: Malnutrition Diagnosis/Plan Nutrition: Malnutrition Diagnosis/Plan: Malnutrition Assessment Clinical Characteristics Acute,Moderate Malnutrition Assessment: - po intake < 75% EEE for > 7 days Criteria - wt loss 11.9% within past one month Malnutrition Assessment: - bowel rest; NPO per MD orders Interventions - IVFs, abx - electrolyte repletion as needed - slowly progress diet to toward full liquids + liquid supplements as able - pt wanting surgical option; has discussed this w/Dr Gregorio and oncology team Malnutrition Assessment: Goals 1. pt will tolerate gradual diet progression without adverse GI effects 2. adequate po intake to maintain lean body mass and hydration without add'l wt loss 3. achieve and maintain serum electrolytes levels WNL 4. achieve and maintain regulated bowel pattern without c/o constipation (or diarrhea)
== END 2019-01-13 18:00 | disposition home or self-care (01) | DRG 254 ==
LOC: SSU 14:25
PROVIDERS: ADMIT Internal Medicine Hematology & Oncology; ATTEND Internal Medicine Hematology & Oncology
PROC: 0DJ08ZZ Inspection of Upper Intestinal Tract, Via Natural or Artificial Opening Endoscopic (ICD-10-PCS; principal; 2019-01-12)
DX: K46.0 Unspecified abdominal hernia with obstruction, without gangrene (principal); C18.9 Malignant neoplasm of colon, unspecified; E44.0 Moderate protein-calorie malnutrition; C77.2 Secondary and unspecified malignant neoplasm of intra-abdominal lymph nodes; K92.1 Melena; K63.89 Other specified diseases of intestine; F17.210 Nicotine dependence, cigarettes, uncomplicated; Z23 Encounter for immunization; Z72.89 Other problems related to lifestyle; Z88.8 Allergy status to other drugs, medicaments and biological substances; Z92.21 Personal history of antineoplastic chemotherapy; Z80.9 Family history of malignant neoplasm, unspecified; Z68.29 Body mass index [BMI] 29.0-29.9, adult
CPT/HCPCS: 36415; 74018; 80048; 80053; 82272; 83735; 85014; 85018; 85025; 90686; 93005; 99156; 99157; 99222; 99239; 99406; A9270-GY; J1170; J1642; J1650; J2060; J2250; J2405; J3010; J3475; J3480

== ENCOUNTER 2019-01-30 10:47 | Inpatient (IN) | payer OTHER ==
[2019-01-30] MEDS ORDERED: NS 0.9% 1000 ML** 1,000 ML IV ONE (11:21)
[2019-01-30] MEDS ORDERED: HYDROmorphone INJ1* 1 MG/ML SYRINGE IV SLOW PU ONE (11:21)
--- NOTE | 2019-01-30 11:21 | ED ---
Abdominal Pain/Male - HPI Summary HPI Summary: Patient is a 33 y/o M w/ Hx of colon cancer with metastases who presents to [facility] with complaints diffuse abdominal pain (worse on left side) and N/V/D. He states that Sx onset last night. Patient reports that he had Hx of colon resection and tumor removal from right side of abdomen around 2-3 years ago. However, cancer metastasized to his left abdomen. Patient is followed by Dr. Gregorio. Last diarrhea episode was around 0700 01/30/19. Pain is characterized as a burning sensation. He states that he has Hx of bowel obstruction with most recent being three weeks ago. Patient reports that he takes Dilaudid at home, 6 mg every 3 hours and has a Fentanyl patch. He reports these medications have not alleviated his pain. Home medications and allergies are reviewed. - History of Current Complaint Chief Complaint: Giuliana Stated Complaint: ABD PAIN AND LUMP ON NECK PER PT Time Seen by Provider: 01/30/19 11:13 Hx Obtained From: Patient Onset/Duration: Lasting Days, Still Present Timing: Constant, Lasting Days Severity Currently: Severe Pain Intensity: 10 Pain Scale Used: 0-10 Numeric Location: Diffuse Character: Burning Associated Signs And Symptoms: Positive: Nausea, Vomiting, Diarrhea - Allergies/Home Medications Allergies/Adverse Reactions: Allergies Allergy/AdvReac Type Severity Reaction Status Date / Time prochlorperazine Allergy Shakes Verified 01/30/19 10:56 [From Compazine] Home Medications: Home Medications LORazepam [Ativan 0.5 MG TAB] 0.5 mg PO QID 01/30/19 [History Confirmed 01/30/19 ] PMH/Surg Hx/FS Hx/Imm Hx Endocrine/Hematology History: Denies: Hx Diabetes, Hx Thyroid Disease Cardiovascular History: Reports: Hx Embolism - PE, Hx Myocardial Infarction Denies: Hx Congestive Heart Failure, Hx Deep Vein Thrombosis, Hx Hypertension , Hx Pacemaker/ICD Respiratory History: Reports: Hx Asthma - subsided when child, Hx Pulmonary Embolism Denies: Hx Chronic Obstructive Pulmonary Disease (COPD), Hx Lung Cancer, Hx Pneumonia, Hx Seasonal Allergies GI History: Reports: Hx Gastrointestinal Bleed, Hx Obstructive Bowel - SBO 2018., Hx Ulcer, Other GI Disorders - colon CA stage 4. Diverticulitis, Ventral Hernia with obstruction or gangre Denies: Hx Gall Bladder Disease, Hx Urosepsis History: Denies: Hx Dialysis, Hx Kidney Stones, Hx Renal Disease Musculoskeletal History: Denies: Hx Arthritis, Hx Osteoporosis Sensory History: Reports: Hx Contacts or Glasses Denies: Hx Hearing Aid Opthamlomology History: Reports: Hx Contacts or Glasses Neurological History: Denies: Hx Dementia, Hx Migraine, Hx Seizures, Hx Transient Ischemic Attacks (TIA) Psychiatric History: Reports: Hx Anxiety, Hx Depression Denies: Hx Panic Disorder, Hx Schizophrenia, Hx Bipolar Disorder - Cancer History Cancer Type, Location and Year: STAGE 4 COLON CANCER 2017 Hx Chemotherapy: Yes - Surgical History Surgery Procedure, Year, and Place: hand surgery,. colon resection Hx Anesthesia Reactions: No Infectious Disease History: No Infectious Disease History: Denies: Hx Clostridium Difficile, Hx Hepatitis, Hx Human Immunodeficiency Virus (HIV), Hx of Known/Suspected MRSA, Hx Shingles, Hx Tuberculosis, Hx Known/ Suspected VRE, Hx Known/Suspected VRSA, History Other Infectious Disease, Traveled Outside the [place] in Last 30 Days - Family History Known Family History: Positive: Cardiac Disease - WPW in family, Hypertension - Social History Alcohol Use: Occasionally Substance Use Type: Reports: None Substance Use Comment - Amount & Last Used: for medical reasons Smoking Status (MU): Heavy Every Day Tobacco Smoker Type: Cigarettes Amount Used/How Often: 1 pk a day Length of Time of Smoking/Using Tobacco: 19 YRS Review of Systems Negative: Fever - on vitals, temp is 98.4 F Positive: Abdominal Pain, Vomiting, Diarrhea, Nausea All Other Systems Reviewed And Are Negative: Yes Physical Exam - Summary Physical Exam Summary: VITAL SIGNS: Reviewed. GENERAL: Patient is a well-developed and nourished male who is lying in the stretcher. He is older-looking for his actual age. Pale appearing. Patient is not in any acute respiratory distress. HEAD AND FACE: No signs of trauma. No ecchymosis, hematomas or skull depressions. No sinus tenderness. EYES: PERRLA, EOMI x 2, No injected conjunctiva, no nystagmus. EARS: Hearing grossly intact. Ear canals and tympanic membranes are within normal limits. MOUTH: Oropharynx within normal limits. NECK: Supple, trachea is midline, no adenopathy, no JVD, no carotid bruit, no c- spine tenderness, neck with full ROM. CHEST: Symmetric, no tenderness at palpation. LUNGS: Clear to auscultation bilaterally. No wheezing or crackles. CVS: Regular rate and rhythm, S1 and S2 present, no murmurs or gallops appreciated. ABDOMEN: Soft, tender to palpation. Abdomen is distended. No rebound, no guarding, and no masses palpated. Bowel sounds are decreased. EXTREMITIES: FROM in all major joints, no edema, no cyanosis or clubbing. NEURO: Alert and oriented x 3. No acute neurological deficits. Speech is normal and follows commands. SKIN: Dry and warm. Triage Information Reviewed: Yes Vital Signs On Initial Exam: Initial Vitals Temp Pulse Resp BP Pulse Ox 98.4 F 145 18 134/84 100 01/30/19 10:52 01/30/19 10:52 01/30/19 10:52 01/30/19 10:52 01/30/19 10:52 Vital Signs Reviewed: Yes Procedures - Sedation Patient Received Moderate/Deep Sedation with Procedure: No Diagnostics - Vital Signs Vital Signs Temp Pulse Resp BP Pulse Ox 01/30/19 10:52 98.4 F 145 18 134/84 100 - Laboratory Result Diagrams: 01/30/19 11:40 01/30/19 11:40 Lab Statement: Any lab studies that have been ordered have been reviewed, and results considered in the medical decision making process. - CT ABD/PEL CT CT Interpretation Completed By: Radiologist Summary of CT Findings: IMPRESSION: Findings consistent with small bowel obstruction. Small foci of free air is noted anterior to the liver. Localized perforation cannot BE. excluded. Focal areas of wall thickening are noted in the upper large abdominal wall. hernia. There is free air noted in the hernia sac suggestive of a perforation in the small. bowel in the anterior abdominal wall hernia.. In addition there is some more inferior. hernia containing small bowel which may be causing bowel obstruction. Retroperitoneal and left pelvic adenopathy. THIS REPORT WAS REVIEWED BY DR. PRADO. Abdominal Pain Male Course/Dx - Course Assessment/Plan: Patient is a 33-year-old male who presents to the emergency department with a chief complaint diffuse abdominal pain but mostly in the left side of the abdomen. Bloodwork without any significant abnormality except for slight anemia with hemoglobin of 10.4 hematocrit 31, creatinine is 1.26, glucose is 111, lactic acid is 3.9, calcium is 8.2, magnesium was 1.2, AST is 11 , CRP is 84, albumin 2.8. In the ED course the patient was given magnesium IV. ABdominal and pelvic CT IMPRESSION: Findings consistent with small bowel obstruction. Small foci of free air is noted anterior to the liver. Localized perforation cannot BE excluded. Focal areas of wall thickening are noted in the upper large abdominal wall hernia. There is free air noted in the hernia sac suggestive of a perforation in the small bowel in the anterior abdominal wall hernia.. In addition there is some more inferior hernia containing small bowel which may be causing bowel obstruction. I discussed my physical exam and findings with Dr. Mendoza recommends an NG tube, Lu catheter, Zosyn and Flagyl. He also requests were made to contact Dr. Del Cid from oncology for admission. I discussed my physical exam and findings with Dr. Del Cid from oncology and he agrees to admit the patient to his services for further workup and management. The patient is hemodynamically stable at this time. - Diagnoses Provider Diagnoses: Small bowel perforation, Small bowel obstruction, Hypomagnesemia - Provider Notifications Discussed Care Of Patient With: Claudio Mendoza Time Discussed With Above Provider: 12:18 Instructed by Provider To: Other - Patient's case was discussed with Dr. Mendoza. Dr. Mendoza recommends NG tube, Lu cath, Zosyn, Flagyl, and admission to oncology services. 1221 - Patient's case was discussed with Dr. Del Cid, Dr. Del Cid accepts for admission. Discharge ED - Sign-Out/Discharge Documenting (check all that apply): Patient Departure - admit - Discharge Plan Condition: Fair Disposition: ADMITTED TO [facility] - Billing Disposition and Condition Condition: FAIR Disposition: Admitted to [facility] - Attestation Statements Document Initiated by Magalis: Yes Documenting Scribe: DARI ROSS Provider For Whom Magalis is Documenting (Include Credential): LAMBERTO PRADO MD Scribe Attestation: I, DARI ROSS, scribed for LAMBERTO PRADO MD on 01/30/19 at 2134. Scribe Documentation Reviewed: Yes Provider Attestation: The documentation as recorded by the DARI sauceda accurately reflects the service I personally performed and the decisions made by me, LAMBERTO PRADO MD Status of Scribe Document: Viewed
[2019-01-30] MEDS ORDERED: Iohexol 300* (CONTRAST) 10 ML SDV IV ONE (11:43)
[2019-01-30 11:48] LABS: Hematocrit 31 % (42-52); Hemoglobin 10.4 g/dL (14.0-18.0); Mean Corpuscular HGB Conc 33 g/dL (31-36); Mean Corpuscular Hemoglobin 30 pg (27-31); Mean Corpuscular Volume 90 fL (80-94); Mean Platelet Volume 8.8 fL (7.4-10.4); Platelet Count 195 10^3/uL (150-450); Red Blood Count 3.46 10^6 /uL (4.18-5.48); Red Cell Distribution Width 19 % (10-15); White Blood Count 3.5 10^3/uL (3.5-10.8)
[2019-01-30 12:09] LABS: Albumin 2.8 g/dL (3.2-5.2); Albumin/Globulin Ratio 1.1 (1-3); BUN/Creatinine Ratio 15.9 (8-20); C Reactive Protein 84.3 mg/L (<8.01); Calcium 8.3 mg/dL (8.6-10.3); EGFR African American 78.8 (>60); EGFR Non-African American 65.1 (>60); Globulin 2.6 g/dL (2-4); Magnesium 1.2 mg/dL (1.9-2.7); Potassium 3.6 mmol/L (3.5-5.0); Total Bilirubin 0.5 mg/dL (0.2-1.0); Total Protein 5.4 g/dL (6.4-8.9)
[2019-01-30] MEDS ORDERED: Magnesium Sulfate 2 GM IV* 2 GM/50 ML BAG IVPB ONE (12:16)
[2019-01-30 12:18] LABS: ABS Lymphocytes 0.3 10^3/ul (1.0-4.8); ABS Monocytes 0.5 10^3/ul (0-0.8); ABS Neutrophils 2.6 10^3/ul (1.5-7.7); Eosinophil % 0.2 %
[2019-01-30] MEDS ORDERED: Piperacillin/Tazobac ADVAN(*) 3.375 GM in NS 0.9% 100 ML* 100 ML IVPB ONE ×2 (12:26→15:51)
[2019-01-30] MEDS ORDERED: metroNIDAZOLE IV 500 MG/100ML* 500 MG/100 ML BAG IVPB ONE (12:27)
[2019-01-30] MEDS ORDERED: fentaNYL* 50 MCG/ML 2 ML VIAL (100 MCG VIAL) ONE ×2 (13:11→15:34)
[2019-01-30] MEDS ORDERED: Midazolam* 1 MG/ML 5 ML VIAL (5 MG) ONE (13:11)
[2019-01-30] MEDS ORDERED: Rocuronium* 10 MG/ML VIAL ONE (13:59)
[2019-01-30] MEDS ORDERED: Succinylcholine* 20 MG/ML 10 ML VIAL ONE (14:00)
[2019-01-30] MEDS ORDERED: Phenylephrine 10 MG/ML VIAL* 1 ML VIAL ONE (14:07)
[2019-01-30] MEDS ORDERED: Dexamethasone IV* 4 MG/ML 1 ML (4 MG) ONE (14:10)
[2019-01-30] MEDS ORDERED: Ketorolac INJ* 30 MG/ML 1 ML VIAL ONE (14:10)
[2019-01-30] MEDS ORDERED: Propofol* 10 MG/ML 20 ML BTL ONE (14:10)
[2019-01-30] MEDS ORDERED: Ondansetron INJ* 2 MG/ML VIAL ONE (14:10)
[2019-01-30] MEDS ORDERED: DiMENhydriNATE IV* 50 MG/ML VIAL ONE (14:10)
[2019-01-30] MEDS ORDERED: Lactated Ringers 1000 ML Bag* 1,000 ML IV ONE (15:52)
[2019-01-30] MEDS ORDERED: Lidocaine 2% JELLY* 6 ML JELLY TOPICAL PRN (15:53)
[2019-01-30] MEDS ORDERED: Ondansetron INJ* 2 MG/ML VIAL IV PRN ×3 (15:56→18:35)
[2019-01-30] MEDS ORDERED: HYDROmorphone INJ* 0.5 MG/0.5 ML SYRINGE IV SLOW PU PRN (15:56)
[2019-01-30] MEDS ORDERED: fentaNYL PATCH 50 MCG/HR TRANSDERM SCH (16:00)
[2019-01-30] MEDS ORDERED: Zosyn per Pharmacy* NOTE FOLLOW UP SCH (16:00)
[2019-01-30] MEDS ORDERED: metroNIDAZOLE IV 500 MG/100ML* 500 MG/100 ML BAG IVPB SCH (16:00)
--- NOTE | 2019-01-30 16:47 | HP ---
CC: Dr. Jose rGegorio; [facility]; Dr. Chris Appiah * HISTORY AND PHYSICAL: DATE OF ADMISSION: 01/30/19 HISTORY OF PRESENT ILLNESS: I was contacted by the ER staff regarding Mr. Sepulveda, a 33-year-old gentleman with a Ram syndrome and aggressive colon cancer, who underwent laparoscopic converted to open right hemicolectomy at [facility] in July 2016. He was noted to have T2N2b disease and he was treated with chemotherapy and currently is on FOLFOX. He developed a large abdominal wall hernia in the postoperative period, but has not been repaired. He has also been on radiation therapy for what sounds to be spinal lesions. The patient has been dealing with intermittent small bowel obstructions whether secondary to the hernia or not it is unclear. This is the first time I see the patient. He presented to the emergency room with almost 1-day history of abdominal pain along with a couple episodes of vomiting. The patient had similar diagnosis of small bowel obstruction in December of this year and was treated nonoperatively with admission to the oncology service. At this time, however, the patient had significant amount of abdominal pain and he had difficult time getting comfortable. In the emergency room, workup including labs and CAT scan was consistent with obstruction within the hernia as well as free air localized within the mesentery and also around the hernia sac. These images were reviewed. There is free fluid, dilated small bowel and normal appearing colon. I discussed the case with Dr. Obi Del Cid, Dr. Gregorio's partner. I asked him to see and evaluate the patient to see if this patient was appropriate for surgery. He did not raise any concerns to me. PAST MEDICAL HISTORY: Digit deformities and colon cancer, blood clots, and diverticulitis. MEDICATIONS: List reviewed and consist of: 1. Ativan. 2. Dilaudid. 3. Fentanyl patch. 4. Senna. 5. Zantac. 6. Pantoprazole. 7. Zofran. 8. Senokot. 9. FOLFOX, last treatment 12 days ago. ALLERGIES: He is allergic to PROCHLORPERAZINE. FAMILY HISTORY: Noncontributory. SOCIAL HISTORY: He is a smoker, last smoked earlier today. Lives with his . He got 2 children. He has disability. REVIEW OF SYSTEMS: The patient has been dealing with back pain, has been taking ibuprofen approximately 800 mg twice a day for this. He does admit to intermittent shortness of breath, but he is normally able to walk a flight of stairs, he really does not feel like he could do it today. No cardiac disease. He is obese. Abdominal pain as described. Last bowel movement yesterday. He is passing flatus. No dysuria. No endocrine disorders. Other additional 12- point review of systems negative. PHYSICAL EXAMINATION GENERAL: He is alert and oriented x3. He is in mild distress. He is pale, mildly diaphoretic. VITAL SIGNS: The patient is afebrile. Heart rate upon arrival was 145, it is now down to 120, but he remains hypotensive at 90/58, with a MAP of 68, O2 sat 95 on room air with respiration rate of 18. HEAD, EYES, EARS, NOSE, AND THROAT: Normocephalic, atraumatic. Sclerae anicteric. Mucous membranes are dry. LUNGS: Clear. ABDOMEN: Soft, distended and tender with positive guarding, but no rebound. Hernia defect is appreciated, but difficult to evaluate the edges due to some peritoneal signs. No CVA tenderness. RECTAL: Not performed. DIAGNOSTIC STUDIES/LAB DATA: Labs review showed an elevated lactate of 3.9, elevated creatinine 1.26, it was 0.89 just yesterday on a routine set of labs. Elevated CRP, normal lipase, recent elevated CRP. CAT scan reviewed and described above IMPRESSION: Critically ill 33-year-old gentleman on FOLFOX for aggressive colon cancer with metastases, who has been dealing with intermittent small bowel obstruction, possibly secondary to hernia versus additional disease, who has now an acute abdomen and likely has perforation of the small bowel, large bowel, or stomach. My recommendation is exploratory laparotomy. I outlined the details of procedure, going over the risks, benefits, and alternatives. The alternative is watchful waiting and antibiotics were only briefly discussed. I feel this is not recommended at this time. We spoke with possible complications of bleeding , infection, need for additional surgery, prolonged hospitalization, stroke, [place] , clot, PE and even . The patient understands he may get a colostomy. He might have open wound at the end of the procedure. We will be excising his umbilicus in all likelihood. We will probably place a biologic mesh to try to repair the abdominal wall. The patient has NG tube placed. He will get a Lu catheter in the operating room as well as an a-line. PLAN: Emergent surgery for exploratory laparotomy. This will consist of evaluation of a perforation as well as evaluation of the ventral hernia. [id number]/[facility] #: [id number] ENRIQUE
[2019-01-30] MEDS ORDERED: Neostigmine Methylsulfate* 1 MG/ML 10 ML VIAL (1 mg/ml) ONE (17:35)
[2019-01-30] MEDS ORDERED: Glycopyrrolate IV* 0.2 MG/ML 1 ML VIAL ONE (17:35)
[2019-01-30] MEDS ORDERED: Levalbuterol 0.63MG/3ML NEB* UNIT OF USE INH PRN (18:35)
[2019-01-30] MEDS ORDERED: Naloxone* 0.4 MG/ML 1 ML VIAL IV PUSH PRN (18:35)
--- NOTE | 2019-01-30 18:46 | OP ---
Operative Report - Blank - Operative Report Date of Operation: 01/30/19 Note: Pre-OP Diagnoses: Acute abdomen Post-op Diagnosis: perforated SB, ventral hernia, SBO Procedure: Exploratory laparotomy, RASHEL, Small bowel resection, ventral hernia repair with mesh Surgeon: Kelly Asst: none Anesthesia: GINA Guzmán EBL: 200cc IVF: 6800cc crystalloid UO: 800cc Specimen: 1. small bowel 2. hernia sac Drains: NPWT to incision MAGALIS to subQ space
[2019-01-30] MEDS ORDERED: Morphine PCA LOW DOSE* 1 MG/ML 30 ML SYRINGE PCA SCH (19:00)
[2019-01-30] MEDS ORDERED: Morphine PCA ADULT* 5 MG/ML 30 ML PCA SCH (19:00)
[2019-01-30] MEDS: fentaNYL* 50 MCG/ML 2 ML VIAL (100 MCG VIAL) IV PRN ×4 (19:02→19:28)
[2019-01-30] MEDS: Piperacillin/Tazobactam VIAL*) 3.375 GM in NS 0.9% 100 ML* 100 ML IVPB SCH (19:29)
[2019-01-30 21:54] LABS: Hematocrit 28 % (42-52); Hemoglobin 9.5 g/dL (14.0-18.0); Mean Corpuscular HGB Conc 34 g/dL (31-36); Mean Corpuscular Hemoglobin 30 pg (27-31); Mean Corpuscular Volume 90 fL (80-94); Mean Platelet Volume 8.8 fL (7.4-10.4); Platelet Count 156 10^3/uL (150-450); Red Blood Count 3.12 10^6 /uL (4.18-5.48); Red Cell Distribution Width 19 % (10-15); White Blood Count 2.1 10^3/uL (3.5-10.8)
[2019-01-30 22:10] LABS: BUN/Creatinine Ratio 18.1 (8-20); Calcium 7.5 mg/dL (8.6-10.3); EGFR African American 110.5 (>60); EGFR Non-African American 91.3 (>60); Potassium 4.4 mmol/L (3.5-5.0)
[2019-01-30 22:54] LABS: Polychromasia 1+
[2019-01-30 22:55] LABS: ABS Lymphocytes 0.4 10^3/ul (1.0-4.8); ABS Monocytes 0.3 10^3/ul (0-0.8); ABS Neutrophils 1.4 10^3/ul (1.5-7.7); Eosinophil % 0.1 %; Lymphocyte % 17.9 %
[2019-01-30] MEDS: Heparin VIAL(*) 5000 UNITS/ML VIAL (FIVE THOUSAND) SUBCUT SCH (23:18)
--- NOTE | 2019-01-31 00:59 | OP ---
CC: Dr. Jose Gregorio; [facility] * DATE OF OPERATION: 01/30/19 - ROOM #ICU-3 DATE OF : 81 SURGEON: Claudio Mendoza MD. PRECIPITATOR SUPERVISOR: None. ANESTHESIOLOGIST: Dr. Guzmán. ANESTHESIA: General. PRE-OP DIAGNOSIS: Acute abdomen. POST-OP DIAGNOSES: Perforated small bowel, ventral hernia, and small bowel obstruction OPERATIVE PROCEDURE: Exploratory laparotomy, lysis of adhesions, small bowel resection with primary anastomosis, ventral hernia repair with biologic mesh. ESTIMATED BLOOD LOSS: 200 cc. FLUIDS: 1600 cc of crystalloid fluid given. Urine output 800. SPECIMEN: 1. Small bowel. 2. Hernia sac. DRAINS: #10 MAGALIS drain left in the subcutaneous space and a negative pressure wound therapy over the closed staple line at the midline incision. DESCRIPTION OF PROCEDURE: The patient was taken to the operating room and placed on the operating table in a supine position. Preoperative antibiotics had been given in the ER. General anesthesia was then induced. The patient had sequential devices placed on bilateral lower extremities. A Lu catheter was inserted and the abdomen was clipped of hair and prepped and draped in standard surgical fashion. A time-out was performed. Midline incision was made approximately 5 cm from the xiphoid and passing through the previous incision and infraumbilically. This is deepened down to the anterior fascia superiorly and up to the area of the hernia sac at the mid portion. Before getting into the abdomen we did additional sharp dissection through the scar, right down to the hernia sac, through much of the midline incision. We entered the abdomen at the upper portion of the incision. Upon entry to the abdomen there was purulent fluid in the upper portion, extending into the hernia sac inferiorly. We opened up the hernia sac at the mid portion, gently moving small bowel off of this hernia where it was not adhered. It was at this point that we saw 3 other hernias, one just right of midline and another at the umbilicus. The one at the midline showed the most significant amount of the drainage, both foul smelling drainage as well as purulent drainage, but I could not reduce the contents of this site just yet. I turned my attention to the umbilical hernia site. I opened up the hernia sac as we bluntly dissected into this area. I opened it with cautery and we were able to identify the small bowel within this site. This was a sliding hernia and lysis of adhesions was carried out to reduce the small bowel. The small bowel showed some evidence of chronicity with potential stricture at this site, but it was not clear if this was just from secondary to reducing it from this hernia. Next, we were able to run the bowel and extend this towards the right-sided hernia and it was this sac that we opened along the medial aspect to better delineate this. This hernia had edematous small bowel with woody appearance, possibly consistent with cancer, but with also a perforation. We were able to lift this out after removing other contents from this hernia, namely, additional small bowel. Once this hernia came out we isolated the small opening and sutured it close with a single 2-0 silk Additional lysis of adhesions was then carried out throughout the abdomen to bring the small bowel up. It was a significantly dilated and we could run from ligament of Treitz inferiorly to almost the terminal ileum. It was at this point that there was a small area of bowel that was very tightly adhered to the previous anastomosis of the small bowel and colon. Lysis of adhesions was carried out in this site to allow for the terminal ileum to be brought up into our incision. We would require this to perform a resection and anastomosis as this was very close to the edematous bowel that had to be transected that had the perforation. Once this portion of bowel was out we had the full small bowel from ligament of Treitz all the way to the ileocolic anastomosis. The bowel was run and we could see only 1 perforation area with the long segment of diseased intestine. We chose areas proximally and distally from the perforation. Bowel was transected with an 80 mm NATALIE stapling device and the mesentery was taken with LigaSure device. We then protected the wound and brought the 2 portions of bowel in apposition to each other. We opened the proximal bowel and then milked the significant amount of fluid and air down to suction this out, to help with our closure of the abdomen. When this was done, we then went to create the anastomosis. I placed an 80 mm NATALIE stapler through this enterotomy and made a second enterotomy at the distal small bowel. Upon closure, the bowel crushed at the distal portion suggesting that this was still too diseased and additional 2 cm of bowel was then removed and passed off as specimen and the mesentery taken with LigaSure device. We then made another enterotomy at this site and created the small bowel anastomosis with an 80 mm linear GI stapling device. The common defect was closed with a TIA 60 blue stapler and we oversewed the staple line with interrupted 3-0 silk sutures and closed the mesenteric defect with interrupted 2-0 Vicryl and 2-0 silk sutures. The bowel appeared viable as did the anastomosis, wide open. Next, we turned our attention to irrigating of the abdomen. With copious irrigation we removed foul-smelling drainage until the effluent was clear and then dropped the small bowel back into the abdomen. We then removed the wound protector Elian device and set up on evaluating the hernia. Again, there were three hernias in all. The umbilical skin was removed along with its hernia sac at that site. We then removed the large hernia sac on the right, as well at the midline. Flaps were made bilaterally to allow for the fascia to come together. This was cleaned off as best as possible and with flaps made widely we closed the midline incision with running #1 loop PDS suture. The wound was then irrigated and next we placed a 15 x 20 cm biologic XenMatrix mesh over the central portion of the fascial closure and then whip stitched this with first 2-0 Prolene on the left side and then a 2-0 Vicryl on the right side. The wound was again irrigated with good closure and good hemostasis. A #10 MAGALIS drain was brought into separate stab incision and placed on top of the XenMatrix mesh. We then reapproximated the skin incision with skin dominguez, followed by a Prevena negative pressure wound therapy over the staple line. The patient was awoken up in the OR and transferred to the PACU in stable condition. [id number]/[facility] #: [id number] [facility] CENTERDylon
[2019-01-31] MEDS: Piperacillin/Tazobactam VIAL*) 3.375 GM in NS 0.9% 100 ML* 100 ML IVPB SCH ×3 (03:33→19:21)
[2019-01-31] MEDS: NS 0.9% 1000 ML** 1,000 ML IV SCH ×2 (03:43→15:40)
[2019-01-31 05:07] LABS: Hematocrit 27 % (42-52); Hemoglobin 8.6 g/dL (14.0-18.0); Mean Corpuscular HGB Conc 32 g/dL (31-36); Mean Corpuscular Hemoglobin 29 pg (27-31); Mean Corpuscular Volume 91 fL (80-94); Platelet Count 147 10^3/uL (150-450); Red Blood Count 2.93 10^6 /uL (4.18-5.48); Red Cell Distribution Width 20 % (10-15); White Blood Count 2.3 10^3/uL (3.5-10.8)
[2019-01-31 05:26] LABS: BUN/Creatinine Ratio 19.4 (8-20); Calcium 7.4 mg/dL (8.6-10.3); EGFR African American 111.9 (>60); EGFR Non-African American 92.5 (>60); Potassium 4.4 mmol/L (3.5-5.0)
[2019-01-31] MEDS: Heparin VIAL(*) 5000 UNITS/ML VIAL (FIVE THOUSAND) SUBCUT SCH ×3 (05:31→21:20)
[2019-01-31 05:40] LABS: Polychromasia 1+
[2019-01-31 05:43] LABS: ABS Lymphocytes 0.4 10^3/ul (1.0-4.8); ABS Monocytes 0.4 10^3/ul (0-0.8); ABS Neutrophils 1.7 10^3/ul (1.5-7.7); Eosinophil % 0.1 %; Lymphocyte % 14.9 %; Nucleated Red Blood Cells % 0.1
[2019-01-31] MEDS ORDERED: Heparin VIAL(*) 5000 UNITS/ML VIAL (FIVE THOUSAND) SUBCUT SCH (06:00)
[2019-01-31] MEDS ORDERED: Pantoprazole IV* 40 MG IV SCH (09:00)
[2019-01-31] MEDS ORDERED: Naloxone* 0.4 MG/ML 1 ML VIAL IV PUSH PRN (09:06)
--- NOTE | 2019-01-31 09:13 | PN ---
Progress Note - Progress Note Date of Service: 01/31/19 SOAP: Subjective: Pt seen and examined. abdominal pain. no appetite, no flatus Objective: Temp Pulse Resp BP Pulse Ox 97.0 F 101 16 96/60 97 01/31/19 07:39 01/31/19 07:39 01/31/19 07:39 01/31/19 07:39 01/31/19 07:39 UO 300 cc/ 8 hrs a and o x3, in distress lungs course sounds b/l abdo: tense, tender MAGALIS serous NPWT in place no calf tenderness labs noted Assessment: POD1 ex lap, RASHEL, SB resection, repair of ventral hernias Plan: Respiratory distress, concern for compartment syndrome pain control transfer to ICU- case d/w CCM Gi dvt prop
[2019-01-31] MEDS ORDERED: HYDROmorphone PCA* 20 MG/20 ML PCA.SYRING PCA SCH (10:00)
--- NOTE | 2019-01-31 10:37 | CONSULT ---
Consult Consult: 33 y o m with no PMH other than metastatic colon cancer currently on Folfiri also with recurrent small bowel obstruction. He was recently hospitalized from -01/13 for small bowel obstruction that was managed medically. He also was found to have GI bleed likely from malignant lesion, EGD was negative. He was brought into ED today for evaluation of diffuse abdominal pain(worse on left side), N/V/D for 1 day. Patient denied fever, chills, and urinary complaints. Pt had CT of abdomen that showed small bowel obstruction. Patient also noted to have small foci of free air suggestive of perforation. Moderate amounts of free fluid noted in pelvis. No change in retroperitoneal and left external and common iliac adenopathy. Patient was also noted to have elevated lactate at 3.9 with no leukocytosis. H& H is stable. He was also noted to be hypotensive and received fluid resuscitation. Patient was given Zosyn and flagyl. Patient was evaluated by surgery and was taken to OR for exploratory laparotomy. Pt had SB resection, lysis of adhesions and repair of ventral hernia with mesh. Patient was transferred to regular medical floor post surgery. He was noted to have tachypnea, hypoxia this am. He was also transferred to ICU for close monitoring of possible compartment syndrome. Pt seen and examined bedside. Pt reports having significant abd pain inspite of being of Morphine. He has chronic pain and is on dilaudid at home. Reports not being able to take deep breaths due to pain. Denies cough, sputum production. Pt had sales catheter placed for monitoring of UO. PMHx: Metastatic colon cancer dx in 06/2016 Recurrent small bowel obstruction. Ventral hernia without obstruction Diverticulitis Blood clots PSx: Laproscopic rt hemicolectomy 07/2016 All: Prochlorperazine Social Hx: Former smoker, smoked intermittently 1 pack/day for 20 yrs. Occasional ETOH. FHx: Colon cancer at 63-Paternal GF, Pancreatic and colon cancer uncle at age 50 , stomach and colon cancer paternal uncle at 55, Paternal 1st cousin with colon cancer at 32 ROS: All 12 systems reviewed, as per HPI. O/E: Vital Signs Temp Pulse Resp BP Pulse Ox 99.1 F 113 30 105/60 93 01/31/19 09:45 01/31/19 09:45 01/31/19 10:07 01/31/19 09:45 01/31/19 10:07 Gen: pt in NAD HEENT: PERRLA, No JVD Lungs: Good a/e b/l, on nasal cannula CVS: S1, S2+ Abd: Dressing +, BS diminished, tender to palpation Neuro: Alert, awake Laboratory Results - last 24 hr 01/30/19 01/30/19 01/30/19 11:40 11:40 11:40 WBC 3.5 RBC 3.46 L Hgb 10.4 L Hct 31 L MCV 90 MCH 30 MCHC 33 RDW 19 H Plt Count 195 MPV 8.8 Neut % (Auto) 75.2 Lymph % (Auto) 10.0 [place] % (Auto) 14.4 Eos % (Auto) 0.2 Baso % (Auto) 0.2 Absolute Neuts (auto) 2.6 Absolute Lymphs (auto) 0.3 L Absolute Monos (auto) 0.5 Absolute Eos (auto) 0.0 Absolute Basos (auto) 0.0 Absolute Nucleated RBC 0.0 Immature Gran % 3.0 Neutrophils % 68.0 Band Neutrophils % 3.0 Lymphocytes % 13.0 Monocytes % 16.0 Nucleated RBC % 0.0 Normal RBC Morphology Normal Polychromasia Hypochromasia Anisocytosis Sodium 137 Potassium 3.6 Chloride 103 Carbon Dioxide 23 Anion Gap 11 BUN 20 Creatinine 1.26 H Est GFR ( Amer) 78.8 Est GFR (Non-Af Amer) 65.1 BUN/Creatinine Ratio 15.9 Glucose 111 H Lactic Acid 3.9 H* Calcium 8.3 L Magnesium 1.2 L Total Bilirubin 0.50 AST 11 L ALT 8 Alkaline Phosphatase 95 Ammonia Total Creatine Kinase 60 Troponin I 0.00 C-Reactive Protein 84.30 H B-Natriuretic Peptide Total Protein 5.4 L Albumin 2.8 L Globulin 2.6 Albumin/Globulin Ratio 1.1 Lipase 16 01/30/19 01/30/19 01/30/19 11:40 21:47 21:47 WBC 2.1 L RBC 3.12 L Hgb 9.5 L Hct 28 L MCV 90 MCH 30 MCHC 34 RDW 19 H Plt Count 156 MPV 8.8 Neut % (Auto) 68.8 Lymph % (Auto) 17.9 [place] % (Auto) 12.9 Eos % (Auto) 0.1 Baso % (Auto) 0.3 Absolute Neuts (auto) 1.4 L Absolute Lymphs (auto) 0.4 L Absolute Monos (auto) 0.3 Absolute Eos (auto) 0.0 Absolute Basos (auto) 0.0 Absolute Nucleated RBC 0.0 Immature Gran % 17.0 H Neutrophils % 52.0 Band Neutrophils % 17.0 H Lymphocytes % 18.0 Monocytes % 13.0 Nucleated RBC % 0.0 Normal RBC Morphology Not Reportable Polychromasia 1+ Hypochromasia 1+ Anisocytosis 2+ Sodium 136 Potassium 4.4 Chloride 108 Carbon Dioxide 21 L Anion Gap 7 BUN 17 Creatinine 0.94 Est GFR ( Amer) 110.5 Est GFR (Non-Af Amer) 91.3 BUN/Creatinine Ratio 18.1 Glucose 96 Lactic Acid Calcium 7.5 L Magnesium Total Bilirubin AST ALT Alkaline Phosphatase Ammonia 26 Total Creatine Kinase Troponin I C-Reactive Protein B-Natriuretic Peptide 89 Total Protein Albumin Globulin Albumin/Globulin Ratio Lipase 01/31/19 01/31/19 04:47 04:47 WBC 2.3 L RBC 2.93 L Hgb 8.6 L Hct 27 L MCV 91 MCH 29 MCHC 32 RDW 20 H Plt Count 147 L MPV 9.0 Neut % (Auto) 69.1 Lymph % (Auto) 14.9 [place] % (Auto) 15.7 Eos % (Auto) 0.1 Baso % (Auto) 0.2 Absolute Neuts (auto) 1.7 Absolute Lymphs (auto) 0.4 L Absolute Monos (auto) 0.4 Absolute Eos (auto) 0.0 Absolute Basos (auto) 0.0 Absolute Nucleated RBC 0.0 Immature Gran % 11.0 H Neutrophils % 46.0 Band Neutrophils % 11.0 H Lymphocytes % 27.0 Monocytes % 16.0 Nucleated RBC % 0.1 Normal RBC Morphology Not Reportable Polychromasia 1+ Hypochromasia Anisocytosis 1+ Sodium 138 Potassium 4.4 Chloride 109 Carbon Dioxide 23 Anion Gap 6 BUN 18 Creatinine 0.93 Est GFR ( Amer) 111.9 Est GFR (Non-Af Amer) 92.5 BUN/Creatinine Ratio 19.4 Glucose 96 Lactic Acid Calcium 7.4 L Magnesium Total Bilirubin AST ALT Alkaline Phosphatase Ammonia Total Creatine Kinase Troponin I C-Reactive Protein B-Natriuretic Peptide Total Protein Albumin Globulin Albumin/Globulin Ratio Lipase I/R: 33 y o m with metastatic colon cancer, h/o recurrent SBO presented with abd pain, found to have SBO and perforation of colon on CT abdomen. Pt underwent ex-lap with SB resection, lysis of adhesions and repair of ventral hernia with mesh, POD day#1. 1.SBO and bowel perforation 2.Sepsis 2/2 intrabdominal source 3.Lactic acidosis 4.Septic shock 5.Acute renal failure 6.Leucopenia PLan: GI: Pt with SBO and bowel perforation. Pt underwent ex-lap. Pt on broad spectrum abx for bowel sepsis. NPO, bowel rest, c/w NGT to low intermittent suction. GIppx. Monitor closely for comportment syndrome with intraabdominal pressure monitoring through sales catheter every 4 hrs. Optimal pain control. Neuro: Pt with chronic pain. Pt with no improvement in pain with Morphine, will switch to Dilaudid CAR WASH MANAGER. Monitor for over sedation. Aspiration precautions. ID: Septic shock secondary to intraabd sepsis. Pt started on Zosyn and Flagyl. Lactic acid elevated, repeat level is pending. Septic w/u sent from ED. c/w IVF.Hemodynamically stable currently, not requiring pressors. Resp: Has been tachypneic and requiring O2. Pt not able to take deep breaths and splinting secondary to pain. Optimal pain control. O2 supplementation. Incentive spirometer, encourage deep breathing CVS: Hypotension resolved with fluids , tachycardia sec to sepsis and pain. Fluids and vasopressors as indicated. EKG showed no acute ischemic changes Renal: ARF on admission, resolved. c/w fluid hydration, monitor electrolytes. Sales inserted for monitoring of I/O in setting of sepsis and for monitoring of intraabdominal pressure Haem: Chronic normocytic anemia, stable. Daily h&H monitoring given h/o GI bleed. Endo: Bl sugars slightly elevated, will monitor closely. Musculoskeletal: Frequent turning and positioning to prevent bed ulcers IV access: Pt with portacath GI px: PPI IV DVTpx: Heparin Sq, Venodynes Sales catheter: Yes
[2019-01-31] MEDS: Pantoprazole IV* 40 MG IV SCH (10:42)
[2019-01-31] MEDS: Nicotine PATCH 14 MG/24 HR* PATCH TRANSDERM SCH (14:30)
[2019-01-31] MEDS: Nicotine Patch Removal NOTE PATCH OFF SCH (21:12)
[2019-01-31] MEDS: fentaNYL PATCH 75 MCG/HR* 75 MCG TRANSDERM SCH (21:20)
[2019-01-31] MEDS: HYDROmorphone PCA* 20 MG/20 ML PCA.SYRING PCA SCH (23:17)
[2019-02-01] MEDS: Piperacillin/Tazobactam VIAL*) 3.375 GM in NS 0.9% 100 ML* 100 ML IVPB SCH ×3 (02:58→19:20)
[2019-02-01] MEDS: Heparin VIAL(*) 5000 UNITS/ML VIAL (FIVE THOUSAND) SUBCUT SCH ×3 (06:19→22:38)
[2019-02-01 06:39] LABS: Hematocrit 24 % (42-52); Mean Corpuscular HGB Conc 33 g/dL (31-36); Mean Corpuscular Hemoglobin 30 pg (27-31); Mean Corpuscular Volume 90 fL (80-94); Platelet Count 143 10^3/uL (150-450); Red Blood Count 2.65 10^6 /uL (4.18-5.48); Red Cell Distribution Width 19 % (10-15); White Blood Count 3.4 10^3/uL (3.5-10.8)
[2019-02-01 06:52] LABS: BUN/Creatinine Ratio 23.4 (8-20); Calcium 7.6 mg/dL (8.6-10.3); EGFR African American 139.1 (>60); Potassium 4.3 mmol/L (3.5-5.0)
[2019-02-01 08:25] LABS: ABS Lymphocytes 0.6 10^3/ul (1.0-4.8); ABS Monocytes 0.4 10^3/ul (0-0.8); ABS Neutrophils 2.2 10^3/ul (1.5-7.7); Eosinophil % 0.5 %; Lymphocyte % 18.3 %; Nucleated Red Blood Cells % 0.1
[2019-02-01 08:26] LABS: Polychromasia 1+
[2019-02-01] MEDS: fentaNYL Patch Check Q Shift 1 NOTE FOLLOW UP SCH ×2 (08:36→19:10)
[2019-02-01] MEDS: Nicotine PATCH 14 MG/24 HR* PATCH TRANSDERM SCH (08:52)
[2019-02-01] MEDS: HYDROmorphone PCA* 20 MG/20 ML PCA.SYRING PCA SCH ×2 (09:28→18:16)
[2019-02-01] MEDS: Pantoprazole IV* 40 MG IV SCH (10:45)
--- NOTE | 2019-02-01 12:36 | PN ---
Progress Note - Progress Note Date of Service: 02/01/19 SOAP: Subjective: []Admitted with perforated small bowel, POD 2. OOB to chair today, feels pretty good. Pain is controlled with MACHINED PARTS METAL SPRAYER. NG tube in place. In good spirits. Medications: Fentanyl (Duragesic Patch 75 Mcg/Hr*) 75 mcg TRANSDERM Q72H [facility] Last Admin: 01/31/19 21:20 Dose: 75 mcg Heparin Sodium (Porcine) (Heparin Vial(*)) 5,000 units SUBCUT Q8HR [facility] Last Admin: 02/01/19 06:19 Dose: 5,000 units Sodium Chloride (Ns 0.9% 1000 Ml) 1,000 mls @ 125 mls/hr IV PER RATE [facility] Last Admin: 01/31/19 15:40 Dose: 125 mls/hr Piperacillin Sod/Tazobactam (Sod 3.375 gm/ Sodium Chloride) 100 mls @ 25 mls/ hr IVPB Q8H [facility] Last Admin: 02/01/19 10:45 Dose: 25 mls/hr Hydromorphone HCl (Dilaudid Hydropulper Operator*) 20 mg in 20 mls @ 0 mls/hr MACHINED [employer]S METAL SPRAYER .change Q24H [facility]; Protocol Last Admin: 02/01/19 09:28 Dose: 0.5 mls/hr Naloxone HCl (Narcan*) 0.08 mg IV PUSH .Q2MIN PRN PRN Reason: OVERSEDATION Nicotine (Nicotine Patch 14 Mg/24 Hr*) 1 patch TRANSDERM DAILY [facility] Last Admin: 02/01/19 08:52 Dose: 1 patch Ondansetron HCl (Zofran Inj*) 4 mg IV Q4H PRN PRN Reason: NAUSEA/VOMITING Pantoprazole Sodium (Protonix Iv*) 40 mg IV Q24H [facility] Last Admin: 02/01/19 10:45 Dose: 40 mg Pharmacy Consult (Zosyn Per Pharmacy*) 1 note FOLLOW UP .ZOSYN PER PHARMACY [facility] Pharmacy Profile Note (Nicotine Patch Removal Note*) 1 note PATCH OFF 2100 [facility] Last Admin: 01/31/19 21:12 Dose: Not Given Pharmacy Profile Note (Fentanyl Patch Check Q Shift) 1 note FOLLOW UP 0700, 1900 [facility] Last Admin: 02/01/19 08:36 Dose: 1 note Objective: [] Vital Signs Temp Pulse Resp BP Pulse Ox 98.6 F 107 21 132/79 96 02/01/19 11:49 02/01/19 12:00 02/01/19 12:00 02/01/19 12:00 02/01/19 12:00 A&Ox3, EOMI, neuro grossly non-focal HRR, S1S2 LS clear +BS, midline incision with dressing and drain in place Laboratory Results - last 24 hr 02/01/19 02/01/19 06:19 06:19 WBC 3.4 L RBC 2.65 L Hgb 8.0 L Hct 24 L MCV 90 MCH 30 MCHC 33 RDW 19 H Plt Count 143 L MPV 9.0 Neut % (Auto) 67.1 Lymph % (Auto) 18.3 [place] % (Auto) 13.6 Eos % (Auto) 0.5 Baso % (Auto) 0.5 Absolute Neuts (auto) 2.2 Absolute Lymphs (auto) 0.6 L Absolute Monos (auto) 0.4 Absolute Eos (auto) 0.0 Absolute Basos (auto) 0.0 Absolute Nucleated RBC 0.0 Immature Gran % 2.0 Neutrophils % 57.0 Band Neutrophils % 2.0 Lymphocytes % 25.0 Monocytes % 14.0 Eosinophils % 1.0 Basophils % 1.0 Nucleated RBC % 0.1 Normal RBC Morphology Not Reportable Polychromasia 1+ Anisocytosis 2+ Sodium 141 Potassium 4.3 Chloride 111 Carbon Dioxide 25 Anion Gap 5 BUN 18 Creatinine 0.77 Est GFR ( Amer) 139.1 Est GFR (Non-Af Amer) 115.0 BUN/Creatinine Ratio 23.4 H Glucose 85 Calcium 7.6 L Assessment: []33 yo male with metastatic colon cancer c/b recurrent SBOs @ umbilical hernia site presented to the hospital with severe sepsis (lactic acid 3.9 and tachycardia) secondary to perforated bowel with perotinitis now POD 2 recovering appropriately. Plan: []Management as per surgical service Oncology to follow, chemotherapy on hold
[2019-02-01] MEDS ORDERED: Sodium Chloride 3% HYPERTONIC* 500 ML IV ONE (13:30)
--- NOTE | 2019-02-01 13:51 | PN ---
Date of Service: 02/01/19 Critical Care Services: sitting up in chair. less abdominal pains bladder pressures decreasing. <15 now but variable Vital Signs: Temp Pulse Resp BP SpO2 FiO2 98.6 F 107 21 132/79 96 02/01/19 11:49 02/01/19 12:00 02/01/19 12:00 02/01/19 12:00 02/01/19 12:00 Physical Exam: Gen:AO times 3. Sitting in chair Lungs: decreased BS's Cardiac: RRR Abdomen: Soft, slightly tender to palp. MAGALIS's in place Extremities: no Hollie Neuro: no focal deficits Fluid Balance (Past 24 Hours): I= O= Net Intake & Output 01/30/19 01/31/19 02/01/19 02/02/19 06:59 06:59 06:59 06:59 Intake Total 6800 1572 440 Output Total 1547 2681 545 Balance 5253 -1109 -105 Weight 220 lb 223 lb 3 oz Intake: IV Fluids 6800 1315 LR 6800 NS (0.9%) 1315 IVPB 257 NS (0.9%) 257 Oral 0 0 140 NG Tube Irrigate Amount 300 Output: NG Tube Drainage Amount 410 1700 300 MAGALIS #1 57 85 15 Ul 1080 896 230 Labs: Laboratory Results - last 24 hr 02/01/19 02/01/19 06:19 06:19 WBC 3.4 L RBC 2.65 L Hgb 8.0 L Hct 24 L MCV 90 MCH 30 MCHC 33 RDW 19 H Plt Count 143 L MPV 9.0 Neut % (Auto) 67.1 Lymph % (Auto) 18.3 [place] % (Auto) 13.6 Eos % (Auto) 0.5 Baso % (Auto) 0.5 Absolute Neuts (auto) 2.2 Absolute Lymphs (auto) 0.6 L Absolute Monos (auto) 0.4 Absolute Eos (auto) 0.0 Absolute Basos (auto) 0.0 Absolute Nucleated RBC 0.0 Immature Gran % 2.0 Neutrophils % 57.0 Band Neutrophils % 2.0 Lymphocytes % 25.0 Monocytes % 14.0 Eosinophils % 1.0 Basophils % 1.0 Nucleated RBC % 0.1 Normal RBC Morphology Not Reportable Polychromasia 1+ Anisocytosis 2+ Sodium 141 Potassium 4.3 Chloride 111 Carbon Dioxide 25 Anion Gap 5 BUN 18 Creatinine 0.77 Est GFR ( Amer) 139.1 Est GFR (Non-Af Amer) 115.0 BUN/Creatinine Ratio 23.4 H Glucose 85 Calcium 7.6 L Impression: Colon CA with mets s/p SBO and perf and repair Sepsis High bladder pressures Plan: continue to monitor in ICU continue to monitor MAGALIS drainage May benefit from pain Mx consult Not chemo candidate now transfer to floor in AM Critical Care Time: 34 minutes
[2019-02-01] MEDS: NS 0.9% 1000 ML** 1,000 ML IV SCH (19:20)
[2019-02-01] MEDS: Nicotine Patch Removal NOTE PATCH OFF SCH (20:35)
[2019-02-02] MEDS: NS 0.9% 1000 ML** 1,000 ML IV SCH (02:37)
[2019-02-02] MEDS: HYDROmorphone PCA* 20 MG/20 ML PCA.SYRING PCA SCH ×3 (02:58→18:42)
[2019-02-02] MEDS: Piperacillin/Tazobactam VIAL*) 3.375 GM in NS 0.9% 100 ML* 100 ML IVPB SCH ×3 (03:52→20:21)
[2019-02-02 06:11] LABS: ABS Lymphocytes 0.6 10^3/ul (1.0-4.8); ABS Monocytes 0.5 10^3/ul (0-0.8); ABS Neutrophils 1.8 10^3/ul (1.5-7.7); Eosinophil % 1.6 %; Hematocrit 23 % (42-52); Hemoglobin 7.5 g/dL (14.0-18.0); Lymphocyte % 19.4 %; Mean Corpuscular HGB Conc 33 g/dL (31-36); Mean Corpuscular Hemoglobin 30 pg (27-31); Mean Corpuscular Volume 90 fL (80-94); Nucleated Red Blood Cells % 0.1; Platelet Count 119 10^3/uL (150-450); Red Blood Count 2.51 10^6 /uL (4.18-5.48); Red Cell Distribution Width 19 % (10-15); White Blood Count 2.9 10^3/uL (3.5-10.8)
[2019-02-02] MEDS: Heparin VIAL(*) 5000 UNITS/ML VIAL (FIVE THOUSAND) SUBCUT SCH ×3 (06:32→22:36)
[2019-02-02 06:35] LABS: Calcium 7.4 mg/dL (8.6-10.3); Potassium 3.7 mmol/L (3.5-5.0)
[2019-02-02 06:40] LABS: BUN/Creatinine Ratio 18.8 (8-20); EGFR African American 172.2 (>60); EGFR Non-African American 142.3 (>60)
[2019-02-02] MEDS: fentaNYL Patch Check Q Shift 1 NOTE FOLLOW UP SCH ×2 (07:01→19:01)
--- NOTE | 2019-02-02 08:52 | PN ---
Progress Note - Progress Note Date of Service: 02/02/19 SOAP: Subjective: Pt seen examined. Feeling better. No nausea. Pos flatus. No BM; OOB yesterday Objective: Temp Pulse Resp BP Pulse Ox 98.8 F 82 19 129/83 96 02/02/19 03:30 02/02/19 06:00 02/02/19 06:00 02/02/19 06:00 02/02/19 06:00 Intake & Output 02/01/19 02/02/19 02/02/19 22:59 06:59 14:59 Intake Total 1246 1131 Output Total 410 1065 Balance 836 66 Weight 225 lb 3 oz NGT 1000, but ice chip intake lungs cta abdo: tense, less tender dressing intact MAGALIS serous ext: edema, nonpitting labs noted Assessment: POD 2 ex lap, RASHEL, SB resection, hernia repair Plan: NGTout, Crow out IVF Xfr to floor npo
--- NOTE | 2019-02-02 09:06 | PN ---
Date of Service: 02/02/19 Critical Care Services: AO times 3. Pain controlled. Lu and NGT's removed Vital Signs: Temp Pulse Resp BP SpO2 FiO2 97.9 F 80 17 139/84 96 02/02/19 08:00 02/02/19 08:00 02/02/19 08:00 02/02/19 08:00 02/02/19 08:00 Physical Exam: AO times 3. RRR. Decreased BS's. + BS's. Slightly tender to palpation. No focal deficits. Fluid Balance (Past 24 Hours): I= O= Net Intake & Output 01/31/19 02/01/19 02/02/19 02/03/19 06:59 06:59 06:59 06:59 Intake Total 6800 1572 3408 Output Total 1547 2681 2125 100 Balance 5253 -1109 1283 -100 Weight 220 lb 223 lb 3 oz 225 lb 3 oz Intake: IV Fluids 6800 1315 2107 LR 6800 NS (0.9%) 1315 2107 IVPB 257 771 NS (0.9%) 257 591 Zosyn 180 Oral 0 0 140 NG Tube Irrigate Amount 300 Lu Irrigate Amount 90 Output: NG Tube Drainage Amount 410 1700 1040 MAGALIS #1 57 85 35 Lu 0383 215 4258 100 Labs: Laboratory Results - last 24 hr 01/30/19 01/30/19 01/31/19 11:40 21:47 04:47 WBC RBC Hgb Hct MCV MCH MCHC RDW Plt Count MPV Neut % (Auto) Lymph % (Auto) [place] % (Auto) Eos % (Auto) Baso % (Auto) Absolute Neuts (auto) Absolute Lymphs (auto) Absolute Monos (auto) Absolute Eos (auto) Absolute Basos (auto) Absolute Nucleated RBC Nucleated RBC % Hem Pathologist Commnt Sodium Potassium Chloride Carbon Dioxide Anion Gap BUN Creatinine Est GFR ( Amer) Est GFR (Non-Af Amer) BUN/Creatinine Ratio Glucose Calcium 02/01/19 02/02/19 02/02/19 06:19 05:40 05:40 WBC 2.9 L RBC 2.51 L Hgb 7.5 L Hct 23 L MCV 90 MCH 30 MCHC 33 RDW 19 H Plt Count 119 L MPV 9.0 Neut % (Auto) 62.5 Lymph % (Auto) 19.4 [place] % (Auto) 16.0 Eos % (Auto) 1.6 Baso % (Auto) 0.5 Absolute Neuts (auto) 1.8 Absolute Lymphs (auto) 0.6 L Absolute Monos (auto) 0.5 Absolute Eos (auto) 0.0 Absolute Basos (auto) 0.0 Absolute Nucleated RBC 0.0 Nucleated RBC % 0.1 Hem Pathologist Commnt Sodium 142 Potassium 3.7 Chloride 112 H Carbon Dioxide 23 Anion Gap 7 BUN 12 Creatinine 0.64 L Est GFR ( Amer) 172.2 Est GFR (Non-Af Amer) 142.3 BUN/Creatinine Ratio 18.8 Glucose 62 L Calcium 7.4 L Impression: colon ca with mets s/p SBO and perf s/p repair Sepsis Plan: continue ABX per surgery Pain consult Oncology and Surgery to follow on floor Transfer to floor Critical Care Time:34
[2019-02-02] MEDS: Pantoprazole IV* 40 MG IV SCH (09:41)
[2019-02-02] MEDS: Nicotine PATCH 14 MG/24 HR* PATCH TRANSDERM SCH (09:41)
--- NOTE | 2019-02-02 12:25 | PN ---
Progress Note - Progress Note Date of Service: 02/02/19 SOAP: Subjective: [Wu reports that he is feeling good. His pain is well controlled. No nausea. NG tube and Lu out and he has been transferred to the surgical floor. MAGALIS drain remains in place. Passing gas, no BM.] Objective: [ Vital Signs: Temp Pulse Resp BP Pulse Ox 98.7 F 98 20 124/70 100 02/02/19 10:50 02/02/19 10:50 02/02/19 11:50 02/02/19 10:50 02/02/19 11:03 Laboratory Results - last 24 hr 01/30/19 01/30/19 01/31/19 11:40 21:47 04:47 WBC RBC Hgb Hct MCV MCH MCHC RDW Plt Count MPV Neut % (Auto) Lymph % (Auto) [place] % (Auto) Eos % (Auto) Baso % (Auto) Absolute Neuts (auto) Absolute Lymphs (auto) Absolute Monos (auto) Absolute Eos (auto) Absolute Basos (auto) Absolute Nucleated RBC Nucleated RBC % Hem Pathologist Commnt Sodium Potassium Chloride Carbon Dioxide Anion Gap BUN Creatinine Est GFR ( Amer) Est GFR (Non-Af Amer) BUN/Creatinine Ratio Glucose Calcium 02/01/19 02/02/19 02/02/19 06:19 05:40 05:40 WBC 2.9 L RBC 2.51 L Hgb 7.5 L Hct 23 L MCV 90 MCH 30 MCHC 33 RDW 19 H Plt Count 119 L MPV 9.0 Neut % (Auto) 62.5 Lymph % (Auto) 19.4 [place] % (Auto) 16.0 Eos % (Auto) 1.6 Baso % (Auto) 0.5 Absolute Neuts (auto) 1.8 Absolute Lymphs (auto) 0.6 L Absolute Monos (auto) 0.5 Absolute Eos (auto) 0.0 Absolute Basos (auto) 0.0 Absolute Nucleated RBC 0.0 Nucleated RBC % 0.1 Hem Pathologist Commnt Sodium 142 Potassium 3.7 Chloride 112 H Carbon Dioxide 23 Anion Gap 7 BUN 12 Creatinine 0.64 L Est GFR ( Amer) 172.2 Est GFR (Non-Af Amer) 142.3 BUN/Creatinine Ratio 18.8 Glucose 62 L Calcium 7.4 L Fentanyl (Duragesic Patch 75 Mcg/Hr*) 75 mcg TRANSDERM Q72H [facility] Last Admin: 01/31/19 21:20 Dose: 75 mcg Heparin Sodium (Porcine) (Heparin Vial(*)) 5,000 units SUBCUT Q8HR [facility] Last Admin: 02/02/19 06:32 Dose: 5,000 units Piperacillin Sod/Tazobactam (Sod 3.375 gm/ Sodium Chloride) 100 mls @ 25 mls/ hr IVPB Q8H [facility] Last Admin: 02/02/19 03:52 Dose: 25 mls/hr Hydromorphone HCl (Dilaudid Associate Professor Of Literacy*) 20 mg in 20 mls @ 0 mls/hr HEARING EXAMINER .change Q24H [facility]; Protocol Last Admin: 02/02/19 10:12 Dose: 0.5 mls/hr Naloxone HCl (Narcan*) 0.08 mg IV PUSH .Q2MIN PRN PRN Reason: OVERSEDATION Nicotine (Nicotine Patch 14 Mg/24 Hr*) 1 patch TRANSDERM DAILY [facility] Last Admin: 02/02/19 09:41 Dose: 1 patch Ondansetron HCl (Zofran Inj*) 4 mg IV Q4H PRN PRN Reason: NAUSEA/VOMITING Pantoprazole Sodium (Protonix Iv*) 40 mg IV Q24H [facility] Last Admin: 02/02/19 09:41 Dose: 40 mg Pharmacy Consult (Zosyn Per Pharmacy*) 1 note FOLLOW UP .ZOSYN PER PHARMACY [facility] Pharmacy Profile Note (Nicotine Patch Removal Note*) 1 note PATCH OFF 2100 [facility] Last Admin: 02/01/19 20:35 Dose: Not Given Pharmacy Profile Note (Fentanyl Patch Check Q Shift) 1 note FOLLOW UP 0700, 1900 [facility] Last Admin: 02/02/19 07:01 Dose: 1 note Exam: Gen: Well appearing, in NAD HEENT: MMM, edentulous CV: RRR, no m/r/g Resp: CTA Abd: soft, active BS, R sided MAGALIS drain, wound vac in place] Assessment: [This is a 33 yo male with metastatic colon cancer and a h/o of a large symptomatic hernia with multiple SBOs who presented with a small bowel perforation now s/p small bowel resection with reanastamosis and hernia repair with mesh. ] Plan: [- cont post-operative management per primary surgical team - oncology will cont to follow along]
[2019-02-02] MEDS: Nicotine Patch Removal NOTE PATCH OFF SCH (22:40)
[2019-02-03] MEDS: HYDROmorphone PCA* 20 MG/20 ML PCA.SYRING PCA SCH ×3 (03:12→17:49)
[2019-02-03] MEDS: Piperacillin/Tazobactam VIAL*) 3.375 GM in NS 0.9% 100 ML* 100 ML IVPB SCH ×3 (04:17→19:18)
[2019-02-03] MEDS: Heparin VIAL(*) 5000 UNITS/ML VIAL (FIVE THOUSAND) SUBCUT SCH ×3 (06:33→21:35)
[2019-02-03] MEDS: fentaNYL Patch Check Q Shift 1 NOTE FOLLOW UP SCH ×2 (07:18→18:56)
[2019-02-03] MEDS: D5W 1/2 NS 1000 ML BAG* 1,000 ML IV SCH (07:54)
[2019-02-03] MEDS: Nicotine PATCH 14 MG/24 HR* PATCH TRANSDERM SCH (08:45)
[2019-02-03] MEDS: Pantoprazole IV* 40 MG IV SCH (10:14)
--- NOTE | 2019-02-03 15:23 | PN ---
Progress Note - Progress Note Date of Service: 02/03/19 SOAP: Subjective: Pt seen examined. Feeling better. No nausea. Pos flatus. No BM; OOB yesterday and transferred to floor Objective: Temp Pulse Resp BP Pulse Ox 99.6 F 94 18 122/57 97 02/03/19 12:14 02/03/19 12:14 02/03/19 12:14 02/03/19 12:14 02/03/19 12:14 lungs course sounds b/l abdo: tense, tender dressing intact MAGALIS serous, NPWT in place ext: edema, nonpitting path reviewed Assessment: POD 3 ex lap, RASHEL, SB resection, hernia repair Plan: clears, IVF abx
[2019-02-03] MEDS: Nicotine Patch Removal NOTE PATCH OFF SCH (19:38)
[2019-02-03] MEDS: fentaNYL PATCH 75 MCG/HR* 75 MCG TRANSDERM SCH (21:40)
[2019-02-04] MEDS: HYDROmorphone PCA* 20 MG/20 ML PCA.SYRING PCA SCH ×3 (01:28→18:02)
[2019-02-04] MEDS: Piperacillin/Tazobactam VIAL*) 3.375 GM in NS 0.9% 100 ML* 100 ML IVPB SCH ×3 (03:30→22:03)
[2019-02-04] MEDS: D5W 1/2 NS 1000 ML BAG* 1,000 ML IV SCH (03:46)
[2019-02-04] MEDS: Heparin VIAL(*) 5000 UNITS/ML VIAL (FIVE THOUSAND) SUBCUT SCH ×3 (05:27→22:10)
[2019-02-04 05:38] LABS: Hematocrit 24 % (42-52); Hemoglobin 8.1 g/dL (14.0-18.0); Mean Corpuscular HGB Conc 34 g/dL (31-36); Mean Corpuscular Hemoglobin 30 pg (27-31); Mean Corpuscular Volume 88 fL (80-94); Mean Platelet Volume 8.5 fL (7.4-10.4); Platelet Count 110 10^3/uL (150-450); Red Cell Distribution Width 19 % (10-15); White Blood Count 5.4 10^3/uL (3.5-10.8)
[2019-02-04 06:00] LABS: Calcium 7.5 mg/dL (8.6-10.3); Magnesium 1.6 mg/dL (1.9-2.7); Potassium 3.1 mmol/L (3.5-5.0)
[2019-02-04 06:06] LABS: BUN/Creatinine Ratio 8.2 (8-20); EGFR African American 234.4 (>60); EGFR Non-African American 193.7 (>60)
[2019-02-04 06:09] LABS: ABS Eosinophils 0.1 10^3/ul (0-0.6); ABS Lymphocytes 0.8 10^3/ul (1.0-4.8); ABS Monocytes 1.3 10^3/ul (0-0.8); ABS Neutrophils 3.2 10^3/ul (1.5-7.7); Eosinophil % 1.8 %; Lymphocyte % 15.1 %; Nucleated Red Blood Cells % 0.1
[2019-02-04 06:11] LABS: Polychromasia 1+
[2019-02-04] MEDS: fentaNYL Patch Check Q Shift 1 NOTE FOLLOW UP SCH ×2 (06:56→18:56)
[2019-02-04] MEDS: Nicotine PATCH 14 MG/24 HR* PATCH TRANSDERM SCH (08:53)
[2019-02-04] MEDS: Pantoprazole IV* 40 MG IV SCH (10:17)
[2019-02-04] MEDS ORDERED: Magnesium Sulfate 2 GM IV* 2 GM/50 ML BAG IVPB ONE (12:17)
--- NOTE | 2019-02-04 12:30 | PN ---
Progress Note - Progress Note Date of Service: 02/04/19 Note: S: POD #5. Pain controlled w/ SCHOOL CROSSING GUARD SUPERVISOR. Mervin clears. No N/V. Passing flatus and had BM this a.m. Ambulating some, but requiring assist of 2. Less SOB. Less UE edema. O: Vital Signs - 8 hr 02/04/19 02/04/19 02/04/19 07:24 08:00 08:46 Temperature 98.5 F Pulse Rate 96 Respiratory 19 18 18 Rate Blood Pressure 126/76 (mmHg) O2 Sat by Pulse 98 97 Oximetry 02/04/19 02/04/19 02/04/19 08:50 10:00 10:23 Temperature Pulse Rate 96 Respiratory 18 18 18 Rate Blood Pressure 126/76 (mmHg) O2 Sat by Pulse 98 97 Oximetry 02/04/19 11:00 Temperature 98.1 F Pulse Rate 95 Respiratory 18 Rate Blood Pressure 130/66 (mmHg) O2 Sat by Pulse 100 Oximetry Intake and Output Last 24 Hours 02/02/19 02/03/19 02/04/19 02/05/19 06:59 06:59 06:59 06:59 Intake Total 3408 825 3730 240 Output Total 2125 745 400 70 Balance 1283 80 3330 170 Weight 225 lb 3 oz Intake: IV Fluids 2107 700 990 D5W 1/2 NS 990 NS (0.9%) 2107 600 Zosyn 100 IVPB 771 125 60 NS (0.9%) 591 Zosyn 180 125 60 Oral 140 0 2680 240 NG Tube Irrigate Amount 300 Lu Irrigate Amount 90 Output: NG Tube Drainage Amount 1040 MAGALIS #1 35 85 50 70 Urine 500 350 Lu 1050 160 Other: Estimated Void Medium # Voids 1 Gen: sitting up in bed; appears comfortable; NAD Heart: reg-> mildly tachy Lungs: upper cuellar clear after cough; few crackles L base; decreased BS at R base Abd: MAGALIS mostly clear serosang w/ some particulate matter; Preveena in place; +BS ; soft; mild tenderness to palp Extr: mild to mod L UE edema, improved; no sig LE edema Labs: Laboratory Tests 02/04/19 02/04/19 05:13 05:13 WBC 5.4 Hgb 8.1 L Hct 24 L Potassium 3.1 L Magnesium 1.6 L A: s/p ex lap, SB rsxn, repair ventral hernia in setting of metastatic colon ca ; improving Hypokalemia and hypomagnesemia P: adv diet as mervin Replete and recheck K and Mg OT/PT assessment
[2019-02-04] MEDS: KCL 20 MEQ/100 ML IVPREMIX* 20 MEQ/100 ML BAG IV SCH ×2 (13:39→15:44)
[2019-02-04] MEDS: Nicotine Patch Removal NOTE PATCH OFF SCH (23:13)
[2019-02-05] MEDS: D5W 1/2 NS 1000 ML BAG* 1,000 ML IV SCH (00:04)
[2019-02-05] MEDS: Piperacillin/Tazobactam VIAL*) 3.375 GM in NS 0.9% 100 ML* 100 ML IVPB SCH ×3 (03:11→19:22)
[2019-02-05] MEDS: Heparin VIAL(*) 5000 UNITS/ML VIAL (FIVE THOUSAND) SUBCUT SCH ×3 (05:32→21:59)
[2019-02-05 06:27] LABS: BUN/Creatinine Ratio 5.6 (8-20); Calcium 7.4 mg/dL (8.6-10.3); EGFR African American 209.5 (>60); EGFR Non-African American 173.1 (>60); Magnesium 1.9 mg/dL (1.9-2.7); Potassium 3.2 mmol/L (3.5-5.0)
[2019-02-05] MEDS: fentaNYL Patch Check Q Shift 1 NOTE FOLLOW UP SCH ×3 (06:48→19:07)
[2019-02-05] MEDS: HYDROmorphone PCA* 20 MG/20 ML PCA.SYRING PCA SCH (08:02)
[2019-02-05] MEDS: Nicotine PATCH 14 MG/24 HR* PATCH TRANSDERM SCH (10:27)
[2019-02-05] MEDS: Pantoprazole IV* 40 MG IV SCH (10:27)
[2019-02-05] MEDS ORDERED: Senna TAB 8.6 mg* TAB PO PRN (11:10)
--- NOTE | 2019-02-05 11:24 | PN ---
Progress Note - Progress Note Date of Service: 02/05/19 Note: S: POD #6. Cont to improve. Less pain. Kyle full liqs well enough; would like to hold at fulls. +BM. Ambulating w/ min assist of 1. Would like to return to usual baseline pain meds. O: Vital Signs - 8 hr 02/05/19 02/05/19 02/05/19 05:00 06:30 08:02 Temperature Pulse Rate Respiratory 17 17 20 Rate Blood Pressure (mmHg) O2 Sat by Pulse 95 95 Oximetry 02/05/19 02/05/19 08:03 08:28 Temperature 98.6 F Pulse Rate 97 Respiratory 16 18 Rate Blood Pressure 132/71 (mmHg) O2 Sat by Pulse 95 97 Oximetry Intake and Output Last 24 Hours 02/03/19 02/04/19 02/05/19 02/06/19 06:59 06:59 06:59 06:59 Intake Total 825 3730 1410 100 Output Total 745 400 160 220 Balance 80 3330 1250 -120 Intake: IV Fluids 700 990 D5W 1/2 NS 990 NS (0.9%) 600 Zosyn 100 IVPB 125 60 Zosyn 125 60 Oral 0 2680 1410 100 Output: MAGALIS #1 85 50 160 20 Urine 500 350 0 200 Lu 160 Other: Estimated Void Large Date of Last Bowel 02/04/19 Movement # Bowel Movements 1 Estimated Stool Amount Large # Voids 1 Gen: comfortable; NAD; sitting up in recliner Heart: reg Lungs: clear upper cuellar and bases Abd: Preveena in place; MAGALIS: clear serosang; soft; mild midline and shane-drain tenderness (improved) Labs: Laboratory Tests 02/05/19 05:25 Potassium 3.2 L Magnesium 1.9 A: s/p exp lap w/ SB rsxn improving P: replete K; d/c RADIATION ENGINEER (resume usual home pain regimen; IV dilaudid for breakthrough); cont full liqs/Ensure; prob d/c Preveena, MAGALIS, and abx prior to poss d/c in 1-2 d (will review w/ Dr. Mendoza).
[2019-02-05] MEDS ORDERED: fentaNYL PATCH 50 MCG/HR TRANSDERM SCH (12:00)
[2019-02-05] MEDS: HYDROmorphone TAB* 2 MG PO PRN ×4 (12:28→22:46)
[2019-02-05] MEDS: KCL 20 MEQ/100 ML IVPREMIX* 20 MEQ/100 ML BAG IV SCH ×3 (12:29→16:46)
[2019-02-05] MEDS: HYDROmorphone INJ1* 1 MG/ML SYRINGE IV SLOW PU PRN ×4 (15:02→21:59)
[2019-02-05] MEDS ORDERED: HYDROmorphone INJ1* 1 MG/ML SYRINGE ONE (15:02)
[2019-02-05] MEDS: Nicotine Patch Removal NOTE PATCH OFF SCH (22:00)
[2019-02-06] MEDS: HYDROmorphone INJ1* 1 MG/ML SYRINGE IV SLOW PU PRN ×10 (00:27→22:50)
[2019-02-06] MEDS: HYDROmorphone TAB* 2 MG PO PRN ×7 (02:00→21:19)
[2019-02-06] MEDS: Piperacillin/Tazobactam VIAL*) 3.375 GM in NS 0.9% 100 ML* 100 ML IVPB SCH (03:07)
[2019-02-06] MEDS: Heparin VIAL(*) 5000 UNITS/ML VIAL (FIVE THOUSAND) SUBCUT SCH ×3 (05:35→21:20)
[2019-02-06 05:59] LABS: BUN/Creatinine Ratio 3.9 (8-20); Calcium 7.6 mg/dL (8.6-10.3); EGFR African American 223.8 (>60); Potassium 3.5 mmol/L (3.5-5.0)
[2019-02-06] MEDS: fentaNYL Patch Check Q Shift 1 NOTE FOLLOW UP SCH ×4 (06:48→19:08)
[2019-02-06] MEDS: Nicotine PATCH 14 MG/24 HR* PATCH TRANSDERM SCH (08:43)
[2019-02-06] MEDS: Pantoprazole IV* 40 MG IV SCH (11:07)
--- NOTE | 2019-02-06 11:28 | PN ---
Progress Note - Progress Note Date of Service: 02/06/19 Note: Surgery Progress Note S: Patient is doing very well. He said his night was tough because he had his SPEED RUNNER discontinued yesterday however he denies pain. He has been ambulating. He is having bowel function. He is tolerating a full liquid diet. O: Vital Signs - 24 hr 02/05/19 02/05/19 02/05/19 11:45 12:28 12:29 Temperature 98.5 F Pulse Rate 88 Respiratory 16 18 18 Rate Blood Pressure 132/66 (mmHg) O2 Sat by Pulse 95 Oximetry 02/05/19 02/05/19 02/05/19 15:02 15:04 15:55 Temperature 98.2 F Pulse Rate 104 Respiratory 18 20 18 Rate Blood Pressure 121/69 (mmHg) O2 Sat by Pulse 90 Oximetry 02/05/19 02/05/19 02/05/19 16:40 17:26 17:54 Temperature Pulse Rate Respiratory 18 18 18 Rate Blood Pressure (mmHg) O2 Sat by Pulse Oximetry 02/05/19 02/05/19 02/05/19 19:08 19:22 19:59 Temperature Pulse Rate Respiratory 16 16 16 Rate Blood Pressure (mmHg) O2 Sat by Pulse Oximetry 02/05/19 02/05/19 02/05/19 20:10 21:50 21:59 Temperature 98.4 F Pulse Rate 95 Respiratory 18 16 16 Rate Blood Pressure 133/75 (mmHg) O2 Sat by Pulse 96 Oximetry 02/05/19 02/05/19 02/05/19 22:00 22:46 23:21 Temperature Pulse Rate Respiratory 16 18 16 Rate Blood Pressure (mmHg) O2 Sat by Pulse Oximetry 02/05/19 02/06/19 02/06/19 23:34 00:00 00:27 Temperature 98.6 F Pulse Rate 85 Respiratory 18 18 Rate Blood Pressure 127/71 (mmHg) O2 Sat by Pulse 98 98 Oximetry 02/06/19 02/06/19 02/06/19 02:00 02:01 02:02 Temperature Pulse Rate Respiratory 18 18 18 Rate Blood Pressure (mmHg) O2 Sat by Pulse Oximetry 02/06/19 02/06/19 02/06/19 03:04 03:12 04:37 Temperature 98.5 F Pulse Rate 86 Respiratory 18 18 16 Rate Blood Pressure 133/75 (mmHg) O2 Sat by Pulse 98 Oximetry 02/06/19 02/06/19 02/06/19 05:05 05:34 06:31 Temperature Pulse Rate Respiratory 18 16 16 Rate Blood Pressure (mmHg) O2 Sat by Pulse Oximetry 02/06/19 02/06/19 02/06/19 07:05 07:45 07:48 Temperature 97.9 F Pulse Rate 77 Respiratory 16 16 16 Rate Blood Pressure 130/73 (mmHg) O2 Sat by Pulse 98 98 Oximetry 02/06/19 02/06/19 02/06/19 08:37 08:40 09:07 Temperature Pulse Rate Respiratory 16 16 20 Rate Blood Pressure (mmHg) O2 Sat by Pulse Oximetry 02/06/19 02/06/19 10:40 11:10 Temperature Pulse Rate Respiratory 16 16 Rate Blood Pressure (mmHg) O2 Sat by Pulse Oximetry Laboratory Results - last 24 hr 02/06/19 05:10 Sodium 139 Potassium 3.5 Chloride 108 Carbon Dioxide 25 Anion Gap 6 BUN 2 L Creatinine 0.51 L Est GFR ( Amer) 223.8 Est GFR (Non-Af Amer) 185.0 BUN/Creatinine Ratio 3.9 L Glucose 80 Calcium 7.6 L Intake & Output 02/05/19 02/06/19 02/06/19 22:59 06:59 14:59 Intake Total 2370 500 200 Output Total 740 330 340 Balance 1630 170 -140 Intake: IV Fluids 755 D5W 1/2 NS 705 NS (0.9%) 50 IVPB 100 KCL in Sterile Water 100 Oral 1515 500 200 Output: MAGALIS #1 65 30 40 Urine 675 300 300 Other: Estimated Void Large Date of Last Bowel 02/05/19 Movement # Bowel Movements 1 Estimated Stool Amount Large # Voids 1 Physical exam: Abdomen- soft, non tender, non distended. Preveena VAC removed and incision c/d /i, no drainage, no erythema. MAGALIS x 1 with sero sanguinous fluid A/P: 33 M with metastatic colon cancer, POD 7 from exploratory laparotomy and small bowel resection for small bowel perforation, doing very well. - Will continue full liquids. Patient will be discharged on full liquids and is familiar with this diet as he was maintaining full liquids before his hospitalization for recurrent SBOs. - DC antibiotics - Saline lock IV - Continue HSQ, protonix - Continue fentanyl patch, PO dilaudid and IV dilaudid PRN for pain. - Dispo: plan for DC home tomorrow with MAGALIS drain and no antibiotics. Pain regimen was discussed with patient and Ousmane Osorio yesterday ordered patient's oral dilaudid to outpatient pharmacy. Patient is on chronic pain medications for his advanced metastatic disease.
[2019-02-06] MEDS: Nicotine Patch Removal NOTE PATCH OFF SCH (21:03)
[2019-02-06] MEDS: fentaNYL PATCH 75 MCG/HR* 75 MCG TRANSDERM SCH (21:13)
[2019-02-07] MEDS: HYDROmorphone INJ1* 1 MG/ML SYRINGE IV SLOW PU PRN ×6 (00:57→12:46)
[2019-02-07] MEDS: HYDROmorphone TAB* 2 MG PO PRN ×4 (00:58→11:58)
[2019-02-07] MEDS: Heparin VIAL(*) 5000 UNITS/ML VIAL (FIVE THOUSAND) SUBCUT SCH (06:07)
[2019-02-07] MEDS: fentaNYL Patch Check Q Shift 1 NOTE FOLLOW UP SCH ×2 (07:02→07:03)
[2019-02-07 07:32] VITALS: BP 125/77
--- NOTE | 2019-02-07 10:59 | PN ---
Progress Note - Progress Note Date of Service: 02/07/19 SOAP: Subjective: [Wu is doing very well. Tolerating full liquids. Moving bowels. Pain is relatively well controlled. He is anticipating dc today.] Objective: [ Vital Signs: Temp Pulse Resp BP Pulse Ox 98.1 F 91 18 125/77 92 02/07/19 07:32 02/07/19 07:32 02/07/19 08:45 02/07/19 07:32 02/07/19 08:00 Fentanyl (Duragesic Patch 75 Mcg/Hr*) 75 mcg TRANSDERM Q72H [facility] Last Admin: 02/06/19 21:13 Dose: 75 mcg Fentanyl (Duragesic Patch 50 Mcg/Hr*) 50 mcg TRANSDERM Q72H [facility] Last Admin: 02/05/19 12:29 Dose: 50 mcg Heparin Sodium (Porcine) (Heparin Vial(*)) 5,000 units SUBCUT Q8HR [facility] Last Admin: 02/07/19 06:07 Dose: 5,000 units Heparin Sodium (Porcine) (Heparin Flush Port (Ivad)) 5 ml FLUSH BID [facility]; Protocol Last Admin: 02/06/19 21:22 Dose: 5 ml Hydromorphone HCl (Dilaudid Tab*) 6 mg PO Q3HR PRN PRN Reason: PAIN - MODERATE Last Admin: 02/07/19 08:02 Dose: 6 mg Hydromorphone HCl (Dilaudid Inj1s*) 1 mg IV SLOW PU Q2H PRN PRN Reason: breakthrough pain Last Admin: 02/07/19 08:45 Dose: 1 mg Nicotine (Nicotine Patch 14 Mg/24 Hr*) 1 patch TRANSDERM DAILY [facility] Last Admin: 02/06/19 08:43 Dose: 1 patch Ondansetron HCl (Zofran Inj*) 4 mg IV Q4H PRN PRN Reason: NAUSEA/VOMITING Pantoprazole Sodium (Protonix Iv*) 40 mg IV Q24H [facility] Last Admin: 02/06/19 11:07 Dose: 40 mg Pharmacy Profile Note (Nicotine Patch Removal Note*) 1 note PATCH OFF 2100 [facility] Last Admin: 02/06/19 21:03 Dose: Not Given Pharmacy Profile Note (Fentanyl Patch Check Q Shift) 1 note FOLLOW UP 0700, 1900 [facility] Last Admin: 02/07/19 07:02 Dose: 1 note Pharmacy Profile Note (Fentanyl Patch Check Q Shift) 1 note FOLLOW UP 0700, 1900 [facility] Last Admin: 02/07/19 07:03 Dose: 1 note Senna (Senokot 8.6 Mg Tab*) 1 tab PO BEDTIME PRN PRN Reason: CONSTIPATION Exam: Gen: Well appearing, in NAD HEENT: MMM, edentulous CV: RRR, no m/r/g Resp: CTA Abd: soft, active BS, R sided MAGALIS drain, clean midline incision with dominguez in place] Assessment: [This is a 33 yo male with metastatic colon cancer and a h/o of a large symptomatic hernia with multiple SBOs who presented with a small bowel perforation now s/p small bowel resection with reanastamosis and hernia repair with mesh. He has done very well postoperatively and is anticipating dc today.] Plan: [1. SB perforation with resection and hernia repair - dominguez and MAGALIS drain remain in place - post operative care and follow up per surgery team 2. Metastatic colon CA - plan to resume chemotherapy when dominguez have been removed and cleared by surgeon - follow up with Dr Gregorio 02/15 at 10:20 to reassess Dispo: dc planning per surgical team
--- NOTE | 2019-02-07 11:27 | PN ---
Progress Note - Progress Note Date of Service: 02/07/19 Note: Surgery Progress Note S: Patient is doing very well. No complaints. Tolerating full liquids. Pain well controlled and he is ambulating. He is eager to go home. O: Vital Signs: Temp Pulse Resp BP Pulse Ox 98.1 F 91 20 125/77 92 02/07/19 07:32 02/07/19 07:32 02/07/19 10:58 02/07/19 07:32 02/07/19 08:00 Intake & Output 02/06/19 02/07/19 02/07/19 22:59 06:59 14:59 Intake Total 400 300 Output Total 290 985 400 Balance 110 -685 -400 Intake: Oral 400 300 Output: MAGALIS #1 40 20 Urine 250 965 400 Other: Estimated Void Medium # Voids 4 Abdomen- soft, non tender, non distended, incision c/d/i dominguez in place, MAGALIS with s/s fluid A/P: 33 M with metastatic colon cancer, post op ex lap and small bowel resection and ventral hernia repair, doing well. - DC home today on full liquids - MAGALIS drain teaching - DC med (percocet) already sent to pharmacy. Patient should call office tomorrow to make an appointment with Dr. Mendoza this week to assess if drain can be removed and to remove dominguez. Follow up with Dr. Gregorio as an outpatient.
[2019-02-07] MEDS: Nicotine PATCH 14 MG/24 HR* PATCH TRANSDERM SCH (12:12)
[2019-02-07] MEDS: Pantoprazole IV* 40 MG IV SCH (12:18)
--- NOTE | 2019-02-19 14:11 | DS ---
AMENDED REPORT TO CORRECT TYPED DATE OF ADMISSION DISCHARGE SUMMARY: DATE OF ADMISSION: 01/30/19 DATE OF DISCHARGE: 02/07/19 DISCHARGE CONDITION: The patient was discharged home in stable condition. HOSPITAL COURSE: Mr. Sepulveda is a 33-year-old gentleman, who was admitted through the ER emergently, taken to the operating room for perforated bowel. Please see operative report for details. The patient was septic and emergently taken to the OR briefly. He underwent exploratory laparotomy, lysis of adhesions, small bowel resection, and multiple ventral hernia repairs with biologic mesh. He was extubated, transferred to the PACU and onto the short- stay surgical unit with Lu catheter in place and NG tube in place. Oncology was following the patient as well. By postoperative day 1, the patient was having a fair amount of abdominal pain and my concern was that the patient required bladder pressures to rule out compartment syndrome. For this reason, the patient was transferred to the ICU where he underwent these pressures and they were within normal limits. He was followed by the ICU attending as well and he was maintained on antibiotics, DVT , and GI prophylaxis. The patient was improving by postoperative day 2 and was transferred back to the floor where his diet was slowly advanced. The patient was ambulatory. His urinary catheter came out. He started having bowel movements and was ultimately discharged home in stable condition for planned followup as an outpatient. The patient did have 2 MAGALIS drains placed at the time of surgery, one was removed prior to discharge and he was given MAGALIS drain teaching and his will empty this and record it regularly as an outpatient. [id number]/[facility] #: [id number] ENRIQUE
== END 2019-02-07 13:00 | disposition home or self-care (01) | DRG 710 ==
LOC: ED 10:47 → OR 14:38 → SSU 18:29 → ICU 01-31 09:04 → SSU 02-02 08:56
PROVIDERS: ADMIT Surgery; ATTEND Surgery
PROC: 0WUF0JZ Supplement Abdominal Wall with Synthetic Substitute, Open Approach (ICD-10-PCS; 2019-01-30)
PROC: 0DNB0ZZ Release Ileum, Open Approach (ICD-10-PCS; 2019-01-30)
PROC: 0DB80ZZ Excision of Small Intestine, Open Approach (ICD-10-PCS; principal; 2019-01-30 13:30)
DX: A41.9 Sepsis, unspecified organism (principal); K65.9 Peritonitis, unspecified; K63.1 Perforation of intestine (nontraumatic); R65.21 Severe sepsis with septic shock; K43.6 Other and unspecified ventral hernia with obstruction, without gangrene; N17.9 Acute kidney failure, unspecified; K56.50 Intestinal adhesions [bands], unspecified as to partial versus complete obstruction; C79.89 Secondary malignant neoplasm of other specified sites; J45.909 Unspecified asthma, uncomplicated; F41.9 Anxiety disorder, unspecified; E83.42 Hypomagnesemia; F17.210 Nicotine dependence, cigarettes, uncomplicated; F32.9 Major depressive disorder, single episode, unspecified; E66.9 Obesity, unspecified; M54.9 Dorsalgia, unspecified; R59.1 Generalized enlarged lymph nodes; G89.29 Other chronic pain; D64.9 Anemia, unspecified; E87.6 Hypokalemia; Z88.8 Allergy status to other drugs, medicaments and biological substances; Z86.711 Personal history of pulmonary embolism; I25.2 Old myocardial infarction; Z85.038 Personal history of other malignant neoplasm of large intestine; Z92.21 Personal history of antineoplastic chemotherapy; Z72.89 Other problems related to lifestyle; Z90.49 Acquired absence of other specified parts of digestive tract; Z68.32 Body mass index [BMI] 32.0-32.9, adult; Z86.718 Personal history of other venous thrombosis and embolism
CPT/HCPCS: 36415; 71045; 74177; 80048; 80053; 82140; 82550; 83605; 83690; 83735; 83880; 84100; 84484; 85025; 85060; 86140; 87070; 87073; 87076; 87077; 87186; 87205; 87641; 88302; 88307; 93005; 96374; 96375; 99232; 99233; 99284; A9270-GY; A9272-GY; C1776; C1781; J0330; J1100; J1170; J1240; J1642; J1644; J1885; J2250; J2270; J2405; J2543; J2704; J2710; J3010; J3475; J3480; Q9967